=== PATIENT | female | born 1970 | race Caucasian/White ===

== ENCOUNTER 2017-07-15 12:11 | Emergency (ER) | payer BC, MEDICAID ==
[~2017-07-15] VITALS: Ht 160 cm; Wt 99.8 kg
[~2017-07-15 12:11] MED LIST: ALPR1T; ATRV10T; Advair; Albuterol Inhaler; BENZ100C18; BSP10T; BUSPAR; CELEBREX; CPR500T; CPR500T PO; Celebrex; DESM0.1T; DETROL; HYDR-32; HYDR-34; LEVO500T69 PO; LNS30CCR; LVF250T PO; METH4TAB PO; METR500T PO; MNTL10T; NAPR500T PO; Nexium; PARO10TA21; PHEN200T27; PRD10T; PROP1TAB77; RT-COMBINH; STOOL SOFTENER; TRM50T PO; Xopenex
--- OUTSIDE RECORDS SUMMARY | 2017-07-15 12:27 | XMS REPORT ---
Author Author KISHORE SARGENT Organization eClinicalWorks Address Unknown Phone Unavailable Care Team Providers Care Event Representative Name Role Phone KISHORE SARGENT CP Unavailable Allergies No Known Allergies Problems Problem Type Condition Code Onset Dates Condition Status Problem Overactive bladder N32.81 Active Problem Hepatitis B B19.10 Active Problem Type 2 diabetes mellitus with other specified complication E11.69 Active Problem Restless legs syndrome G25.81 Active Problem Depressive disorder, not elsewhere classified F32.9 Active Problem Degenerative disc disease, lumbar M51.36 Active Problem Anxiety F41.9 Active Problem Hypothyroid E03.9 Active Problem Asthma J45.909 Active Medications No Known Medications Results No Known Results Summary Purpose eClinicalWorks Submission
--- OUTSIDE RECORDS SUMMARY | 2017-07-15 12:27 | XMS REPORT ---
Author KISHORE Nicolas [facility] eClinicalWorks Address Unknown Phone Unavailable Care Team Providers Care Doper Operator Name Role Phone KISHORE SARGENT Unavailable Allergies No Known Allergies Problems Problem Type Condition Code Onset Dates Condition Status Problem Overactive bladder N32.81 Active Problem Degenerative disc disease, lumbar M51.36 Active Problem Anxiety F41.9 Active Problem Hepatitis B B19.10 Active Problem COPD (chronic obstructive pulmonary disease) J44.9 Active Problem Depressive disorder, not elsewhere classified F32.9 Active Problem Insomnia G47.00 Active Problem Hypothyroid E03.9 Active Problem Asthma J45.909 Active Problem Type 2 diabetes mellitus with other specified complication E11.69 Active Problem Restless legs syndrome G25.81 Active Medications Medication Code System Code Instructions Start Date End Date Status Dosage OxyContin [facility] 52599958649 30 MG orally every 12 hours 1 tablet Results No Known Results Summary Purpose eClinicalWorks Submission
--- OUTSIDE RECORDS SUMMARY | 2017-07-15 12:27 | XMS REPORT ---
Author Author KISHORE SARGENT [facility] eClinicalWorks Address Unknown Phone Unavailable Care Team Providers Care Boulevard Glassware Replacer Name Role Phone KISHORE SARGENT CP Unavailable Allergies No Known Allergies Problems Problem Type Condition Code Onset Dates Condition Status Problem Anxiety 300.00 Active Problem Diabetes 250.00 Active Problem Hepatitis B 070.30 Active Problem Degenerative lumbar disc 722.52 Active Problem Overactive bladder 596.51 Active Problem Hypothyroidism 244.9 Active Problem Asthma 493.90 Active Medications Medication Code System Code Instructions Start Date End Date Status Dosage Hydrocodone-Acetaminophen [facility] [address]-10 7.5-325 MG Orally 3 times a day MAX MUST LAST 30 DAYS Aug 22, 2015 1 tablet as needed OxyContin [facility] [address]-73 10 MG Orally every 12 hrs Aug 15, 2015 1 tablet Results No Known Results Summary Purpose eClinicalWorks Submission
--- OUTSIDE RECORDS SUMMARY | 2017-07-15 12:27 | XMS REPORT ---
Author Author KISHORE SARGENT [facility] eClinicalWorks Address Unknown Phone Unavailable Care Team Providers Care Business Administration Professor Name Role Phone KISHORE SARGENT Unavailable Allergies No Known Allergies Problems Problem Type Condition Code Onset Dates Condition Status Assessment Degenerative lumbar disc 722.52 Active Assessment Other intervertebral disc degeneration, lumbar region M51.36 Active Problem Anxiety 300.00 Active Problem Diabetes 250.00 Active Problem Hepatitis B 070.30 Active Problem Degenerative lumbar disc 722.52 Active Problem Overactive bladder 596.51 Active Problem Hypothyroidism 244.9 Active Problem Asthma 493.90 Active Medications No Known Medications Procedures Procedure Coding System Code Date X-RAY EXAM OF LOWER SPINE CPT-4 39240 Sep 17, 2015 Results No Known Results Summary Purpose eClinicalWorks Submission
--- OUTSIDE RECORDS SUMMARY | 2017-07-15 12:27 | XMS REPORT ---
Author Author KISHORE SARGENT Organization eClinicalWorks Address Unknown Phone Unavailable Care Team Providers Care Ceramics Engineer Name Role Phone KISHORE SARGENT Unavailable Allergies No Known Allergies Problems Problem Type Condition Code Onset Dates Condition Status Problem Anxiety 300.00 Active Problem Diabetes 250.00 Active Problem Hepatitis B 070.30 Active Problem Degenerative lumbar disc 722.52 Active Problem Overactive bladder 596.51 Active Problem Hypothyroidism 244.9 Active Problem Asthma 493.90 Active Medications Medication Code System Code Instructions Start Date End Date Status Dosage ProAir HFA [facility] [address]-42 108 (90 Base) MCG/ACT Inhalation every 4hours prn Sep 09, 2015 2 puffs as needed Results No Known Results Summary Purpose eClinicalWorks Submission
--- OUTSIDE RECORDS SUMMARY | 2017-07-15 12:28 | XMS REPORT ---
Author Author KISHORE SARGENT [facility] eClinicalWorks Address Unknown Phone Unavailable Care Team Providers Care Government Affairs Researcher Name Role Phone KISHORE SARGENT CP Unavailable [...] E03.9 Active Problem Asthma J45.909 Active Medications Medication Code System Code Instructions Start Date End Date Status Dosage MetFORMIN HCl [facility] [address]-29 500 MG Orally Once a day Oct 15, 2015 1 tablet with evening meal Results No Known Results Summary Purpose eClinicalWorks Submission
--- OUTSIDE RECORDS SUMMARY | 2017-07-15 12:28 | XMS REPORT ---
Author Author KISHORE SARGENT [facility] eClinicalWorks Address Unknown Phone Unavailable Care Team Providers Care C Python Developer Name Role Phone KISHORE SARGENT CP Unavailable [...] Instructions Start Date End Date Status Dosage Desmopressin Acetate [facility] [address]-79 0.2 MG Orally Once a day January 3 tablet Results No Known Results Summary Purpose eClinicalWorks Submission
--- OUTSIDE RECORDS SUMMARY | 2017-07-15 12:28 | XMS REPORT ---
Author Author KISHORE SARGENT Organization eClinicalWorks Address Unknown Phone Unavailable Care Team Providers Care Neonatal Intensive Care Nurse Name Role Phone KISHORE SARGENT CP Unavailable Allergies No Known Allergies Problems Problem Type Condition Code Onset Dates Condition Status Problem Hepatitis B B19.10 Active Problem Restless legs syndrome G25.81 Active Problem Hypothyroid E03.9 Active Problem Type 2 diabetes mellitus with other specified complication E11.69 Active Problem Anxiety F41.9 Active Problem Overactive bladder N32.81 Active Problem Asthma J45.909 Active Problem Degenerative disc disease, lumbar M51.36 Active Medications Medication Code System Code Instructions Start Date End Date Status Dosage ProAir HFA [facility] [address]-45 108 (90 Base) MCG/ACT Inhalation every 4hours prn Sep 09, 2015 2 puffs as needed Results No Known Results Summary Purpose eClinicalWorks Submission
--- OUTSIDE RECORDS SUMMARY | 2017-07-15 12:28 | XMS REPORT ---
Author Author KISHORE SARGENT [facility] eClinicalWorks Address Unknown Phone Unavailable Care Team Providers Care Ring Sorter Name Role Phone KISHORE SARGENT CP Unavailable Allergies No Known Allergies Problems Problem Type Condition Code Onset Dates Condition Status Problem Overactive bladder N32.81 Active Problem Degenerative disc disease, lumbar M51.36 Active Problem Anxiety F41.9 Active Problem COPD (chronic obstructive pulmonary disease) J44.9 Active Problem Depressive disorder, not elsewhere classified F32.9 Active Problem Insomnia G47.00 Active Problem Hypothyroid E03.9 Active Problem Asthma J45.909 Active Problem Type 2 diabetes mellitus with other specified complication E11.69 Active Problem Restless legs syndrome G25.81 Active Assessment Other intervertebral disc degeneration, lumbar region M51.36 Active Assessment Anxiety F41.9 Active Problem Hepatitis B B19.10 Active Medications Medication Code System Code Instructions Start Date End Date Status Dosage Hydrocodone-Acetaminophen [facility] [address]-33 7.5-325 MG Orally 3 times a day MAX MUST LAST 30 DAYS Aug 22, 2015 1 tablet as needed OxyContin [facility] [address]-34 30 MG Orally every 12 hrs Nov 12, 2015 1 tablet Xanax [facility] [address]-55 0.5 MG Orally Twice a day Oct 15, 2015 1 tablet Results No Known Results Summary Purpose eClinicalWorks Submission
--- OUTSIDE RECORDS SUMMARY | 2017-07-15 12:28 | XMS REPORT ---
Author Author KISHORE SARGENT Organization [facility] Address [address] [place] [address] Care Team Providers Care Scroll Shear Operator Name Role Phone DONNIE SARGENTNETTE Unavailable PROBLEMS Type Condition ICD9-CM Code [id number] Code Onset Dates Condition Status SNOMED Code Problem Overactive bladder N32.81 Active 577527943 Problem Degenerative disc disease, lumbar M51.36 Active 59753489 Problem Anxiety F41.9 Active 69540701 Problem Hepatitis B B19.10 Active 77797263 Problem Insomnia G47.00 Active 567931468 Problem COPD (chronic obstructive pulmonary disease) J44.9 Active 79396765 Problem Restless legs syndrome G25.81 Active 434956301 Problem Asthma J45.909 Active 922968425 Problem Depressive disorder, not elsewhere classified F32.9 Active 34947830 Problem Type 2 diabetes mellitus with other specified complication E11.69 Active 982450813 ALLERGIES Unknown Allergies SOCIAL HISTORY No smoking Hx information available PLAN OF CARE VITAL SIGNS MEDICATIONS Medication Instructions Dosage Frequency Start Date End Date Duration Status Montelukast Sodium 10 MG TAKE ONE TABLET BY MOUTH IN THE EVENING 30 Active Hydrocodone-Acetaminophen 7.5-325 MG TAKE ONE TABLET BY MOUTH THREE TIMES DAILY NEEDED (MUST LAST 28 DAYS) 28 Active Xanax 0.5 MG Orally Twice a day 1 tablet 12h 17 Sep, 2015 28 Active OxyContin 30 MG TAKE ONE TABLET BY MOUTH EVERY 12 HOURS 28 Active RESULTS No Results PROCEDURES No Known procedures IMMUNIZATIONS No Known Immunizations
--- OUTSIDE RECORDS SUMMARY | 2017-07-15 12:28 | XMS REPORT ---
Author Author KISHORE SARGENT Organization eClinicalWorks Address Unknown Phone Unavailable Care Team Providers Care Fellmongering Machine Operator Name Role Phone KISHORE SARGENT CP Unavailable [...]
--- OUTSIDE RECORDS SUMMARY | 2017-07-15 12:28 | XMS REPORT ---
Author Author KISHORE SARGENT [facility] eClinicalWorks Address Unknown Phone Unavailable Care Team Providers Care Lockstitch Tunnel Elastic Operator Name Role Phone KISHORE SARGENT CP Unavailable Allergies No Known Allergies Problems Problem Type Condition Code Onset Dates Condition Status Problem Hepatitis B B19.10 Active Problem Anxiety F41.9 Active Problem Overactive bladder N32.81 Active Problem COPD (chronic obstructive pulmonary disease) J44.9 Active Problem Depressive disorder, not elsewhere classified F32.9 Active Problem Insomnia G47.00 Active Problem Asthma J45.909 Active Problem Degenerative disc disease, lumbar M51.36 Active Problem Type 2 diabetes mellitus with other specified complication E11.69 Active Problem Restless legs syndrome G25.81 Active Medications No Known Medications Results No Known Results Summary Purpose eClinicalWorks Submission
--- OUTSIDE RECORDS SUMMARY | 2017-07-15 12:28 | XMS REPORT ---
Author Author KISHORE SARGENT [facility] eClinicalWorks Address Unknown Phone Unavailable Care Team Providers Care Anesthesiologist Attending Name Role Phone KISHORE SARGENT Unavailable Allergies No Known Allergies Problems Problem Type Condition ICD-9 Code Onset Dates Condition Status Problem Hypothyroidism 244.9 Active Problem Asthma 493.90 Active Problem Diabetes 250.00 Active Assessment Hepatitis B 070.30 Active Problem Degenerative lumbar disc 722.52 Active Problem Overactive bladder 596.51 Active Medications Medication Code System Code Instructions Start Date End Date Status Dosage Pravastatin Sodium [facility] [address]-99 20 MG Orally Once a day Aug 19, 2015 1 tablet Procedures Procedure Coding System Code Date No Charge CPT-4 06379 Aug 19, 2015 Results No Known Results Summary Purpose eClinicalWorks Submission
--- OUTSIDE RECORDS SUMMARY | 2017-07-15 12:28 | XMS REPORT ---
Author Author TUYET LAUGHLIN Organization [facility] Address [address] [place] [address] Care Team Providers Care Right Of Way Appraiser Name Role Phone TUYET LAUGHLIN Unavailable PROBLEMS Type Condition ICD9-CM Code [id number] Code Onset Dates Condition Status SNOMED Code Problem Depressive disorder, not elsewhere classified F32.9 Active 50530291 Problem Insomnia G47.00 Active 268542029 Problem COPD (chronic obstructive pulmonary disease) J44.9 Active 07520263 Problem Asthma 493.90 Active 200356705 Problem Hypothyroidism, unspecified E03.9 Active 53542829 Problem Chronic pain syndrome G89.4 Active 246823096 Problem Mild intermittent asthma without complication J45.20 Active 332276199 Problem Gastroesophageal reflux disease with esophagitis K21.0 Active 171085928 Problem Combined hyperlipidemia E78.2 Active 713890405 Problem Hepatitis B B19.10 Active 84788413 Problem Degenerative disc disease, lumbar M51.36 Active 03450850 Problem Asthma J45.909 Active 182407070 Problem Overactive bladder N32.81 Active 780831181 Problem Restless legs syndrome G25.81 Active 663263962 Problem Anxiety F41.9 Active 65574079 Problem Type 2 diabetes mellitus with other specified complication E11.69 Active 896184130 ALLERGIES Unknown Allergies SOCIAL HISTORY No smoking Hx information available PLAN OF CARE VITAL SIGNS MEDICATIONS Medication Instructions Dosage Frequency Start Date End Date Duration Status MS Contin 30 MG Orally every 12 hrs 1 tablet 12h 13 Oct, 2016 Nov, 28 days Active Xanax 0.5 MG Orally Twice a day 1 tablet 12h Sep, 28 Active Hydrocodone-Acetaminophen 7.5-325 MG Orally every 8 hours, PRN TAKE ONE TABLET BY MOUTH THREE TIMES DAILY NEEDED (MUST LAST 28 DAYS) Sep, 28 Active RESULTS No Results PROCEDURES No Known procedures IMMUNIZATIONS No Known Immunizations
--- OUTSIDE RECORDS SUMMARY | 2017-07-15 12:28 | XMS REPORT ---
Author KISHORE Nicolas [facility] eClinicalWorks Address Unknown Phone Unavailable Care Team Providers Care Principal Architectural Firm Name Role Phone KISHORE SARGENT CP Unavailable Allergies, Adverse Reactions, Alerts Substance Reaction Event Type N.K.D.A. Info Not Available Non Drug Allergy Problems Problem Type Condition Code Onset Dates Condition Status Assessment Anxiety F41.9 Active Problem Overactive bladder N32.81 Active Problem Hepatitis B B19.10 Active Assessment Type 2 diabetes mellitus with other specified complication E11.69 Active Assessment Depressive disorder, not elsewhere classified F32.9 Active Problem Type 2 diabetes mellitus with other specified complication E11.69 Active Problem Restless legs syndrome G25.81 Active Problem Depressive disorder, not elsewhere classified F32.9 Active Problem Degenerative disc disease, lumbar M51.36 Active Problem Anxiety F41.9 Active Problem Hypothyroid E03.9 Active Problem Asthma J45.909 Active Medications Medication Code System Code Instructions Start Date End Date Status Dosage Hydrocodone-Acetaminophen [facility] [address]-07 7.5-325 MG Orally 3 times a day MAX MUST LAST 30 DAYS Aug 22, 2015 1 tablet as needed Levothyroxine Sodium [facility] [address]-60 88 MCG Orally twice weekly with 3 days between shampoos [address] [facility] [address]-98 10 MG Orally every 12 hrs Aug 15, 2015Oct [address] [facility] [address]-[address] [facility] [address]-50 200 MG Orally Once a day [address] [facility] [address]-35 10 MG Orally Once a day [address] [facility] [address]-69 250-50 MCG/DOSE Inhalation Twice a day Oct 15, [address] [facility] [address]-18 0.2 MG Orally Once a day Nov 13, [address] [facility] [address]-57 10 MG Orally Once a day Aug 15, 2015 1 tablet in the evening MetFORMIN HCl ER [facility] [address]-40 500 MG Orally Once a day Oct 15, 2015 1 tablet with evening meal Requip [facility] [address]-34 2 MG Orally Once a day before bed Sep 23, 2015 1 tablet 1 to 3 hours before bedtime Pravastatin Sodium [facility] 57660918893 20 MG Orally Once a day [address] [facility] 59173280542 108 (90 Base) MCG/ACT INHALE TWO PUFFS BY MOUTH EVERY [address] [facility] [address]-84 0.5 MG Orally Twice a day Oct 15, 2015 1 tablet Procedures Procedure Coding System Code Date Office Visit, Est Pt., Level 3 CPT-4 94792 Oct 29, 2015 Vital Signs Date/Time: Oct 29, 2015 Temperature 98.3 F Weight 299.1 lbs Height 63.0 in BMI 52.98 Index Blood Pressure Diastolic 82 mmHg Blood Pressure Systolic 122 mmHg Cardiac Monitoring Heart Rate 76 bpm Results No Known Results Summary Purpose eClinicalWorks Submission
--- OUTSIDE RECORDS SUMMARY | 2017-07-15 12:28 | XMS REPORT ---
Author KISHORE Nicolas [facility] eClinicalWorks Address Unknown Phone Unavailable Care Team Providers Care Log Handler Name Role Phone KISHORE SARGENT Unavailable Allergies [...] Date Status Dosage Hydrocodone-Acetaminophen [facility] 75256962371 7.5-325 MG Oct 05, 2016 TAKE ONE TABLET BY MOUTH THREE TIMES DAILY NEEDED (MUST LAST 28 DAYS) OxyContin [facility] [address]-33 30 MG Orally 2 times a day Oct 05, 2016 1 tablet Alprazolam [facility] 85829083304 0.5 MG TAKE ONE TABLET BY MOUTH TWICE DAILY Results No Known Results Summary Purpose eClinicalWorks Submission
--- OUTSIDE RECORDS SUMMARY | 2017-07-15 12:28 | XMS REPORT ---
Author Author KISHORE SARGENT [facility] eClinicalWorks Address Unknown Phone Unavailable Care Team Providers Care Rivet Tosser Name Role Phone KISHORE SARGENT CP Unavailable [...] Restless legs syndrome G25.81 Active Assessment Other chronic pain G89.29 Active Assessment COPD (chronic obstructive pulmonary disease) J44.9 Active Assessment Anxiety F41.9 Active Problem Hepatitis B B19.10 Active Medications Medication Code System Code Instructions Start Date End Date Status Dosage OxyContin [facility] [address]-83 30 MG Orally every 12 hrs Nov 12, 2015 1 tablet Xanax [facility] [address]-73 0.5 MG Orally Twice a day Oct 15, 2015 1 tablet Hydrocodone-Acetaminophen [facility] [address]-44 7.5-325 MG Orally 3 times a day Aug 22, 2015 1 tablet as needed Results No Known Results Summary Purpose eClinicalWorks Submission
--- OUTSIDE RECORDS SUMMARY | 2017-07-15 12:29 | XMS REPORT ---
Author Author KISHORE SARGENT [facility] eClinicalWorks Address Unknown Phone Unavailable Care Team Providers Care Cleaning Team Member Name Role Phone KISHORE SARGENT CP Unavailable Allergies No Known Allergies Problems Problem Type Condition Code Onset Dates Condition Status Problem Type 2 diabetes mellitus with other specified complication E11.69 Active Problem COPD (chronic obstructive pulmonary disease) J44.9 Active Problem Depressive disorder, not elsewhere classified F32.9 Active Problem Hypothyroidism, unspecified E03.9 Active Problem Gastroesophageal reflux disease with esophagitis K21.0 Active Problem Asthma 493.90 Active Problem Mild intermittent asthma without complication J45.20 Active Problem Insomnia G47.00 Active Problem Combined hyperlipidemia E78.2 Active Problem Chronic pain syndrome G89.4 Active Problem Anxiety F41.9 Active Problem Degenerative disc disease, lumbar M51.36 Active Problem Hepatitis B B19.10 Active Problem Asthma J45.909 Active Problem Overactive bladder N32.81 Active Problem Restless legs syndrome G25.81 Active Medications No Known Medications Results No Known Results Summary Purpose eClinicalWorks Submission
--- OUTSIDE RECORDS SUMMARY | 2017-07-15 12:29 | XMS REPORT ---
Author Author KISHORE SARGENT Organization eClinicalWorks Address Unknown Phone Unavailable Care Team Providers Care Guest Experience Representative Name Role Phone KISHORE SARGENT CP [...]
--- OUTSIDE RECORDS SUMMARY | 2017-07-15 12:29 | XMS REPORT ---
Author Author KISHORE SARGENT [facility] eClinicalWorks Address Unknown Phone Unavailable Care Team Providers Care Laundry Operator Finishing Name Role Phone KISHORE SARGENT CP Unavailable [...] Instructions Start Date End Date Status Dosage GlipiZIDE [facility] [address]-69 10 MG Orally Once a day 1 tablet Results No Known Results Summary Purpose eClinicalWorks Submission
--- OUTSIDE RECORDS SUMMARY | 2017-07-15 12:29 | XMS REPORT ---
Author Author VERONICA GRIJALVA eClinicalWorks Address Unknown Phone Unavailable Care Team Providers Care Boring Machine Operator Helper Name Role Phone VERONICA GRIJALVA CP Unavailable Allergies, Adverse Reactions, Alerts Substance Reaction Event Type N.K.D.A. Info Not Available Non Drug Allergy Problems Problem Type Condition Code Onset Dates Condition Status Assessment Dental examination Z01.20 Active Problem Overactive bladder N32.81 Active Problem [...] Instructions Start Date End Date Status Dosage Requip [facility] [address]-03 2 MG Orally Once a day before bed Sep 23, 2015 1 tablet 1 to 3 hours before bedtime Advair Diskus [facility] [address]-56 250-50 MCG/DOSE Inhalation Twice a day Oct 15, 2015 1 puff Levothyroxine Sodium [facility] [address]-72 88 MCG Orally Once a day 1 tablet MetFORMIN HCl ER [facility] [address]-27 not defined Hydrocodone-Acetaminophen [facility] [address]-13 7.5-325 MG Orally 3 times a day MAX MUST LAST 30 DAYS Aug 22, 2015 1 tablet as needed MetFORMIN HCl ER [facility] [address]-07 500 MG Orally Once a day Oct 15, 2015 1 tablet with evening meal Pravastatin Sodium [facility] 72977862303 20 MG Orally Once a day 1 tablet Singulair [facility] 82818591937 10 MG Orally Once a day 1 tablet in the evening Xanax [facility] [address]-28 0.5 MG Orally Twice a day Oct 15, 2015 1 tablet GlipiZIDE [facility] [address]-25 10 MG Orally Once a day 1 tablet Desmopressin Acetate [facility] [address]-51 0.2 MG Orally Once a day January 3 tablet OxyContin [facility] [address]-24 30 MG Orally every 12 hrs Nov 12, 2015 1 tablet Celebrex [facility] [address]-26 200 MG Orally Once a day 1 capsule ProAir HFA [facility] 57473461373 108 (90 Base) MCG/ACT INHALE TWO PUFFS BY MOUTH EVERY 4 HOURS NEEDED Procedures Procedure Coding System Code Date INTRAORL-PERIAPICAL 1 FILM 23286 CPT-4 D0220 Nov 27, 2015 LTD ORAL EVALUATION - PROBLEM FOCUS CPT-4 D0140 Nov 27, 2015 Vital Signs Date/Time: Nov 27, 2015 Blood Pressure Diastolic 65 mmHg Blood Pressure Systolic 130 mmHg Height 63.0 in Results No Known Results Summary Purpose eClinicalWorks Submission
--- OUTSIDE RECORDS SUMMARY | 2017-07-15 12:29 | XMS REPORT ---
Author Author KISHORE SARGENT Organization eClinicalWorks Address Unknown Phone Unavailable Care Team Providers Care Head Track Coach Name Role Phone KISHORE SARGENT CP Unavailable [...]
--- OUTSIDE RECORDS SUMMARY | 2017-07-15 12:29 | XMS REPORT ---
Author Author KISHORE SARGENT [facility] eClinicalWorks Address Unknown Phone Unavailable Care Team Providers Care School Office Manager Name Role Phone KISHORE SARGENT CP Unavailable [...] Instructions Start Date End Date Status Dosage Levothyroxine Sodium [facility] [address]-89 88 MCG Orally Once a day 1 tablet Results No Known Results Summary Purpose eClinicalWorks Submission
--- OUTSIDE RECORDS SUMMARY | 2017-07-15 12:29 | XMS REPORT ---
Author KISHORE Nicolas [facility] eClinicalWorks Address Unknown Phone Unavailable Care Team Providers Care [employer] D[employer] Specialist Name Role Phone KISHORE SARGENT CP Unavailable Allergies, Adverse Reactions, Alerts Substance Reaction Event Type N.K.D.A. Info Not Available Non Drug Allergy Problems Problem Type Condition Code Onset Dates Condition Status Assessment Dysuria R30.0 Active Problem Overactive bladder N32.81 Active Problem Hepatitis B B19.10 Active Problem Type 2 diabetes mellitus with other specified complication E11.69 Active Problem Restless legs syndrome G25.81 Active Problem Depressive disorder, not elsewhere classified F32.9 Active Problem Degenerative disc disease, lumbar M51.36 Active Problem Anxiety F41.9 Active Problem Hypothyroid E03.9 Active Problem Asthma J45.909 Active Assessment Overactive bladder N32.81 Active Assessment Depressive disorder, not elsewhere classified F32.9 Active Assessment Hypercholesterolemia E78.0 Active Assessment Hypothyroid E03.9 Active Assessment Restless legs syndrome G25.81 Active Assessment Degenerative disc disease, lumbar M51.36 Active Assessment Type 2 diabetes mellitus with other specified complication E11.69 Active Assessment Asthma J45.909 Active Assessment Anxiety F41.9 Active Medications Medication Code System Code Instructions Start Date End Date Status Dosage Levothyroxine Sodium [facility] [address]-66 88 MCG Orally Once a day 1 tablet Hydrocodone-Acetaminophen [facility] [address]-56 7.5-325 MG Orally 3 times a day MAX MUST LAST 30 DAYS Aug 22, 2015 1 tablet as needed Pravastatin Sodium [facility] 37487414504 20 MG Orally Once a day 1 tablet MetFORMIN HCl ER [facility] [address]-09 not defined Singulair [facility] 93918465977 10 MG Orally Once a day 1 tablet in the evening GlipiZIDE [facility] [address]-72 10 MG Orally Once a day 1 tablet OxyContin [facility] [address]-42 30 MG Orally every 12 hrs Nov 12, 2015 1 tablet Celebrex [facility] [address]-70 200 MG Orally Once a day 1 capsule Advair Diskus [facility] [address]-46 250-50 MCG/DOSE Inhalation Twice a day Oct 15, 2015 1 puff Desmopressin Acetate [facility] [address]-65 0.2 MG Orally Once a day January 3 tablet Requip [facility] [address]-15 2 MG Orally Once a day before bed Sep 23, 2015 1 tablet 1 to 3 hours before bedtime Cipro [facility] [address]-52 500 MG Orally Twice a day Nov 12, 2015 Nov 19, 2015 1 tablet ProAir HFA [facility] 24941376974 108 (90 Base) MCG/ACT INHALE TWO PUFFS BY MOUTH EVERY 4 HOURS NEEDED MetFORMIN HCl ER [facility] [address]-60 500 MG Orally Once a day Oct 15, 2015 1 tablet with evening meal Xanax [facility] [address]-44 0.5 MG Orally Twice a day Oct 15, 2015 1 tablet Procedures Procedure Coding System Code Date X-RAY EXAM OF NECK SPINE CPT-4 17150 Nov 12, 2015 Office Visit, Est Pt., Level 4 CPT-4 98196 Nov 12, 2015 URINALYSIS, AUTO, W/O SCOPE CPT-4 58919 Nov 12, 2015 Vital Signs Date/Time: Nov 12, 2015 Temperature 96.8 F Weight 288.6 lbs Height 63.0 in BMI 51.12 Index Blood Pressure Diastolic 80 mmHg Blood Pressure Systolic 120 mmHg Cardiac Monitoring Heart Rate 78 bpm Results Name Result Date Reference Range Unit Abnormality Flag UA LONG DIP (IN HOUSE) ----REYES negative 20151112 ----NIT negative 20151112 ----SG >1.030 20151112 ----KET negative 20151112 ----YASIR negative 20151112 ----GLU negative 20151112 ----Odor no 20151112 ----pH 5.5 20151112 ----BLO 3+ 20151112 ----URO 0.2 20151112 ----Protein trace 20151112 ----Lot # [id number] ----Exp date 20151112 ----Clarity clear 20151112 ----Color yellow 20151112 Summary Purpose eClinicalWorks Submission
--- OUTSIDE RECORDS SUMMARY | 2017-07-15 12:29 | XMS REPORT ---
Author Author KISHORE SARGENT [facility] eClinicalWorks Address Unknown Phone Unavailable Care Team Providers Care Parole Or Probation Officer Name Role Phone KISHORE SARGENT Unavailable Allergies [...] Degenerative disc disease, lumbar M51.36 Active Medications No Known Medications Results No Known Results Summary Purpose eClinicalWorks Submission
--- OUTSIDE RECORDS SUMMARY | 2017-07-15 12:29 | XMS REPORT ---
Author Author KISHORE SARGENT [facility] Address [address] [place] [address] Care Team Providers Care Executive Services Administrator Name Role Phone KISHORE SARGENT Unavailable PROBLEMS Type Condition ICD9-CM Code [id number] Code Onset Dates Condition Status SNOMED Code Problem Overactive bladder N32.81 Active 270332734 Problem Degenerative disc disease, lumbar M51.36 Active 80299540 Problem Anxiety F41.9 Active 18507652 Problem Hepatitis B B19.10 Active 79913233 Problem Insomnia G47.00 Active 656065288 Problem COPD (chronic obstructive pulmonary disease) J44.9 Active 41292967 Problem Restless legs syndrome G25.81 Active 270166173 Problem Asthma J45.909 Active 020861205 Problem Depressive disorder, not elsewhere classified F32.9 Active 91217356 Problem Type 2 diabetes mellitus with other specified complication E11.69 Active 932662844 ALLERGIES Unknown Allergies SOCIAL HISTORY No smoking Hx information available PLAN OF CARE VITAL SIGNS MEDICATIONS Medication Instructions Dosage Frequency Start Date End Date Duration Status Levothyroxine Sodium 88 MCG Orally Once a day 1 tablet 24h 30 Active RESULTS No Results PROCEDURES No Known procedures IMMUNIZATIONS No Known Immunizations
--- OUTSIDE RECORDS SUMMARY | 2017-07-15 12:29 | XMS REPORT ---
Author Author KISHORE SARGENT Organization eClinicalWorks Address Unknown Phone Unavailable Care Team Providers Care Statistician Applied Name Role Phone KISHORE SARGENT CP Unavailable [...]
--- OUTSIDE RECORDS SUMMARY | 2017-07-15 12:29 | XMS REPORT ---
Author KISHORE Nicolas [facility] eClinicalWorks Address Unknown Phone Unavailable Care Team Providers Care Tobacco Hanger Name Role Phone KISHORE SARGENT CP Unavailable Allergies, Adverse Reactions, Alerts Substance Reaction Event Type N.K.D.A. Info Not Available Non Drug Allergy Problems Problem Type Condition Code Onset Dates Condition Status Assessment Type 2 diabetes mellitus with other specified complication E11.69 Active Problem Overactive bladder N32.81 Active Problem Hepatitis B B19.10 Active Problem Type 2 diabetes mellitus with other specified complication E11.69 Active Problem Restless legs syndrome G25.81 Active Problem Depressive disorder, not elsewhere classified F32.9 Active Problem Degenerative disc disease, lumbar M51.36 Active Problem Anxiety F41.9 Active Problem Hypothyroid E03.9 Active Problem Asthma J45.909 Active Assessment Anxiety F41.9 Active Assessment Overactive bladder N32.81 Active Assessment Asthma J45.909 Active Assessment Degenerative disc disease, lumbar M51.36 Active Assessment Restless legs syndrome G25.81 Active Medications Medication Code System Code Instructions Start Date End Date Status Dosage ProAir HFA [facility] [place] [address]-10 108 (90 Base) MCG/ACT Inhalation every 4hours prn Sep 09, 2015 2 puffs as needed Xanax [facility] [place] [address]-41 0.5 MG Orally Twice a day Oct 15, 2015 1 tablet Pravastatin Sodium [facility] 92398657594 20 MG Orally Once a day 1 tablet Levothyroxine Sodium [facility] [place] [address]-14 88 MCG Orally twice weekly with 3 days between shampoos 1 tablet OxyContin [facility] [place] [address]-32 10 MG Orally every 12 hrs Aug 15, 2015 1 tablet MetFORMIN HCl ER [facility] [place] [address]-06 not defined Hydrocodone-Acetaminophen [facility] [place] [address]-49 7.5-325 MG Orally 3 times a day MAX MUST LAST 30 DAYS Aug 22, 2015 1 tablet as needed Singulair [facility] [place] [address]-73 10 MG Orally Once a day Aug 15, 2015 1 tablet in the evening MetFORMIN HCl ER [facility] [place] [address]-95 500 MG Orally Once a day Oct 15, 2015 1 tablet with evening meal Requip [facility] [place] [address]-97 2 MG Orally Once a day before bed Sep 23, 2015 1 tablet 1 to 3 hours before bedtime Candida Contour Monitor [facility] [place] [address]-10 w/Device 2 times a day Aug 22, 2015 as directed Aspirin [facility] [place] 85[address]82 81 MG Orally Once a day 1 tablet GlipiZIDE [facility] [place] [address]-94 10 MG Orally Once a day 1 tablet Desmopressin Acetate [facility] [place] [address]-33 0.2 MG Orally Once a day Nov 13, 2015 3 tablet Candida Contour Test [facility] [place] [place] 0 1 3 times a day PER INSURANCE Aug 22, 2015 1 STRIP Advair Diskus [facility] [place] [address]-53 250-50 MCG/DOSE Inhalation Twice a day Oct 15, 2015 1 puff Celebrex [facility] [place] [address]-75 200 MG Orally Once a day 1 capsule Procedures Procedure Coding System Code Date Office Visit, Est Pt., Level 4 CPT-4 46691 Oct 15, 2015 Vital Signs Date/Time: Oct 15, 2015 Temperature 98.1 F Weight 291 lbs Height 63.0 in BMI 51.54 Index Blood Pressure Diastolic 68 mmHg Blood Pressure Systolic 128 mmHg Cardiac Monitoring Heart Rate 82 bpm Results No Known Results Summary Purpose eClinicalWorks Submission
--- OUTSIDE RECORDS SUMMARY | 2017-07-15 12:29 | XMS REPORT ---
Author Author OTILIA DIXON Organization eClinicalWorks Address Unknown Phone Unavailable Care Team Providers Care Lawn Mower Sharpener Name Role Phone OTILIA DIXON CP Unavailable Allergies No Known Allergies Problems Problem Type Condition Code Onset Dates Condition Status Assessment Depressive disorder, not elsewhere classified F32.9 Active Problem Overactive bladder N32.81 Active Problem Hepatitis B B19.10 Active Assessment Anxiety disorder, unspecified F41.9 Active Problem Type 2 diabetes mellitus with other specified complication E11.69 Active Problem Restless legs syndrome G25.81 Active Problem Depressive disorder, not elsewhere classified F32.9 Active Problem Degenerative disc disease, lumbar M51.36 Active Problem Anxiety F41.9 Active Problem Hypothyroid E03.9 Active Problem Asthma J45.909 Active Medications No Known Medications Procedures Procedure Coding System Code Date Psych diagnostic evaluation, established patient CPT-4 86273 Oct 15, 2015 Results No Known Results Summary Purpose eClinicalWorks Submission
--- OUTSIDE RECORDS SUMMARY | 2017-07-15 12:30 | XMS REPORT ---
Author KISHORE Nicolas [facility] eClinicalWorks Address Unknown Phone Unavailable Care Team Providers Care Appellate Court Clerk Name Role Phone KISHORE SARGENT Unavailable Allergies No Known Allergies Problems Problem Type Condition Code Onset Dates Condition Status Assessment Degenerative disc disease at L5-S1 level M51.36 Active Problem Overactive bladder N32.81 Active Problem [...]
--- OUTSIDE RECORDS SUMMARY | 2017-07-15 12:30 | XMS REPORT ---
Author KISHORE Nicolas [facility] eClinicalWorks Address Unknown Phone Unavailable Care Team Providers Care Production Quality Manager Name Role Phone KISHORE SARGENT CP Unavailable Allergies, Adverse Reactions, Alerts Substance Reaction Event Type N.K.D.A. Info Not Available Non Drug Allergy Problems Problem Type Condition Code Onset Dates Condition Status Assessment Degenerative disc disease, lumbar M51.36 Active Problem Hepatitis B B19.10 Active Assessment Type 2 diabetes mellitus with other specified complication E11.69 Active Problem Restless legs syndrome G25.81 Active Problem Hypothyroid E03.9 Active Problem Type 2 diabetes mellitus with other specified complication E11.69 Active Problem Anxiety F41.9 Active Problem Overactive bladder N32.81 Active Problem Asthma J45.909 Active Problem Degenerative disc disease, lumbar M51.36 Active Assessment Anxiety F41.9 Active Assessment Asthma J45.909 Active Assessment Hypercholesteremia E78.0 Active Assessment Hypothyroid E03.9 Active Assessment Overactive bladder N32.81 Active Assessment Restless legs syndrome G25.81 Active Medications Medication Code System Code Instructions Start Date End Date Status Dosage Hydrocodone-Acetaminophen [facility] [address]-12 7.5-325 MG Orally 3 times a day MAX MUST LAST 30 DAYS Aug 22, 2015 1 tablet as needed Desmopressin Acetate [facility] [address]-63 0.2 MG Orally Once a day Nov 13, 2015 3 tablet Singulair [facility] [address]-28 10 MG Orally Once a day Aug 15, 2015 1 tablet in the evening Candida Contour Monitor [facility] [address]-58 w/Device 2 times a day Aug 22, 2015 as directed Vistaril [facility] [address]-69 25 MG Orally every 8 hrs PRN ANXIETY Aug 22, 2015 1 capsule as needed OxyContin [facility] [address]-62 10 MG Orally every 12 hrs Aug 15, 2015 1 tablet Ativan [facility] [address]-41 0.5 MG Orally Twice a day Sep 23, 2015 1 tablet as needed Metformin HCl [facility] [address]-67 500 MG Orally Twice a day Aug 22, 2015 1 tablet with meals Levothyroxine Sodium [facility] [address]-91 88 MCG Orally twice weekly with 3 days between shampoos 1 tablet Candida Contour Test [facility] 0 1 3 times a day PER INSURANCE Aug 22, 2015 1 STRIP Aspirin [facility] [address]043 81 MG Orally Once a day 1 tablet ProAir HFA [facility] [address]-82 108 (90 Base) MCG/ACT Inhalation every 4hours prn Sep 09, 2015 2 puffs as needed Pravastatin Sodium [facility] 07707339567 20 MG Orally Once a day 1 tablet GlipiZIDE [facility] [address]-65 10 MG Orally Once a day 1 tablet Combivent Respimat [facility] [address]-03 20-100 MCG/ACT Inhalation Four times a day Aug 15, 2015 1 puff Requip [facility] [address]-23 2 MG Orally Once a day before bed Sep 23, 2015 1 tablet 1 to 3 hours before bedtime Symbicort [facility] [address]-35 160-4.5 MCG/ACT Inhalation Twice a day Sep 23, 2015 2 puffs Celebrex [facility] [address]-46 200 MG Orally Once a day 1 capsule Procedures Procedure Coding System Code Date Office Visit, S[place] Pt., Level 4 CPT-4 74339 Sep 23, 2015 Vital Signs Date/Time: Sep 23, 2015 Temperature 98.3 F Weight 292.5 lbs Height 63.0 in BMI 51.81 Index Blood Pressure Diastolic 70 mmHg Blood Pressure Systolic 122 mmHg Cardiac Monitoring Heart Rate 88 bpm Results No Known Results Summary Purpose eClinicalWorks Submission
--- OUTSIDE RECORDS SUMMARY | 2017-07-15 12:30 | XMS REPORT ---
Author KISHORE Nicoals [facility] eClinicalWorks Address Unknown Phone Unavailable Care Team Providers Care Traveling Auditor Name Role Phone KISHORE SARGENT Unavailable Allergies [...] Start Date End Date Status Dosage Hydrocodone-Acetaminophen [facility] [address]-35 7.5-325 MG Orally 3 times a day MAX MUST LAST 30 DAYS Aug 22, 2015 1 tablet as needed Results No Known Results Summary Purpose eClinicalWorks Submission
--- OUTSIDE RECORDS SUMMARY | 2017-07-15 12:30 | XMS REPORT ---
Author KISHORE Nicolas [facility] eClinicalWorks Address Unknown Phone Unavailable Care Team Providers Care Finish Repairer Name Role Phone KISHORE SARGENT CP Unavailable Allergies, Adverse Reactions, Alerts Substance Reaction Event Type N.K.D.A. Info Not Available Non Drug Allergy Problems Problem Type Condition ICD-9 Code Onset Dates Condition Status Assessment Asthma 493.90 Active Assessment Diabetes 250.00 Active Assessment Hypothyroidism 244.9 Active Problem Anxiety 300.00 Active Problem Diabetes 250.00 Active Problem Hepatitis B 070.30 Active Problem Degenerative lumbar disc 722.52 Active Problem Overactive bladder 596.51 Active Problem Hypothyroidism 244.9 Active Problem Asthma 493.90 Active Assessment Anxiety 300.00 Active Assessment Hepatitis B 070.30 Active Assessment Overactive bladder 596.51 Active Assessment Degenerative lumbar disc 722.52 Active Medications Medication Code System Code Instructions Start Date End Date Status Dosage Desmopressin Acetate [facility] [address]-09 0.2 MG Orally Once a day Nov 13, 2015 3 tablet Candida Contour Test [place] 0 1 3 times a day PER INSURANCE Aug 22, 2015 1 STRIP Celebrex [facility] [address]-99 200 MG Orally Once a day Aug 22, 2015 Nov 20, 2015 1 capsule Levothyroxine Sodium [facility] [address]-75 88 MCG Orally twice weekly with 3 days between shampoos 1 tablet Hydrocodone-Acetaminophen [facility] [address]-12 7.5-325 MG Orally 3 times a day MAX MUST LAST 30 DAYS Aug 22, 2015 Nov 20, 2015 1 tablet as needed OxyContin [facility] [address]-19 10 MG Orally every 12 hrs Aug 15, 2015Aug 1 tablet Candida Contour Monitor [facility] [address]-59 w/Device 2 times a day Aug 22, 2015 as directed Pravastatin Sodium [facility] [address]-52 20 MG Orally Once a day Aug 19, 2015 1 tablet Aspirin [facility] [address]77 81 MG Orally Once a day 1 tablet Singulair [facility] [address]-50 10 MG Orally Once a day Aug 15, 2015 1 tablet in the evening Vistaril [facility] [address]-22 25 MG Orally every 8 hrs PRN ANXIETY Aug 22, 2015 1 capsule as needed GlipiZIDE [facility] [address]-36 10 MG Orally Once a day 1 tablet Metformin HCl [facility] [address]-45 500 MG Orally Twice a day Aug 22, 2015 1 tablet with meals Combivent Respimat [facility] [address]-86 20-100 MCG/ACT Inhalation Four times a day Aug 15, 2015 1 puff Procedures Procedure Coding System Code Date Office Visit, Est Pt., Level 4 CPT-4 91761 Aug 22, 2015 Vital Signs Date/Time: Aug 22, 2015 Temperature 97.1 F Weight 295.0 lbs Height 63.0 in BMI 52.25 Index Blood Pressure Diastolic 70 mmHg Blood Pressure Systolic 120 mmHg Cardiac Monitoring Heart Rate 78 bpm Results No Known Results Summary Purpose eClinicalWorks Submission
--- OUTSIDE RECORDS SUMMARY | 2017-07-15 12:30 | XMS REPORT ---
Author KISHORE Nicolas [facility] eClinicalWorks Address Unknown Phone Unavailable Care Team Providers Care Back Roll Lathe Operator Name Role Phone KISHORE SARGENT CP [...] E03.9 Active Problem Asthma J45.909 Active Assessment Depressive disorder, not elsewhere classified F32.9 Active Assessment Degenerative disc disease, lumbar M51.36 Active Assessment Asthma J45.909 Active Assessment Overactive bladder N32.81 Active Assessment Hypothyroid E03.9 Active Assessment Anxiety F41.9 Active Assessment Restless legs syndrome G25.81 Active Medications Medication Code System Code Instructions Start Date End Date Status Dosage GlipiZIDE [facility] [address]-17 10 MG Orally Once a day 1 tablet ProAir HFA [facility] 42684616061 108 (90 Base) MCG/ACT INHALE TWO PUFFS BY MOUTH EVERY 4 HOURS NEEDED Trazodone HCl [facility] [address]-16 100 MG Orally Once a day Jan 01, 2016 1 tablet at bedtime Candida Contour Test [facility] 0 1 3 times a day PER INSURANCE Aug 22, 2015 1 STRIP Singulair [facility] 73455741166 10 MG Orally Once a day 1 tablet in the evening Hydrocodone-Acetaminophen [facility] [address]-52 7.5-325 MG Orally 3 times a day MAX MUST LAST 30 DAYS Aug 22, 2015 1 tablet as needed Desmopressin Acetate [facility] [address]-58 0.2 MG Orally Once a day January 3 tablet Celebrex [facility] 64197524942 200 MG Orally Once a day 1 capsule Pravastatin Sodium [facility] 11518087262 20 MG Orally Once a day 1 tablet Xanax [facility] [address]-61 0.5 MG Orally Twice a day Oct 15, 2015 1 tablet Advair Diskus [facility] [address]-91 250-50 MCG/DOSE Inhalation Twice a day Oct 15, 2015 1 puff MetFORMIN HCl ER [facility] [address]-65 500 MG Orally Once a day Oct 15, 2015 1 tablet with evening meal OxyContin [facility] [address]-64 30 MG Orally every 12 hrs Nov 12, 2015 1 tablet Candida Contour Monitor [facility] [address]-13 w/Device 2 times a day Aug 22, 2015 as directed Requip [facility] 53098234486 2 MG Orally Once a day before bed 1 tablet 1 to 3 hours before bedtime Levothyroxine Sodium [facility] [address]-71 88 MCG Orally Once a day 1 tablet Procedures Procedure Coding System Code Date Office Visit, Est Pt., Level 4 CPT-4 30655 Jan 01, 2016 GLYCATED HEMOGLOBIN TEST CPT-4 13070 Jan 01, 2016 Vital Signs Date/Time: Jan 01, 2016 Temperature 98.4 F Weight 271.9 lbs Height 63.0 in BMI 48.16 Index Blood Pressure Diastolic 86 mmHg Blood Pressure Systolic 122 mmHg Cardiac Monitoring Heart Rate 90 bpm Results Name Result Date Reference Range Unit Abnormality Flag A1C (IN HOUSE) ----A1C IN HOUSE 5.7 20160101 4.3 - 5.6 % ----Previous A1c 6.4 20160101 ----Lot [id number] ----Exp date 20160101 Summary Purpose eClinicalWorks Submission
--- OUTSIDE RECORDS SUMMARY | 2017-07-15 12:30 | XMS REPORT ---
Author KISHORE Nicolas [facility] eClinicalWorks Address Unknown Phone Unavailable Care Team Providers Care Apprentice Architect Name Role Phone KISHORE SARGENT CP Unavailable [...] Date End Date Status Dosage ProAir HFA [facility] [id number] 108 (90 Base) MCG/ACT INHALE TWO PUFFS BY MOUTH EVERY 4 HOURS NEEDED Results No Known Results Summary Purpose eClinicalWorks Submission
--- OUTSIDE RECORDS SUMMARY | 2017-07-15 12:30 | XMS REPORT ---
Author Author KISHORE SARGENT [facility] eClinicalWorks Address Unknown Phone Unavailable Care Team Providers Care Machine Boss Name Role Phone KISHORE SARGENT CP Unavailable [...] End Date Status Dosage ProAir HFA [facility] 48615077526 108 (90 Base) MCG/ACT as directed 2 puffs every 4 hours as needed INHALE TWO PUFFS BY MOUTH EVERY 4 HOURS NEEDED Results No Known Results Summary Purpose eClinicalWorks Submission
--- OUTSIDE RECORDS SUMMARY | 2017-07-15 12:30 | XMS REPORT ---
Author Author KISHORE SARGENT Organization eClinicalWorks Address Unknown Phone Unavailable Care Team Providers Care Workforce Management Coordinator Name Role Phone KISHORE SARGENT CP Unavailable [...]
--- OUTSIDE RECORDS SUMMARY | 2017-07-15 12:30 | XMS REPORT ---
Author KISHORE Nicolas [facility] eClinicalWorks Address Unknown Phone Unavailable Care Team Providers Care Store Planner Name Role Phone KISHORE SARGENT Unavailable Allergies [...] Start Date End Date Status Dosage Hydrocodone-Acetaminophen [facility] [id number] 7.5-325 MG TAKE ONE TABLET BY MOUTH THREE TIMES DAILY NEEDED (MUST LAST 28 DAYS) Results No Known Results Summary Purpose eClinicalWorks Submission
--- OUTSIDE RECORDS SUMMARY | 2017-07-15 12:31 | XMS REPORT ---
Author Author KISHORE SARGENT [facility] eClinicalWorks Address Unknown Phone Unavailable Care Team Providers Care Building Maintenance Superintendent Name Role Phone KISHORE SARGENT Unavailable Allergies No Known Allergies Problems Problem Type Condition ICD-9 Code Onset Dates Condition Status Problem Hypothyroidism 244.9 Active Problem Asthma 493.90 Active Problem Diabetes 250.00 Active Problem Degenerative lumbar disc 722.52 Active Problem Overactive bladder 596.51 Active Medications No Known Medications Results No Known Results Summary Purpose eClinicalWorks Submission
--- OUTSIDE RECORDS SUMMARY | 2017-07-15 12:31 | XMS REPORT ---
Author Author ARIE KISHORE Organization [facility] Address [address] [place] [address] Care Team Providers Care Storage Receipt Poster Name Role Phone EVELYN SARGENTE Unavailable PROBLEMS Type Condition ICD9-CM Code LAO52-DS Code Onset Dates Condition Status SNOMED Code Problem Depressive disorder, not elsewhere classified F32.9 Active 70448012 Problem Insomnia G47.00 Active 590534951 Problem COPD (chronic obstructive pulmonary disease) J44.9 Active 33387546 Problem Asthma 493.90 Active 784157920 Problem Hypothyroidism, unspecified E03.9 Active 80311043 Problem Chronic pain syndrome G89.4 Active 732362182 Problem Mild intermittent asthma without complication J45.20 Active 677870316 Problem Gastroesophageal reflux disease with esophagitis K21.0 Active 217238071 Problem Combined hyperlipidemia E78.2 Active 618699692 Problem Hepatitis B B19.10 Active 66417322 Problem Degenerative disc disease, lumbar M51.36 Active 40105454 Problem Asthma J45.909 Active 973975679 Problem Overactive bladder N32.81 Active 637422012 Problem Restless legs syndrome G25.81 Active 083322318 Problem Anxiety F41.9 Active 40394692 Problem Type 2 diabetes mellitus with other specified complication E11.69 Active 316230672 ALLERGIES Unknown Allergies SOCIAL HISTORY No smoking Hx information available PLAN OF CARE VITAL SIGNS MEDICATIONS Unknown Medications RESULTS No Results PROCEDURES No Known procedures IMMUNIZATIONS No Known Immunizations
--- OUTSIDE RECORDS SUMMARY | 2017-07-15 12:31 | XMS REPORT ---
Author Author KISHORE SARGENT Organization eClinicalWorks Address Unknown Phone Unavailable Care Team Providers Care Map Plotter Name Role Phone KISHORE SARGENT CP Unavailable [...]
--- OUTSIDE RECORDS SUMMARY | 2017-07-15 12:31 | XMS REPORT ---
Author Author KISHORE SARGENT [facility] eClinicalWorks Address Unknown Phone Unavailable Care Team Providers Care Monorail Hooker Name Role Phone KISHORE SARGENT Unavailable Allergies [...] Start Date End Date Status Dosage Hydrocodone-Acetaminophen [facility] [address]-59 7.5-325 MG Orally 3 times a day MAX MUST LAST 30 DAYS Aug 22, 2015 1 tablet as needed Results No Known Results Summary Purpose eClinicalWorks Submission
--- OUTSIDE RECORDS SUMMARY | 2017-07-15 12:31 | XMS REPORT ---
Author KISHORE Nicolas [facility] eClinicalWorks Address Unknown Phone Unavailable Care Team Providers Care Web Application Developer Name Role Phone KISHORE SARGENT CP [...] Start Date End Date Status Dosage OxyContin [facility] [address]-94 30 MG Orally 2 times a day Oct 05, 2016 1 tablet Results No Known Results Summary Purpose eClinicalWorks Submission
--- OUTSIDE RECORDS SUMMARY | 2017-07-15 12:31 | XMS REPORT ---
Author Author KISHORE SARGENT Organization eClinicalWorks Address Unknown Phone Unavailable Care Team Providers Care Cotton Stripper Name Role Phone KISHORE SARGENT CP Unavailable [...] Instructions Start Date End Date Status Dosage [facility] [address]-65 7.5 MG Orally bid Sep 03, 2015 Oct 03, 2015 1 tablet Results No Known Results Summary Purpose eClinicalWorks Submission
--- OUTSIDE RECORDS SUMMARY | 2017-07-15 12:31 | XMS REPORT ---
Author KISHORE Nicolas Organization eClinicalWorks Address Unknown Phone Unavailable Care Team Providers Care Game Producer Name Role Phone KISHORE SARGENT CP Unavailable [...] Start Date End Date Status Dosage OxyContin [facility][NOTE 3] [address]-92 30 MG Orally every 12 hrs Nov 12, 2015 1 tablet Xanax [facility][NOTE 3] [address]-86 0.5 MG Orally Twice a day Oct 15, 2015 1 tablet Results No Known Results Summary Purpose eClinicalWorks Submission
--- OUTSIDE RECORDS SUMMARY | 2017-07-15 12:31 | XMS REPORT ---
Author Author KISHORE SARGENT [facility] eClinicalWorks Address Unknown Phone Unavailable Care Team Providers Care Client Experience Administrator Name Role Phone KISHORE SARGENT CP Unavailable [...] Start Date End Date Status Dosage Hydrocodone-Acetaminophen [facility] [address]-33 7.5-325 MG Orally 3 times a day MAX MUST LAST 30 DAYS Aug 22, 2015 1 tablet as needed Results No Known Results Summary Purpose eClinicalWorks Submission
--- OUTSIDE RECORDS SUMMARY | 2017-07-15 12:31 | XMS REPORT ---
Author KISHORE Nicolas [facility] eClinicalWorks Address Unknown Phone Unavailable Care Team Providers Care Radiator Mechanic Name Role Phone KISHORE SARGENT CP Unavailable Allergies, Adverse Reactions, Alerts Substance Reaction Event Type N.K.D.A. Info Not Available Non Drug Allergy Problems Problem Type Condition Code Onset Dates Condition Status Assessment Mild intermittent asthma without complication J45.20 Active Problem Asthma J45.909 Active Assessment Chronic pain syndrome G89.4 Active Problem Restless legs syndrome G25.81 Active Assessment Combined hyperlipidemia E78.2 Active Problem Type 2 diabetes mellitus with other specified complication E11.69 Active Problem COPD (chronic obstructive pulmonary disease) J44.9 Active Problem Depressive disorder, not elsewhere classified F32.9 Active Problem Hypothyroidism, unspecified E03.9 Active Problem Gastroesophageal reflux disease with esophagitis K21.0 Active Assessment Degenerative disc disease, lumbar M51.36 Active Assessment Hypothyroidism, unspecified E03.9 Active Problem Asthma 493.90 Active Assessment Gastroesophageal reflux disease with esophagitis K21.0 Active Problem Mild intermittent asthma without complication J45.20 Active Problem Insomnia G47.00 Active Problem Combined hyperlipidemia E78.2 Active Problem Chronic pain syndrome G89.4 Active Assessment Anxiety F41.9 Active Assessment Type 2 diabetes mellitus with other specified complication E11.69 Active Assessment Overactive bladder N32.81 Active Assessment Restless legs syndrome G25.81 Active Problem Anxiety F41.9 Active Problem Degenerative disc disease, lumbar M51.36 Active Problem Hepatitis B B19.10 Active Problem Overactive bladder N32.81 Active Medications Medication Code System Code Instructions Start Date End Date Status Dosage Restoril [place] 55953618721 30 MG TAKE 1 CAPSULE BY MOUTH DAILY AT BEDTIME NEEDED Pravastatin Sodium ND 56578518762 20 MG Orally Once a day 1 tablet Celebrex ND 16378741496 200 MG Orally Once a day 1 capsule Montelukast Sodium ND 74611668945 10 MG TAKE ONE TABLET BY MOUTH IN THE EVENING Candida Contour Test NDC 0 1 3 times a day PER INSURANCE Aug 22, 2015 1 STRIP Alprazolam [facility] 66102045540 0.5 MG TAKE ONE TABLET BY MOUTH TWICE DAILY Requip [facility] 07146412785 2 MG Orally Once a day before bed 1 tablet 1 to 3 hours before bedtime MetFORMIN HCl ER [facility] 64189533180 500 MG Orally Once a day 1 tablet with evening meal Advair Diskus [facility] 57797147933 250-50 MCG/DOSE Inhalation Twice a day 1 puff OxyContin [facility] [address]-37 30 MG Orally 2 times a day Oct 05, 2016 1 tablet Candida Contour Monitor [facility] [address]-06 w/Device 2 times a day Aug 22, 2015 as directed Levothyroxine Sodium [facility] 59945978799 88 MCG Orally Once a day 1 tablet Aspirin [facility] 34453-24433 81 MG Orally Once a day 1 tablet Albuterol Sulfate [facility] [address]-74 (2.5 MG/3ML) 0.083% Inhalation 4 times a day February 13, 2016 3 ml Hydrocodone-Acetaminophen [facility] 62598528503 7.5-325 MG Oct 05, 2016 TAKE ONE TABLET BY MOUTH THREE TIMES DAILY NEEDED (MUST LAST 28 DAYS) ProAir HFA [facility] 50669556302 108 (90 Base) MCG/ACT as directed 2 puffs every 4 hours as needed INHALE TWO PUFFS BY MOUTH EVERY 4 HOURS NEEDED Xanax [facility] [address]-12 0.5 MG Orally Twice a day Oct 15, 2015 1 tablet Desmopressin Acetate [facility] 25145250182 0.2 MG Orally Once a day 3 tablet GlipiZIDE [facility] 90402534547 10 MG Orally Once a day 1 tablet Procedures Procedure Coding System Code Date DRUG SCREEN NON TLC DEVICES CPT-4 38090 Oct 26, 2016 Office Visit, Est Pt., Level 4 CPT-4 63457 Oct 26, 2016 GLYCATED HEMOGLOBIN TEST CPT-4 49802 Oct 26, 2016 Vital Signs Date/Time: Oct 26, 2016 Cardiac Monitoring Heart Rate 88 bpm Weight 251.3 lbs Height 63.0 in BMI 44.51 Index Blood Pressure Diastolic 74 mmHg Blood Pressure Systolic 133 mmHg Results Name Result Date Reference Range Unit Abnormality Flag A1C (IN HOUSE) ----A1C IN HOUSE 5.8 20161026 4.3 - 5.6 % ----Previous A1c 5.7 20161026 ----Lot [id number] 20161026 ----Exp date 20161026 URINE DRUG SCREEN (IN HOUSE) ----THC Negative 20161026 ----MTD Negative 20161026 ----BENZO Negative 20161026 ----OPIATE Negative 20161026 ----BAR Negative 20161026 ----OXY Negative 20161026 ----PCP Negative 20161026 ----BUP Negative 20161026 ----COCAINE Negative 20161026 ----MDMA Negative 20161026 ----AMPH Negative 20161026 ----Exp date 20161026 ----MAMP Negative 20161026 ----TCA Negative 20161026 ----Control + 20161026 ----Lot # [id number] 20161026 Summary Purpose eClinicalWorks Submission
--- OUTSIDE RECORDS SUMMARY | 2017-07-15 12:32 | XMS REPORT ---
Author KISHORE Nicolas [facility] eClinicalWorks Address Unknown Phone Unavailable Care Team Providers Care Editor Sound Name Role Phone KISHORE SARGENT CP Unavailable [...] Problem Restless legs syndrome G25.81 Active Assessment COPD (chronic obstructive pulmonary disease) J44.9 Active Assessment Depressive disorder, not elsewhere classified F32.9 Active Assessment Anxiety F41.9 Active Assessment Hypothyroid E03.9 Active Assessment Restless legs syndrome G25.81 Active Assessment Overactive bladder N32.81 Active Assessment Type 2 diabetes mellitus with other specified complication E11.69 Active Assessment Degenerative disc disease, lumbar M51.36 Active Problem Hepatitis B B19.10 Active Medications Medication Code System Code Instructions Start Date End Date Status Dosage Candida Contour Test [facility] 0 1 3 times a day PER INSURANCE Aug 22, 2015 1 STRIP Restoril [facility] 85834487401 30 MG TAKE 1 CAPSULE BY MOUTH DAILY AT BEDTIME NEEDED Levothyroxine Sodium [facility] 15672673749 88 MCG Orally Once a day 1 tablet Xanax [facility] [address]-83 0.5 MG Orally Twice a day Oct 15, 2015 1 tablet Desmopressin Acetate [facility] 22561478392 0.2 MG Orally Once a day 3 tablet Aspirin [facility] 67683-33580 81 MG Orally Once a day 1 tablet Montelukast Sodium [facility] 44081441774 10 MG TAKE ONE TABLET BY MOUTH IN THE EVENING Requip [facility] 75725352411 2 MG Orally Once a day before bed 1 tablet 1 to 3 hours before bedtime ProAir HFA [facility] 15337951391 108 (90 Base) MCG/ACT INHALE TWO PUFFS BY MOUTH EVERY 4 HOURS NEEDED OxyContin [facility] [address]-51 30 MG Orally every 12 hrs Nov 12, 2015May 1 tablet Hydrocodone-Acetaminophen [facility] [address]-54 7.5-325 MG Orally 3 times a day Aug 22, 2015 June 24, 2016 1 tablet as needed Celebrex [facility] 18408876621 200 MG Orally Once a day 1 capsule Candida Contour Monitor [facility] [address]-69 w/Device 2 times a day Aug 22, 2015 as directed Albuterol Sulfate [facility] [address]-55 (2.5 MG/3ML) 0.083% Inhalation 4 times a day February 13, 2016 3 ml GlipiZIDE [facility] 99075117916 10 MG Orally Once a day 1 tablet Advair Diskus [facility] 71983098341 250-50 MCG/DOSE Inhalation Twice a day 1 puff Pravastatin Sodium [facility] 71967182810 20 MG Orally Once a day 1 tablet MetFORMIN HCl ER [facility] 10150425629 500 MG Orally Once a day 1 tablet with evening meal Procedures Procedure Coding System Code Date Office Visit, Est Pt., Level 4 CPT-4 35680 June 11, 2016 GLYCATED HEMOGLOBIN TEST CPT-4 82391 June 11, 2016 Vital Signs Date/Time: June 11, 2016 Cardiac Monitoring Heart Rate 90 bpm Weight 252 lbs Height 63.0 in Blood Pressure Diastolic 70 mmHg Blood Pressure Systolic 122 mmHg Results No Known Results Summary Purpose eClinicalWorks Submission
--- OUTSIDE RECORDS SUMMARY | 2017-07-15 12:32 | XMS REPORT | Continuity of Care Document ---
Author Author [facility] Organization [facility] Address Unknown Phone Unavailable Allergies Active Description Code Type Severity Reaction Onset Reported/Identified Relationship to Patient Clinical Status Yes No Known Drug Allergies [id number] Drug Allergy Unknown N/ A 10/31/2007 Yes NKDA NKDA Mild N/A 04/04/2009 Medications Problems Date Dx Coded Attending Type Code Diagnosis Diagnosed By 12/03/2015 KISHORE SARGENTP Ot M51.36 12/03/2015 SAGRARIO OJEDA MD (DDU) Ot Z02.71 01/06/2016 KISHORE SAGRENT GLOBAL CLIMATE CHANGE RESEARCHER Ot M51.36 01/06/2016 SAGRARIO OJEDA MD (DDU) Ot Z02.71 01/06/2016 VERONICA RAWLS MD Ot M54.5 01/14/2016 KISHORE SARGENT GLOBAL CLIMATE CHANGE RESEARCHER Ot M51.36 01/14/2016 SAGRARIO OJEDA MD (DDU) Ot Z02.71 01/14/2016 KISHORE SARGENT GLOBAL CLIMATE CHANGE RESEARCHER Ot M51.36 01/14/2016 VERONICA RAWLS MD Ot M54.5 01/14/2016 VERONICA RAWLS MD Ot M54.5 01/20/2016 KISHORE SARGENT GLOBAL CLIMATE CHANGE RESEARCHER Ot M51.36 01/20/2016 SAGRARIO OJEDA MD (DDU) Ot Z02.71 01/20/2016 KISHORE SARGENT GLOBAL CLIMATE CHANGE RESEARCHER Ot M51.36 01/20/2016 KISHORE SARGENT GLOBAL CLIMATE CHANGE RESEARCHER Ot M51.36 01/20/2016 SAGRARIO OJEDA MD (DDU) Ot Z02.71 01/20/2016 KISHORE SARGENT GLOBAL CLIMATE CHANGE RESEARCHER Ot M51.36 01/21/2016 NEGAR JURADO MD Ot F17.210 01/21/2016 NEGAR JURADO MD Ot N13.6 01/24/2016 KISHORE SARGENT GLOBAL CLIMATE CHANGE RESEARCHER Ot M51.36 03/12/2016 GEE CAPONE APRN Ot E11.9 TYPE 2 DIABETES MELLITUS WITHOUT COMPLIC 03/12/2016 GEE CAPONE APRN Ot G89.29 OTHER CHRONIC PAIN 03/12/2016 GEE CAPONE APRN Ot M54.16 RADICULOPATHY, LUMBAR REGION 03/12/2016 GEE CAPONE APRN Ot Z79.891 [facility] (CURRENT) USE OF OPIATE ANALGE 03/12/2016 SARGENTKISHORE GLOBAL CLIMATE CHANGE RESEARCHER Ot M51.36 03/12/2016 RUSTY ALFONSO, SAGRARIO Donnelly (U) Ot Z02.71 03/12/2016 SARGENTKISHORE MCCORMACK GLOBAL CLIMATE CHANGE RESEARCHER Ot M51.36 03/13/2016 GEE CAPONE APRN Ot E11.9 TYPE 2 DIABETES MELLITUS WITHOUT COMPLIC 03/13/2016 GEE CAPONE APRN Ot G89.29 OTHER CHRONIC PAIN 03/13/2016 GEE CAPONE APRN Ot M54.16 RADICULOPATHY, LUMBAR REGION 03/13/2016 GEE CAPONE APRN Ot Z79.891 [facility] (CURRENT) USE OF OPIATE ANALGE 03/29/2016 Ot 571.8 03/29/2016 Ot 592.0 03/29/2016 Ot 592.1 03/29/2016 Ot 789.00 04/06/2016 AMBROSE WELLINGTON DO Ot Z53.21 PROC/TRTMT NOT CRD OUT D/T PT LV BEF SEE 04/29/2016 Ot 571.8 04/29/2016 Ot 592.0 04/29/2016 Ot 592.1 04/29/2016 Ot 789.00 05/06/2016 AMBROSE WELLINGTON DO Ot Z53.21 PROC/TRTMT NOT CRD OUT D/T PT LV BEF SEE 01/27/2017 Ot 571.8 01/27/2017 Ot 592.0 01/27/2017 Ot 592.1 01/27/2017 Ot 789.00 04/29/2017 Ot 571.8 04/29/2017 Ot 592.0 04/29/2017 Ot 592.1 04/29/2017 Ot 789.00 Procedures Code Description Performed By Performed On 56.31 12/13/2009 59.8 12/13/2009 Results Encounters ACCT No. Visit Date/Time Discharge Status Pt. Type Provider Facility Loc./Unit Complaint [id number] 04/03/2016 22:00:00 2015 22:01:00 DIS Emergency AMBROSE WELLINGTON DO [facility] ER [id number] 03/12/2016 14:07:00 2015 15:37:00 DIS Emergency CAPONEGEE SENIOR RECEPTIONIST [facility] ER [id number] 01/20/2016 23:30:00 2015 05:21:00 DIS Inpatient ADRIEN ALFONSO, NEGRA Montesinos [facility] 4TH [id number] 12/31/2015 14:21:00 2015 15:57:00 DIS Outpatient CURLY ALFONSO, VERONICA Cannon [facility] REHAB [id number] 10/09/2015 16:33:00 2014 23:59:59 CLS Outpatient KISHORE SARGENT [facility] RAD [id number] 10/02/2015 13:40:00 2014 23:59:59 CLS Outpatient RUSTY ALFONSO, SAGRARIO Donnelly (DDU) [facility] RAD [id number] 01/06/2016 15:26:00 ACT Outpatient KISHORE SARGENT [facility] RAD [id number] 10/02/2015 13:39:00 Document Registration [id number] 10/02/2015 13:39:00 Document Registration [id number] 01/19/2009 02:45:00 Document Registration
--- NOTE | 2017-07-15 13:21 | ED Back Pain ---
General Chief Complaint: Back Problems Stated Complaint: FALL LOWER BACK PAIN Nursing Triage Note: AMB TO ROOM REPORTS SLIPPED AND FELL INTO SITTING POSITOIN TODAY. C/O LOW BACK PAIN. PATIENT TEXTING WHILE BEING TRIAGED. WHEN ASKED IF TAKEN ANY OTC PAIN LOOKED UP FROM PHONE TO REPORT IT WILL NOT HELP. Nursing Sepsis Screen: No Definite Risk Source of Information: Patient Exam Limitations: No Limitations History of Present Illness Time Seen by Provider: 13:20 Initial Comments To ER with reports of midline low back pain. This began this morning after she slipped and fell walking up her wheelchair ramp at home. She landed directly on her buttocks. She does not have any radiating or radicular type pain. Location: Lumbar Spine, Paraspinous Muscles Timing/Duration: 4-6 Hours Severity: Moderate Pain/Injury Location: Back Associated Symptoms: lower back pain Allergies and Home Medications Allergies Coded Allergies: No Known Drug Allergies (Verified , 10/31/07) Uncoded Allergies: NKDA (Allergy, Mild, 04/04/09) Home Medications Alprazolam 1 Mg Tablet, (Reported) Atorvastatin Calcium 10 Mg Tablet, (Reported) Desmopressin Acetate 0.1 Mg Tablet, (Reported) Hydrocodone Bit/Acetaminophen 1 Ea Tablet, (Reported) Ipratropium/Albuterol Sulfate 14.7 Gm Aer.w.adap, (Reported) Lansoprazole 30 Mg Capsule., (Reported) Montelukast Sodium 10 Mg Tablet, (Reported) Naproxen 500 Mg Tablet, 500 MG PO BID, #20 Prescribed by: GEE CAPONE on 03/12/16 1446 Tramadol Hcl 50 Mg Tab, 100 MG PO Q6H PRN, #20 Ref 0 Prescribed by: TATI MYERS on 03/22/10 1000 [Celebrex] , (Reported) Constitutional: see HPI EENTM: see HPI Respiratory: no symptoms reported Genitourinary: no symptoms reported Musculoskeletal: see HPI, back pain Skin: no symptoms reported Psychiatric/Neurological: No Symptoms Reported Past Tusmvoa-Unffjv-Yuzlci Hx Patient Social History Alcohol Use: Denies Use Recreational Drug Use: No Smoking Status: Never a Smoker Recent Foreign Travel: No Contact w/Someone Who Travel: No Recent Infectious Disease Expo: No Recent Hopitalizations: Yes Surgeries HX Surgeries: Yes (LITHOTRIPSY) Surgeries: Section, Gallbladder, Tonsillectomy Respiratory Hx Respiratory Disorders: Yes Respiratory Disorders: Asthma Cardiovascular Hx Cardiac Disorders: No Cardiac Disorders: High Cholesterol Neurological Hx Neurological Disorders: No Reproductive System Hx Reproductive Disorders: No Genitourinary Hx Genitourinary Disorders: Yes (stones removed from bladder 08/09/07) Genitourinary Disorders: Kidney Stones Gastrointestinal Hx Gastrointestinal Disorders: Yes Gastrointestinal Disorders: Gastroesophageal Reflux Musculoskeletal Hx Musculoskeletal Disorders: Yes Musculoskeletal Disorders: Degenerate Disk Disease Endocrine Hx Endocrine Disorders: Yes Endocrine Disorders: Hypothyroidsim, Diabetes, Non-Insulin dep HEENT HX ENT Disorders: No Cancer Hx Cancer: No Psychosocial Hx Psychiatric Problems: Yes Behavioral Health Disorders: Sleep Difficulties, Anxiety Integumentary HX Skin/Integumentary Disorder: No Blood Transfusions Hx Blood Disorders: No Physical Exam Vital Signs Vital Sign - Last 12Hours 07/15/17 12:56 Temp 98.0 Pulse 92 Resp 18 B/P (MAP) 122/90 Capillary Refill : Less Than 3 Seconds General Appearance: No Apparent Distress, WD/WN, Obese HEENT: PERRL/EOMI, TMs Normal Neck: Full Range of Motion, Normal Inspection Cardiovascular: Regular Rate, Rhythm, Normal Peripheral Pulses Respiratory: No Accessory Muscle Use, No Respiratory Distress Gastrointestinal: Normal Bowel Sounds, Non Tender, Soft Neurologic/Psychiatric: Alert, Oriented x3 Skin: Normal Color, Warm/Dry Progress/Results/Core Measures Results/Orders My Orders Orders - GEE CAPONE APRN Ct Lumbar Spine Wo (07/15/17 13:17) Vital Signs/I&O Vital Sign - Last 12Hours 07/15/17 12:56 Temp 98.0 Pulse 92 Resp 18 B/P (MAP) 122/90 Blood Pressure Mean: 101 Departure Communication Progress Notes Patient will be leaving AGAINST MEDICAL ADVICE prior to obtaining a CT scan. Impression Impression: Primary Impression: Left against medical advice Disposition: 07 AGAINST MEDICAL ADVICE Condition: Against Medical Advice Departure-Patient Inst. Referrals: PA BERGERON DO (PCP) Primary Care Physician KISHORE SARGENT (Family) Primary Care Physician GEE CAPONE APRN Jul 15, 2017 13:21
[2017-07-15 13:28] VITALS: BP 122/90
== END 2017-07-15 13:26 | disposition left against medical advice (07) ==
LOC: EDUNIT# 12:11 → ER 12:18
DX: M54.5 Low back pain (principal); E78.00 Pure hypercholesterolemia, unspecified; J45.909 Unspecified asthma, uncomplicated; K21.9 Gastro-esophageal reflux disease without esophagitis; E03.9 Hypothyroidism, unspecified; E11.9 Type 2 diabetes mellitus without complications; F41.9 Anxiety disorder, unspecified; Z87.442 Personal history of urinary calculi; Z86.59 Personal history of other mental and behavioral disorders; Z90.89 Acquired absence of other organs; W01.0XXA Fall on same level from slipping, tripping and stumbling without subsequent striking against object, initial encounter; Y92.009 Unspecified place in unspecified non-institutional (private) residence as the place of occurrence of the external cause
CPT/HCPCS: 99281

== ENCOUNTER 2017-10-19 08:40 | Emergency (ER) | payer SELFPAY ==
[~2017-10-19] VITALS: Ht 160 cm; Wt 99.8 kg
--- OUTSIDE RECORDS SUMMARY | 2017-10-19 08:52 | XMS REPORT | Continuity of Care Document ---
Author Author [facility] Organization [facility] Address Unknown Phone Unavailable Allergies Active Description Code Type Severity Reaction Onset Reported/Identified Relationship to Patient Clinical Status Yes No Known Drug Allergies [id number] Drug Allergy Unknown N/ A 10/31/2007 Yes NKDA NKDA Mild N/A 04/04/2009 Medications Problems Date Dx Coded Attending Type Code Diagnosis Diagnosed By 12/03/2015 KISHORE SARGENT TRANSMISSION ASSEMBLER Ot M51.36 12/03/2015 SAGRARIO OJEDA MD (DDU) Ot Z02.71 01/06/2016 KISHORE SARGENT TRANSMISSION ASSEMBLER Ot M51.36 01/06/2016 SAGRARIO OJEDA MD (DDU) Ot Z02.71 01/06/2016 VERONICA RAWLS MD Ot M54.5 01/14/2016 KISHORE SARGENT TRANSMISSION ASSEMBLER Ot M51.36 01/14/2016 SAGRARIO OJEDA MD (DDU) Ot Z02.71 01/14/2016 KISHORE SARGENT TRANSMISSION ASSEMBLER Ot M51.36 01/14/2016 VERONICA RAWLS MD Ot M54.5 01/14/2016 VERONICA RAWLS MD Ot M54.5 LOW BACK PAIN 01/20/2016 KISHORE SARGENT TRANSMISSION ASSEMBLER Ot M51.36 01/20/2016 SAGRARIO OJEDA MD (DDU) Ot Z02.71 01/20/2016 KISHORE SARGENT TRANSMISSION ASSEMBLER Ot M51.36 01/20/2016 KISHORE SARGENT TRANSMISSION ASSEMBLER Ot M51.36 01/20/2016 SAGRARIO OJEDA MD (DDU) Ot Z02.71 01/20/2016 KISHORE SARGENT TRANSMISSION ASSEMBLER Ot M51.36 01/21/2016 NEGAR JURADO MD Ot F17.210 NICOTINE DEPENDENCE, CIGARETTES, UNCOMPL 01/21/2016 NEGAR JURADO MD Ot N13.2 HYDRONEPHROSIS WITH RENAL AND URETERAL C 01/21/2016 ADRIEN ALFONSO, NEGAR Montesinos Ot N13.6 01/24/2016 ARIE KISHORE A TRANSMISSION ASSEMBLER Ot M51.36 03/12/2016 GEE CAPONE APRN Ot E11.9 TYPE 2 DIABETES MELLITUS WITHOUT COMPLIC 03/12/2016 GEE CAPONE APRN Ot G89.29 OTHER CHRONIC PAIN 03/12/2016 GEE CAPONE APRN Ot M54.16 RADICULOPATHY, LUMBAR REGION 03/12/2016 GEE CAPONE APRN Ot Z79.891 LONGTERM (CURRENT) USE OF OPIATE ANALGE 03/12/2016 KISHORE SARGENT TRANSMISSION ASSEMBLER Ot M51.36 03/12/2016 RUSTY ALFONSO, SAGRARIO Donnelly (U) Ot Z02.71 03/12/2016 KISHORE SARGENT TRANSMISSION ASSEMBLER Ot M51.36 03/13/2016 GEE CAPONE APRN Ot E11.9 TYPE 2 DIABETES MELLITUS WITHOUT COMPLIC 03/13/2016 GEE CAPONE APRN Ot G89.29 OTHER CHRONIC PAIN 03/13/2016 GEE CAPONE APRN Ot M54.16 RADICULOPATHY, LUMBAR REGION 03/13/2016 GEE CAPONE APRN Ot Z79.891 LONGTERM (CURRENT) USE OF OPIATE ANALGE 03/29/2016 Ot 571.8 03/29/2016 Ot 592.0 03/29/2016 Ot 592.1 03/29/2016 Ot 789.00 04/03/2016 AMBROSE WELLINGTON DO Ot Z53.21 PROC/TRTMT NOT CRD OUT D/T PT LV BEF SEE 04/06/2016 AMBROSE WELLINGTON DO Ot Z53.21 PROC/TRTMT [...] 592.0 04/29/2017 Ot 592.1 04/29/2017 Ot 789.00 07/15/2017 SARGENTDONNIE MCCORMACKALBINA Montesinos [facility] Ot M51.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 DISC DEGENERATION, 07/15/2017 SAGRARIO OJEDA MD (U) Ot Z02.71 ENCOUNTER FOR DISABILITY DETERMINATION 07/15/2017 SARGENT KISHORE Montesinos [facility] Ot M51.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 DISC DEGENERATION, 07/15/2017 GEE CAPONE APRN Ot E03.9 HYPOTHYROIDISM, UNSPECIFIED 07/15/2017 GEE CAPONE APRN Ot E11.9 TYPE 2 DIABETES MELLITUS WITHOUT COMPLIC 07/15/2017 GEE CAPONE APRN Ot E78.00 PURE HYPERCHOLESTEROLEMIA, UNSPECIFIED 07/15/2017 GEE CAPONE APRN Ot F41.9 ANXIETY DISORDER, UNSPECIFIED 07/15/2017 GEE CAPONE APRN Ot J45.909 UNSPECIFIED ASTHMA, UNCOMPLICATED 07/15/2017 GEE CAPONE APRN Ot K21.9 GASTRO-ESOPHAGEAL REFLUX DISEASE WITHOUT 07/15/2017 GEE CAPONE APRN Ot M54.5 LOW BACK PAIN 07/15/2017 GEE CAPONE APRN Ot W01.0XXA FALL SAME LEV FROM SLIP/TRIP W/O STRIKE 07/15/2017 GEE CAPONE APRN Ot Y92.[address] [facility] [address] IN [facility] NON-INSTITUT ( PRIVATE 07/15/2017 GEE CAPONE APRN Ot Z86.59 PERSONAL HISTORY OF OTHER MENTAL AND BEH 07/15/2017 GEE CAPONE APRN Ot Z87.442 PERSONAL HISTORY OF URINARY CALCULI 07/15/2017 GEE CAPONE APRN Ot Z90.89 ACQUIRED ABSENCE OF OTHER ORGANS 07/15/2017 KISHORE SARGENT [facility] Ot M51.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 DISC DEGENERATION, 07/15/2017 SAGRARIO OJEDA MD (U) Ot Z02.71 ENCOUNTER FOR DISABILITY DETERMINATION 07/15/2017 KISHORE SARGENT [facility] Ot M51.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 DISC DEGENERATION, Procedures Code Description Performed By Performed On 56.31 URETEROSCOPY 59.8 URETERAL CATHETERIZATION 12/13/2009 Results Encounters ACCT No. Visit Date/Time Discharge Status Pt. Type Provider Facility Loc./Unit Complaint [id number] 07/15/2017 12:18:00 2016 13:26:00 DIS Emergency GEE CAPONE RUFFLING MACHINE OPERATOR [facility] ER FALL LOWER BACK PAIN [id number] 04/03/2016 22:00:00 2015 22:01:00 DIS Emergency ELIZ DO, AMBROSE K [facility] ER LACERATION [id number] 03/12/2016 14:07:00 2015 15:37:00 DIS Emergency GEE CAPONE RUFFLING MACHINE OPERATOR [facility] ER [id number] 01/20/2016 23:30:00 2015 05:21:00 DIS Inpatient ADRIEN ALFONSO, NEGAR Montesinos [facility] 4TH UTI,LEUKOCYTOSIS,LEFT URETERAL STONE [id number] 12/31/2015 14:21:00 2015 15:57:00 DIS Outpatient VERONICA RAWLS MD [facility] REHAB [place] [id number] 01/06/2016 15:26:00 2015 23:59:59 CLS Outpatient KISHORE SARGENT TRANSMISSION ASSEMBLER [facility] RAD DEGENERATIVE DISC DISEASE [id number] 10/09/2015 16:33:00 2014 23:59:59 CLS Outpatient KISHORE SARGENT TRANSMISSION ASSEMBLER [facility] RAD DDD [id number] 10/02/2015 13:40:00 2014 23:59:59 CLS Outpatient RUSTY ALFONSO, SAGRARIO Donnelly (DDU) [facility] RAD DDS [id number] 10/02/2015 13:39:00 Document Registration [id number] 10/02/2015 13:39:00 Document Registration [id number] 01/19/2009 02:45:00 Document Registration
[2017-10-19] MEDS ORDERED: RT-ALBUTEROL/IPRATROPIUM 3 ML (DUONEB) VIAL INH ONE (09:45)
--- NOTE | 2017-10-19 10:24 | Diagnostic Imaging Report ---
PA and lateral views of the chest Indication: Cough Comparison: 01/08/2010 Findings: The lungs are clear. The heart size is normal. There is no effusion or pneumothorax The mediastinum and lucy appear unremarkable. Impression: Unremarkable study. Dictated by: Dictated on workstation # [id number]
--- NOTE | 2017-10-19 10:58 | ED General ---
General Chief Complaint: Cough/Cold/Flu Symptoms Stated Complaint: COUGH/CHEST CONGESTION Nursing Triage Note: PT CO OF COLD AND COUGH SX FOR 1 MONTH, PT STATES WAS ON PREDNISONE,TESSLON PEARLS, AND LEVOFLOXIN 2 WEEKS AGO AND NO IMPROVEMENT, PT SMOKES 1P/DAY. Nursing Sepsis Screen: No Definite Risk Source of Information: Patient Exam Limitations: No Limitations History of Present Illness Time Seen by Provider: 09:26 Initial Comments This 47-year-old woman presents to emergency room with persistent coughing and wheezing. She has been ill for about one month. She finished a round of Levaquin, prednisone, and Tessalon perles about 10 days ago. She has been using an albuterol inhaler which provides her only temporary relief. The above treatment did not resolve her illness. She reports cough and shortness of air worsened after being out in the wind yesterday. She has a history of asthma. She continues to smoke. Allergies and Home Medications Allergies Coded Allergies: No Known Drug Allergies (Verified , 10/31/07) Uncoded Allergies: NKDA (Allergy, Mild, 04/04/09) Home Medications Albuterol Sulfate 2.5 Mg/3 Ml Vial.neb, 2.5 MG IH Q4H, #30 Prescribed by: MISSY LUTHER on 10/19/17 1101 Ipratropium/Albuterol Sulfate 14.7 Gm Aer.w.adap, (Reported) Prednisone 10 Mg Tab, 10 MG PO UD, #20 Use 4 tablets daily for 2 days, then 3 tabs daily for 2 days, then 2 tabs daily for 2 days, then one tab daily for 2 days Prescribed by: MISSY LUTHER on 10/19/17 1101 Constitutional: no symptoms reported EENTM: no symptoms reported Respiratory: see HPI Cardiovascular: no symptoms reported Gastrointestinal: no symptoms reported Genitourinary: no symptoms reported : No Musculoskeletal: no symptoms reported Skin: no symptoms reported Psychiatric/Neurological: No Symptoms Reported Hematologic/Lymphatic: No Symptoms Reported Past Kvinldz-Grbdcc-Qqksqk Hx Patient Social History Alcohol Use: Denies Use Recreational Drug Use: No Smoking Status: Current Someday Smoker Type Used: Cigarettes Recent Foreign Travel: No Contact w/Someone Who Travel: No Recent Infectious Disease Expo: No Recent Hopitalizations: No Physical Abuse: No Sexual Abuse: No Surgeries History of Surgeries: Yes (LITHOTRIPSY) Surgeries: Section, Gallbladder, Tonsillectomy Respiratory History of Respiratory Disorde: Yes Respiratory Disorders: Asthma Cardiovascular History of Cardiac Disorders: No Cardiac Disorders: High Cholesterol Neurological History of Neurological Disord: No Reproductive System Hx Reproductive Disorders: No Genitourinary History of Genitourinary Disor: Yes Genitourinary Disorders: Kidney Stones Gastrointestinal History of Gastrointestinal Di: Yes Gastrointestinal Disorders: Gastroesophageal Reflux Musculoskeletal History of Musculoskeletal Dis: Yes Musculoskeletal Disorders: Degenerate Disk Disease Endocrine History of Endocrine Disorders: Yes Endocrine Disorders: Hypothyroidsim, Diabetes, Non-Insulin dep Cancer History of Cancer: No Psychosocial History of Psychiatric Problem: Yes Behavioral Health Disorders: Sleep Difficulties, Anxiety Suicide Risk Score: 0 Integumentary History of Skin or Integumenta: No Blood Transfusions History of Blood Disorders: No Physical Exam Vital Signs Vital Sign - Last 12Hours 10/19/17 10/19/17 08:55 09:50 Temp 98.2 Pulse 102 Resp 18 B/P (MAP) 149/80 Pulse Ox 98 O2 Delivery Room Air Capillary Refill : Less Than 3 Seconds General Appearance: No Apparent Distress, WD/WN HEENT: PERRL/EOMI, Normal ENT Inspection, Pharynx Normal Neck: Normal Inspection Respiratory: No Accessory Muscle Use, No Respiratory Distress, Wheezing Cardiovascular: Regular Rate, Rhythm, No Edema, No Murmur Gastrointestinal: Non Tender, Soft Extremity: Normal Inspection, No Pedal Edema Neurologic/Psychiatric: Alert, Oriented x3, No Motor/Sensory Deficits, Normal Mood/Affect Skin: Normal Color, Warm/Dry Progress/Results/Core Measures Suspected Sepsis Recent Fever Within 48 Hours: No Infection Criteria Present: None New/Unexplained Altered Menta: No Sepsis Screen: No Definite Risk Sepsis Diagnosis: SIRS Temperature:98.2 Pulse: 102 Respiratory Rate: 18 Blood Pressure 149 /80 Mean: 103 Results/Orders My Orders Medications Given in ED Vital Signs/I&O Capillary Refill : Less Than 3 Seconds Blood Pressure Mean: 103 Progress Note : Progress Note Patient was given a DuoNeb treatment which didn't improve her symptoms. X-ray was negative for pneumonia. She was given an 8 day steroid taper and prescribed albuterol for her nebulizer machine. I strongly encouraged her to work on smoking cessation. Diagnostic Imaging Diagonstic Imaging: Xray Plain Films/CT/US/NM/MRI: chest Comments Two-view chest x-ray viewed by me and report reviewed. See report below: NAME: LUCRECIA LUQUE [facility] REC#: [id number] PT STATUS: REG ER : 1970 PHYSICIAN: MISSY WILKERSON MD ADMIT DATE: 10/19/17/ER Signed Date of Exam:10/19/17 CHEST PA/LAT (2 VIEW) PA and lateral views of the chest Indication: Cough Comparison: 01/08/2010 Findings: The lungs are clear. The heart size is normal. There is no effusion or pneumothorax The mediastinum and lucy appear unremarkable. Impression: Unremarkable study. Dictated by: Dictated on workstation # [id number] Dict: 10/19/17 1021 Trans: 10/19/17 1022 [id number] Interpreted by: DAT CASTELLANOS MD Electronically signed by: DAT CASTELLANOS MD 10/19/17 1022 Departure Impression Impression: Primary Impression: Acute bronchitis Qualified Codes: J20.9 - Acute bronchitis, unspecified Additional Impressions: Asthma exacerbation Qualified Codes: J45.901 - Unspecified asthma with (acute) exacerbation Smoking Disposition: HOME, SELF-CARE Condition: Improved Departure-Patient Inst. Decision time for Depature: 10:58 Referrals: [facility] (PCP/Family) Primary Care Physician Patient Instructions: Acute Bronchitis, Adult (DC), Quitting Smoking Add. Discharge Instructions: Work toward quitting smoking. Reduce your smoking is much as possible. You may use cacy-imp-vsvhrar nicotine replacement such as gum, patches, or lozenges. Do not use gvdb-tgb-vpsnufr inhaled nicotine products. Use the steroid taper as prescribed. Follow-up with your primary care provider as soon as possible. Return to emergency room if symptoms worsen. All discharge instructions reviewed with patient and/or family. Voiced understanding. Scripts Albuterol Sulfate (Albuterol Sulfate) 2.5 Mg/3 Ml Vial.neb 2.5 MG IH Q4H, #30 EA Prov: MISSY WILKERSON MD 10/19/17 Prednisone (Prednisone) 10 Mg Tab 10 MG PO UD, #20 TAB Use 4 tablets daily for 2 days, then 3 tabs daily for 2 days, then 2 tabs daily for 2 days, then one tab daily for 2 days Prov: MISSY WILKERSON MD 10/19/17 MISSY WILKERSON MD Oct 19, 2017 10:58
[2017-10-19] MEDS ORDERED: PRD10T PO (11:01)
[2017-10-19] MEDS ORDERED: ALBU2.5V4 IH (11:01)
[2017-10-19 11:08] VITALS: BP 149/80
== END 2017-10-19 11:08 | disposition home or self-care (01) ==
LOC: EDUNIT# 08:40 → ER 08:44
DX: J20.9 Acute bronchitis, unspecified (principal); J45.901 Unspecified asthma with (acute) exacerbation; E78.00 Pure hypercholesterolemia, unspecified; K21.9 Gastro-esophageal reflux disease without esophagitis; E03.9 Hypothyroidism, unspecified; E11.9 Type 2 diabetes mellitus without complications; F41.9 Anxiety disorder, unspecified; F17.210 Nicotine dependence, cigarettes, uncomplicated; Z90.89 Acquired absence of other organs; Z87.442 Personal history of urinary calculi; Z87.59 Personal history of other complications of pregnancy, childbirth and the puerperium
CPT/HCPCS: 71020; 94640; 99282

== ENCOUNTER 2017-12-19 19:10 | Emergency (ER) | payer SELFPAY ==
[~2017-12-19] VITALS: Ht 160 cm; Wt 90.7 kg
[~2017-12-19 19:10] MED LIST changes: +ALBU2.5V4 IH; +NAPR-1071 PO; -NAPR500T PO; +PRD10T PO
--- OUTSIDE RECORDS SUMMARY | 2017-12-19 19:18 | XMS REPORT | Continuity of Care Document ---
Author Author [facility] Organization [facility] Address Unknown Phone Unavailable Allergies Active Description Code Type Severity Reaction Onset Reported/Identified Relationship to Patient Clinical Status Yes No Known Drug Allergies [id number] Drug Allergy Unknown N/A 10/31/2007 Yes NKDA NKDA Mild N/ A 04/04/2009 Medications There is no data. Problems Date Dx Coded Attending Type Code Diagnosis Diagnosed By 12/03/2015 KISHORE SARGENT BLINDSTITCH LAPEL PADDER Ot M51.36 12/03/2015 SAGRARIO OJEDA MD (DDU) Ot Z02.71 01/06/2016 KISHORE SARGENT BLINDSTITCH LAPEL PADDER Ot M51.36 01/06/2016 SAGRARIO OJEDA MD (DDU) Ot Z02.71 01/06/2016 VERONICA RAWLS MD Ot M54.5 01/14/2016 KISHORE SARGENT BLINDSTITCH LAPEL PADDER Ot M51.36 01/14/2016 SAGRARIO OJEDA MD (DDU) Ot Z02.71 01/14/2016 KISHORE SARGENT BLINDSTITCH LAPEL PADDER Ot M51.36 01/14/2016 VERONICA RAWLS MD Ot M54.5 01/14/2016 VERONICA RAWLS MD Ot M54.5 LOW BACK PAIN 01/20/2016 KISHORE SARGENT BLINDSTITCH LAPEL PADDER Ot M51.36 01/20/2016 SAGRARIO OJEDA MD (DDU) Ot Z02.71 01/20/2016 KISHORE SARGENT BLINDSTITCH LAPEL PADDER Ot M51.36 01/20/2016 KISHORE SARGENT BLINDSTITCH LAPEL PADDER Ot M51.36 01/20/2016 SAGRARIO OJEDA MD (DDU) Ot Z02.71 01/20/2016 KISHORE SARGENT BLINDSTITCH LAPEL PADDER Ot M51.36 01/21/2016 NEGAR JURADO MD Ot F17.210 NICOTINE DEPENDENCE, CIGARETTES, UNCOMPL 01/21/2016 NEGAR JURADO MD Ot N13.2 HYDRONEPHROSIS WITH RENAL AND URETERAL C 01/21/2016 ADRIEN ALFONSO, NEGAR Montesinos Ot N13.6 01/24/2016 KISHORE SARGENT BLINDSTITCH LAPEL PADDER Ot M51.36 03/12/2016 GEE CAPONE APRN Ot E11.9 TYPE 2 DIABETES MELLITUS WITHOUT COMPLIC 03/12/2016 GEE CAPONE MATHEMATICIAN Ot G89.29 OTHER CHRONIC PAIN 03/12/2016 GEE CAPONE MATHEMATICIAN Ot M54.16 RADICULOPATHY, LUMBAR REGION 03/12/2016 GEE CAPONE APRN Ot Z79.891 [employer] (CURRENT) USE OF OPIATE ANALGE 03/12/2016 KISHORE SARGENT BLINDSTITCH LAPEL PADDER Ot M51.36 03/12/2016 RUSTY ALFONSO, SAGRARIO Donnelly (U) Ot Z02.71 03/12/2016 KISHORE SARGENT BLINDSTITCH LAPEL PADDER Ot M51.36 03/13/2016 GEE CAPONE APRN Ot E11.9 TYPE 2 DIABETES MELLITUS WITHOUT COMPLIC 03/13/2016 GEE CAPONE APRN Ot G89.29 OTHER CHRONIC PAIN 03/13/2016 GEE CAPONE APRN Ot M54.16 RADICULOPATHY, LUMBAR REGION 03/13/2016 GEE CAPONE APRN Ot Z79.891 C[employer]ED [employer] MAK[employer] (CURRENT) USE OF OPIATE ANALGE 03/29/2016 Ot [...] 04/29/2017 Ot 592.1 04/29/2017 Ot 789.00 07/15/2017 KISHORE SARGENT BLINDSTITCH LAPEL PADDER Ot M51.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 DISC DEGENERATION, 07/15/2017 SAGRARIO OJEDA MD (U) Ot Z02.71 ENCOUNTER FOR DISABILITY DETERMINATION 07/15/2017 KISHORE SARGENT BLINDSTITCH LAPEL PADDER Ot M51.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 DISC DEGENERATION, 07/15/2017 GEE CAPONE APRN Ot E03.9 HYPOTHYROIDISM, UNSPECIFIED 07/15/2017 GEE CAPONE MATHEMATICIAN Ot E11.9 TYPE 2 DIABETES MELLITUS WITHOUT [...] STRIKE 07/15/2017 GEE CAPONE APRN Ot Y92.[address] [facility] [address] IN [facility] NON-INSTITUT (PRIVATE 07/15/2017 GEE CAPONE APRN Ot Z86.59 PERSONAL HISTORY OF OTHER MENTAL AND BEH 07/15/2017 GEE CAPONE APRN Ot Z87.442 PERSONAL HISTORY OF URINARY CALCULI 07/15/2017 GEE CAPNOE APRN Ot Z90.89 ACQUIRED ABSENCE OF OTHER ORGANS 07/15/2017 KISHORE SARGENT BLINDSTITCH LAPEL PADDER Ot M51.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 DISC DEGENERATION, 07/15/2017 SAGRARIO OJEDA MD (DDU) Ot Z02.71 ENCOUNTER FOR DISABILITY DETERMINATION 07/15/2017 KISHORE SARGENTP Ot M51.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 DISC DEGENERATION, 10/19/2017 KISHORE SARGENT BLINDSTITCH LAPEL PADDER Ot M51.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 DISC DEGENERATION, 10/19/2017 RUSTY ALFONSO, SAGRARIO Donnelly ([facility]) Ot Z02.71 ENCOUNTER FOR DISABILITY DETERMINATION 10/19/2017 KISHORE SARGENT BLINDSTITCH LAPEL PADDER Ot M51.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 DISC DEGENERATION, Procedures Code Description Performed By Performed On 56.31 URETEROSCOPY 12/13/2009 59.8 URETERAL CATHETERIZATION 12/13/2009 Results There is no data. Encounters ACCT No. Visit Date/Time Discharge Status Pt. Type Provider Facility Loc./Unit Complaint [id number] 10/19/2017 08:44:00 10/19/2017 11:08:00 DIS Emergency ROCK ALFONSO, MISSY Arroyo [facility] ER COUGH/CHEST CONGESTION [id number] 07/15/2017 12:18:00 07/15/2017 13:26:00 DIS Emergency GEE CAPONE APRN [facility] ER FALL LOWER BACK PAIN [id number] 04/03/2016 22:00:00 04/03/2016 22:01:00 DIS Emergency AMBROSE WELLINGTON DO K [facility] ER LACERATION [id number] 03/12/2016 14:07:00 03/12/2016 15:37:00 DIS Emergency GEE CAPONE APRN [facility] ER [id number] 01/20/2016 23:30:00 01/21/2016 05:21:00 DIS Inpatient ADRIEN ALFONSO, NEGAR Montesinos [facility] 4TH UTI,LEUKOCYTOSIS,LEFT URETERAL STONE [id number] 12/31/2015 14:21:00 01/14/2016 15:57:00 DIS Outpatient VERONICA RAWLS MD [facility] REHAB [place] [id number] 01/06/2016 15:26:00 01/06/2016 23:59:59 CLS Outpatient KISHORE SARGENT [facility] RAD DEGENERATIVE DISC DISEASE [id number] 10/09/2015 16:33:00 10/09/2015 23:59:59 CLS Outpatient KISHORE SARGENT [facility] RAD DDD [id number] 10/02/2015 13:40:00 10/02/2015 23:59:59 CLS Outpatient RUSTY ALFONSO, SAGRARIO Donnelly (DDU) [facility] DDS [id number] 10/02/2015 13:39:00 Document Registration [id number] 10/02/2015 13:39:00 Document Registration [id number] 01/19/2009 02:45:00 Document Registration
--- OUTSIDE RECORDS SUMMARY | 2017-12-19 19:18 | XMS REPORT | Clinical Summary ---
Author Author [facility] Address Unknown Phone Unavailable Support Name Relationship Address Phone , Contact,No ECON Unknown Allergies Not on File Current Medications Not on file Active Problems Not on file Social History Tobacco Use Types Packs/Day Years Used Date Never Assessed Sex Assigned at Date Recorded Not on file Plan of Treatment Health Maintenance Due Date Last Done Comments Varicella Vaccines (1 of 1984 2 - 2 Dose Adolescent Series) DTaP,Tdap,and Td Vaccines 1990 (1 - Tdap) CERVICAL CANCER SCREENING 1992 Influenza Vaccine (#1) 2017 Results Not on filefrom Last 3 Months
[2017-12-19] MEDS ORDERED: NS IV 1000 ML 1,000 ML IV ONE (20:42)
[2017-12-19] MEDS ORDERED: ONDANSETRON 4 MG/2 ML (SDV) Z0FRAN IVP ONE (20:45)
[2017-12-19] MEDS ORDERED: HYOSCYAMINE 0.125 MG (LEVSIN) TAB SL ONE (20:45)
[2017-12-19 21:02] LABS: BASOPHILS # (AUTO) 0.1 10^3/uL (0.0-0.1); BASOPHILS % (AUTO) 0 % (0-10); EOSINOPHILS # (AUTO) 0.5 10^3/uL (0.0-0.3); EOSINOPHILS % (AUTO) 3 % (0-10); HEMATOCRIT 43 % (35-52); HEMOGLOBIN 14.2 G/DL (11.5-16.0); LYMPHOCYTES % (AUTO) 5 % (12-44); MEAN CORPUSCULAR HEMOGLOBIN 26 PG (25-34); MEAN CORPUSCULAR HGB CONC 33 G/DL (32-36); MEAN CORPUSCULAR VOLUME 78 FL (80-99); MEAN PLATELET VOLUME 10.5 FL (7.4-10.4); MONOCYTES # (AUTO) 1.2 X 10^3 (0.0-1.0); MONOCYTES % (AUTO) 7 % (0-12); NEUTROPHILS # (AUTO) 15.7 X 10^3 (1.8-7.8); NEUTROPHILS % (AUTO) 85 % (42-75); PLATELET COUNT 521 10^3/uL (130-400); RED BLOOD COUNT 5.53 10^6/uL (4.35-5.85); RED CELL DISTRIBUTION WIDTH 17.4 % (10.0-14.5); WHITE BLOOD COUNT 18.4 10^3/uL (4.3-11.0)
[2017-12-19] MEDS ORDERED: FAMOTIDINE 20MG/2ML IV (PEPCID) IVP ONE (21:15)
[2017-12-19 21:18] LABS: BAND NEUTROPHILS 0 %; BASOPHILS % (MANUAL) 1 %; EOSINOPHILS % (MANUAL) 3 %; LYMPHOCYTES % (MANUAL) 6 %; MONOCYTES % (MANUAL) 5 %; NEUTROPHILS % (MANUAL) 85 %; RBC MORPH NORMAL
[2017-12-19 21:24] LABS: ALANINE AMINOTRANSFERASE 22 U/L (0-55); ALBUMIN 3.8 GM/DL (3.2-4.5); ALKALINE PHOSPHATASE 102 U/L (40-136); BILIRUBIN,TOTAL 0.5 MG/DL (0.1-1.0); BUN/CREATININE RATIO 14; CALCIUM 9.6 MG/DL (8.5-10.1); CARBON DIOXIDE 21 MMOL/L (21-32); CHLORIDE 104 MMOL/L (98-107); GFR ESTIMATED > 60; GLUCOSE 147 MG/DL (70-105); SODIUM 136 MMOL/L (135-145); TOTAL PROTEIN 7.2 GM/DL (6.4-8.2)
--- NOTE | 2017-12-19 21:41 | ED GI ---
General Chief Complaint: Abdominal/GI Problems Stated Complaint: CRAMPING SOA DIARRHEA Nursing Triage Note: Pt c/o diffuse abd cramping and diarrhea that started this morning. pt also c/o feeling flushed and sweaty. Sepsis Screen: No Definite Risk Source of Information: Patient Exam Limitations: No Limitations Allergies and Home Medications Allergies Coded Allergies: No Known Drug Allergies (Verified , 10/31/07) Uncoded Allergies: NKDA (Allergy, Mild, 04/04/09) Home Medications Albuterol Sulfate 2.5 Mg/3 Ml Vial.neb, 2.5 MG IH Q4H, #30 Prescribed by: MISSY LUTHER on 10/19/17 1101 Ipratropium/Albuterol Sulfate 14.7 Gm Aer.w.adap, (Reported) Prednisone 10 Mg Tab, 10 MG PO UD, #20 Use 4 tablets daily for 2 days, then 3 tabs daily for 2 days, then 2 tabs daily for 2 days, then one tab daily for 2 days Prescribed by: MISSY LUTHER on 10/19/17 1101 Past Ujmhafy-Mnizqx-Ltbdzs Hx Patient Social History Alcohol Use: Denies Use Recreational Drug Use: No Smoking Status: Current Everyday Smoker Type Used: Cigarettes Recent Foreign Travel: No Contact w/Someone Who Travel: No Recent Infectious Disease Expo: No Recent Hopitalizations: No Seasonal Allergies Seasonal Allergies: No Surgeries History of Surgeries: Yes (LITHOTRIPSY) Surgeries: Section, Gallbladder, Tonsillectomy Respiratory History of Respiratory Disorde: Yes Respiratory Disorders: Asthma Cardiovascular History of Cardiac Disorders: No Cardiac Disorders: High Cholesterol Neurological History of Neurological Disord: No Reproductive System Hx Reproductive Disorders: No Genitourinary History of Genitourinary Disor: Yes Genitourinary Disorders: Kidney Stones Gastrointestinal History of Gastrointestinal Di: Yes Gastrointestinal Disorders: Gastroesophageal Reflux Musculoskeletal History of Musculoskeletal Dis: Yes Musculoskeletal Disorders: Degenerate Disk Disease Endocrine History of Endocrine Disorders: Yes Endocrine Disorders: Hypothyroidsim, Diabetes, Non-Insulin dep Cancer History of Cancer: No Psychosocial History of Psychiatric Problem: Yes Behavioral Health Disorders: Sleep Difficulties, Anxiety Integumentary History of Skin or Integumenta: No Blood Transfusions History of Blood Disorders: No Physical Exam Vital Signs VS - Last 72 Hours, by Label 12/19/17 19:41 Temp 97.5 Pulse 85 Resp 18 B/P (MAP) 101/78 (86) Pulse Ox 98 O2 Delivery Room Air Capillary Refill : Less Than 3 Seconds Progress/Results/Core Measures Results/Orders Lab Results Laboratory Tests Test 12/19/17 20:41 Range/Units White Blood Count 18.4 H 4.3-11.0 10^3/uL Red Blood Count 5.53 4.35-5.85 10^6/uL Hemoglobin 14.2 11.5-16.0 G/DL Hematocrit 43 35-52 % Mean Corpuscular Volume 78 L 80-99 FL Mean Corpuscular Hemoglobin 26 25-34 PG Mean Corpuscular Hemoglobin Concent 33 32-36 G/DL Red Cell Distribution Width 17.4 H 10.0-14.5 % Platelet Count 521 H 130-400 10^3/uL Mean Platelet Volume 10.5 H 7.4-10.4 FL Neutrophils (%) (Auto) 85 H 42-75 % Lymphocytes (%) (Auto) 5 L 12-44 % Monocytes (%) (Auto) 7 0-12 % Eosinophils (%) (Auto) 3 0-10 % Basophils (%) (Auto) 0 0-10 % Neutrophils # (Auto) 15.7 H 1.8-7.8 X 10^3 Lymphocytes # (Auto) 1.0 1.0-4.0 X 10^3 Monocytes # (Auto) 1.2 H 0.0-1.0 X 10^3 Eosinophils # (Auto) 0.5 H 0.0-0.3 10^3/uL Basophils # (Auto) 0.1 0.0-0.1 10^3/uL Neutrophils % (Manual) 85 % Lymphocytes % (Manual) 6 % Monocytes % (Manual) 5 % Eosinophils % (Manual) 3 % Basophils % (Manual) 1 % Band Neutrophils 0 % Blood Morphology Comment NORMAL Sodium Level 136 135-145 MMOL/L Potassium Level 4.0 3.6-5.0 MMOL/L Chloride Level 104 98-107 MMOL/L Carbon Dioxide Level 21 21-32 MMOL/L Anion Gap 11 5-14 MMOL/L Blood Urea Nitrogen 11 7-18 MG/DL Creatinine 0.80 0.60-1.30 MG/DL Estimat Glomerular Filtration Rate > 60 BUN/Creatinine Ratio 14 Glucose Level 147 H 70-105 MG/DL Calcium Level 9.6 8.5-10.1 MG/DL Magnesium Level 2.0 1.8-2.4 MG/DL Total Bilirubin 0.5 0.1-1.0 MG/DL Aspartate Amino Transf (AST/SGOT) 14 5-34 U/L Alanine Aminotransferase (ALT/SGPT) 22 0-55 U/L Alkaline Phosphatase 102 40-136 U/L C-Reactive Protein High Sensitivity 2.42 H 0.00-0.50 MG/DL Total Protein 7.2 6.4-8.2 GM/DL Albumin 3.8 3.2-4.5 GM/DL Lipase 10 8-78 U/L Serum Test, Qualitative NEGATIVE NEGATIVE My Orders Orders - MISSY WILKERSON MD Ondansetron Injection (Zofran Injectio (12/19/17 20:45) Hyoscyamine Sl Tablet (Levsin Sl Tablet) (12/19/17 20:45) Saline Lock/Iv-Start (12/19/17 20:42) Ns Iv 1000 Ml (Sodium Chloride 0.9%) (12/19/17 20:42) Cbc With Automated Diff (12/19/17 20:56) Comprehensive Metabolic Panel (12/19/17 20:56) Magnesium (12/19/17 20:56) Famotidine Injection (Pepcid Injection) (12/19/17 21:15) Manual Differential (12/19/17 20:41) Hs C Reactive Protein (12/19/17 21:33) Lipase (12/19/17 21:33) Hcg,Qualitative Serum (12/19/17 21:38) Hepatitis Panel Acute (12/19/17 21:38) Lidocaine 2% Viscous 15 Ml (Xylocaine Vi (12/19/17 21:45) Antacid Suspension (Mylanta Suspension (12/19/17 21:45) Rx-Ondansetron Po (Rx-Zofran Po) (12/19/17 22:30) Rx-Hyoscyamine Tab (Rx-Levsin Sl) (12/19/17 22:30) Medications Given in ED Current Medications Medications Dose Ordered Sig/Luis Route Start Time Stop Time Status Last Admin Dose Admin Al Hydrox/Mg Hydrox/Simethicone 30 ml ONCE ONCE PO 12/19/17 21:45 12/19/17 21:46 DC 12/19/17 21:50 30 ML Famotidine 20 mg ONCE ONCE IVP 12/19/17 21:15 12/19/17 21:16 DC 12/19/17 21:20 20 MG Hyoscyamine Sulfate 0.25 mg ONCE ONCE SL 12/19/17 20:45 12/19/17 20:46 DC 12/19/17 20:54 0.25 MG Lidocaine HCl 15 ml ONCE ONCE PO 12/19/17 21:45 12/19/17 21:46 DC 12/19/17 21:50 15 ML Ondansetron HCl 8 mg ONCE ONCE IVP 12/19/17 20:45 12/19/17 20:46 DC 12/19/17 20:54 8 MG Sodium Chloride 1,000 ml @ 0 mls/hr Q0M ONCE IV 12/19/17 20:42 12/19/17 20:44 DC 12/19/17 20:54 1,000 MLS/HR Vital Signs/I&O Vital Sign - Last 12Hours 12/19/17 19:41 Temp 97.5 Pulse 85 Resp 18 B/P (MAP) 101/78 (86) Pulse Ox 98 O2 Delivery Room Air Blood Pressure Mean: 86 Progress Note : Time: 21:40 Progress Note Patient was treated with IV fluids, Zofran, Levsin, and Pepcid. Cramping and nausea have improved but she still has some pain and tenderness in the epigastric area. GI cocktail will be administered. Patient was found to have leukocytosis but states that this is chronic. She does have risk factors for hepatitis C including tattoos and remote IV drug use but has never been tested. She would like to be tested today. Imaging will be pending response to GI cocktail and results of the lipase and CRP that were added. Departure Impression Impression: Primary Impression: Diarrhea Qualified Codes: R19.7 - Diarrhea, unspecified Additional Impressions: Nausea Epigastric pain Leukocytosis Qualified Codes: D72.829 - Elevated white blood cell count, unspecified Disposition: 01 HOME, SELF-CARE Condition: Improved Departure-Patient Inst. Referrals: [facility] (PCP/Family) Primary Care Physician Patient Instructions: Acute Abdomen (Belly Pain), Adult (DC), Diarrhea in Adolescents and Adults Add. Discharge Instructions: Dissolve Zofran (ondansetron) under the tongue every 4 hours as needed for nausea and vomiting. Dissolve Levsin (hyoscyamine) under the tongue every 4 hours as needed for abdominal cramping and diarrhea. Drink plenty of clear liquids. Gradually advance her diet with small quantities of bland food as tolerated. Avoid milk products until at least 24 hours after diarrhea resolves. Return to care if symptoms worsen. Labs were drawn to evaluate for hepatitis because of your long-term history of high white blood cell count (leukocytosis). Please follow-up with your primary care provider regarding the results in about one week. Use an dfsr-eed-civzwse antacid such as Pepcid (famotidine) or omeprazole for the upper abdominal pain. Continue with antacid medication until the pain resolves. All discharge instructions reviewed with patient and/or family. Voiced understanding. Scripts Hyoscyamine Sulfate (Levsin-Sl) 0.125 Mg Tab.subl 0.125 MG SL Q4H Y for CRAMPS, #10 TAB For bowel cramping and diarrhea Prov: MISSY WILKERSON MD 12/19/17 MISSY WILKERSON MD Dec 19, 2017 21:41
[2017-12-19] MEDS ORDERED: ANTACID SUSP 30 ML UDC (MYLANTA) PO ONE (21:45)
[2017-12-19] MEDS ORDERED: LIDOCAINE 2% VISCOUS 15 ML UDC PO ONE (21:45)
[2017-12-19] MEDS ORDERED: RX-ONDANSETRON 4 MG ODT (ZOFRAN) PPK #4 SL STA (22:30)
[2017-12-19] MEDS ORDERED: RX-HYOSCYAMINE 0.125 MG SL (LEVSIN) PPK#6 SL STA (22:30)
[2017-12-19 22:48] VITALS: BP 139/85
[2017-12-19] MEDS ORDERED: HYOS0.1283 SL (22:50)
[2017-12-21 06:27] LABS: HEPATITIS C ANTIBODY C Non-Reactive (Non-Reactive)
== END 2017-12-19 22:48 | disposition home or self-care (01) ==
LOC: EDUNIT# 19:10 → ER 19:14
DX: R19.7 Diarrhea, unspecified (principal); R10.13 Epigastric pain; R11.0 Nausea; D72.829 Elevated white blood cell count, unspecified; J45.909 Unspecified asthma, uncomplicated; E78.00 Pure hypercholesterolemia, unspecified; K21.9 Gastro-esophageal reflux disease without esophagitis; E03.9 Hypothyroidism, unspecified; E11.9 Type 2 diabetes mellitus without complications; Z87.442 Personal history of urinary calculi; F17.210 Nicotine dependence, cigarettes, uncomplicated; Z90.89 Acquired absence of other organs
CPT/HCPCS: 36415; 80053; 80074; 83690; 83735; 84703; 85007; 85027; 86141; 96361; 96374; 96375

== ENCOUNTER 2017-12-30 06:10 | Emergency (ER) | payer SELFPAY ==
[~2017-12-30] VITALS: Ht 160 cm; Wt 81.6 kg
[~2017-12-30 06:10] MED LIST changes: +HYOS0.1283 SL
--- OUTSIDE RECORDS SUMMARY | 2017-12-30 06:17 | XMS REPORT | Clinical Summary ---
Author Author [facility] Address Unknown Phone Unavailable Care Team Providers Care Director Card Name Role Phone Cheo Cunha MD PP Unavailable Allergies Not on File Current Medications Not [...]
--- OUTSIDE RECORDS SUMMARY | 2017-12-30 06:17 | XMS REPORT | Continuity of Care Document ---
Author Author [facility] Organization [facility] Address Unknown Phone Unavailable Allergies Active Description Code Type Severity Reaction Onset Reported/Identified Relationship to Patient Clinical Status Yes No Known Drug Allergies [id number] Drug Allergy Unknown N/A 10/31/2007 Yes NKDA NKDA Mild N/ A 04/04/2009 Medications There is no data. Problems Date Dx Coded Attending Type Code Diagnosis Diagnosed By 12/03/2015 KISHORE SARGENT FREELANCE WRITER Ot M51.36 12/03/2015 SAGRARIO OJEDA MD (DDU) Ot Z02.71 01/06/2016 KISHORE SARGENT FREELANCE WRITER Ot M51.36 01/06/2016 SAGRARIO OJEDA MD (DDU) Ot Z02.71 01/06/2016 VERONICA RAWLS MD Ot M54.5 01/14/2016 KISHORE SARGENT FREELANCE WRITER Ot M51.36 01/14/2016 SAGRARIO OJEDA MD (DDU) Ot Z02.71 01/14/2016 KISHORE SARGENT FREELANCE WRITER Ot M51.36 01/14/2016 VERONICA RAWLS MD Ot M54.5 01/14/2016 VERONICA RAWLS MD Ot M54.5 LOW BACK PAIN 01/20/2016 KISHORE SARGENT FREELANCE WRITER Ot M51.36 01/20/2016 SAGRARIO OJEDA MD (DDU) Ot Z02.71 01/20/2016 KISHORE SARGENT FREELANCE WRITER Ot M51.36 01/20/2016 KISHORE SARGENT FREELANCE WRITER Ot M51.36 01/20/2016 SAGRARIO OJEDA MD (DDU) Ot Z02.71 01/20/2016 KISHORE SARGENT FREELANCE WRITER Ot M51.36 01/21/2016 NEGAR JURADO MD Ot F17.210 NICOTINE DEPENDENCE, CIGARETTES, UNCOMPL 01/21/2016 NEGAR JURADO MD Ot N13.2 HYDRONEPHROSIS WITH RENAL AND URETERAL C 01/21/2016 ADRINE ALFONSO, NEGAR Montesinos Ot N13.6 01/24/2016 KISHORE SARGENT FREELANCE WRITER Ot M51.36 03/12/2016 GEE CAPONE APRN Ot E11.9 TYPE 2 DIABETES MELLITUS WITHOUT COMPLIC 03/12/2016 GEE CAPONE PATIENT FINANCIAL COORDINATOR Ot G89.29 OTHER CHRONIC PAIN 03/12/2016 GEE CAPONE PATIENT FINANCIAL COORDINATOR Ot M54.16 RADICULOPATHY, LUMBAR REGION 03/12/2016 GEE CAPONE PATIENT FINANCIAL COORDINATOR Ot Z79.891 EXTRUDER OPERATOR HORIZONTAL (CURRENT) USE OF OPIATE ANALGE 03/12/2016 KISHORE SARGENT FREELANCE WRITER Ot M51.36 03/12/2016 RUSTY ALFONSO, SAGRARIO Donnelly (U) Ot Z02.71 03/12/2016 KISHORE SARGENT FREELANCE WRITER Ot M51.36 03/13/2016 GEE CAPONE APRN Ot E11.9 TYPE 2 DIABETES MELLITUS WITHOUT COMPLIC 03/13/2016 GEE CAPONE APRN Ot G89.29 OTHER CHRONIC PAIN 03/13/2016 GEE CAPONE APRN Ot M54.16 RADICULOPATHY, LUMBAR REGION 03/13/2016 GEE CAPONE APRN Ot Z79.891 EXTRUDER OPERATOR HORIZONTAL (CURRENT) USE OF OPIATE ANALGE 03/29/2016 Ot [...] 592.1 04/29/2017 Ot 789.00 07/15/2017 KISHORE SARGENT FREELANCE WRITER Ot M51.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 DISC DEGENERATION, 07/15/2017 SAGRARIO OJEDA MD (U) Ot Z02.71 ENCOUNTER FOR DISABILITY DETERMINATION 07/15/2017 KISHORE SARGENT FREELANCE WRITER Ot M51.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 DISC DEGENERATION, 07/15/2017 GEE CAPONE APRN Ot E03.9 HYPOTHYROIDISM, UNSPECIFIED 07/15/2017 GEE CAPONE PATIENT FINANCIAL COORDINATOR Ot E11.9 TYPE 2 DIABETES MELLITUS WITHOUT [...] STRIKE 07/15/2017 GEE CAPONE APRN Ot Y92.[address] [facility] [address] IN [facility] NON-INSTITUT (PRIVATE 07/15/2017 GEE CAPONE APRN Ot Z86.59 PERSONAL HISTORY OF OTHER MENTAL AND BEH 07/15/2017 GEE CAPONE APRN Ot Z87.442 PERSONAL HISTORY OF URINARY CALCULI 07/15/2017 GEE CAPONE APRN Ot Z90.89 ACQUIRED ABSENCE OF OTHER ORGANS 07/15/2017 KISHORE SARGENT FREELANCE WRITER Ot M51.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 DISC DEGENERATION, 07/15/2017 SAGRARIO OJEDA MD (U) Ot Z02.71 ENCOUNTER FOR DISABILITY DETERMINATION 07/15/2017 KISHORE SARGENTP Ot M51.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 DISC DEGENERATION, 10/19/2017 KISHORE SARGENT [facility] Ot M51.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 DISC DEGENERATION, 10/19/2017 RUSTY ALFONSO, SAGRARIO Donnelly ([facility]) Ot Z02.71 ENCOUNTER FOR DISABILITY DETERMINATION 10/19/2017 KISHORE SARGENT FREELANCE WRITER Ot M51.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 DISC DEGENERATION, 10/19/2017 ROCK ALFONSO, MISSY Arroyo Ot E03.9 HYPOTHYROIDISM, UNSPECIFIED 10/19/2017 MISSY WILKERSON MD Ot E11.9 TYPE 2 DIABETES MELLITUS WITHOUT COMPLIC 10/19/2017 MISSY WILKERSON MD Ot E78.00 PURE HYPERCHOLESTEROLEMIA, UNSPECIFIED 10/19/2017 MISSY WILKERSON MD Ot F17.210 NICOTINE DEPENDENCE, CIGARETTES, UNCOMPL 10/19/2017 MISSY WILKERSON MD Ot F41.9 ANXIETY DISORDER, UNSPECIFIED 10/19/2017 MISSY WILKERSON MD Ot J20.9 ACUTE BRONCHITIS, UNSPECIFIED 10/19/2017 MISSY WILKERSON MD Ot J45.901 UNSPECIFIED ASTHMA WITH (ACUTE) EXACERBA 10/19/2017 MISSY WILKERSON MD Ot K21.9 GASTRO-ESOPHAGEAL REFLUX DISEASE WITHOUT 10/19/2017 MISSY WILKERSON MD Ot R05 COUGH 10/19/2017 MISSY WILKERSON MD Ot Z87.442 PERSONAL HISTORY OF URINARY CALCULI 10/19/2017 MISSY WILKERSON MD Ot Z87.59 PERSONAL HISTORY OF COMP OF PREG, CHLDBR 10/19/2017 MISSY WILKERSON MD Ot Z90.89 ACQUIRED ABSENCE OF OTHER ORGANS 12/21/2017 MISSY WILKERSON MD Ot D72.829 ELEVATED WHITE BLOOD CELL COUNT, UNSPECI 12/21/2017 MISSY WILKERSON MD Ot E03.9 HYPOTHYROIDISM, UNSPECIFIED 12/21/2017 MISSY WILKERSON MD Ot E11.9 TYPE 2 DIABETES MELLITUS WITHOUT COMPLIC 12/21/2017 MISSY WILKERSON MD Ot E78.00 PURE HYPERCHOLESTEROLEMIA, UNSPECIFIED 12/21/2017 MISSY WILKERSON MD Ot F17.210 NICOTINE DEPENDENCE, CIGARETTES, UNCOMPL 12/21/2017 MISSY WILKERSON MD, Ot J45.909 UNSPECIFIED ASTHMA, UNCOMPLICATED 12/21/2017 MISSY WILKERSON MD, Ot K21.9 GASTRO-ESOPHAGEAL REFLUX DISEASE WITHOUT 12/21/2017 MISSY WLIKERSON MD, Ot R10.13 EPIGASTRIC PAIN 12/21/2017 MISSY WILKERSON MD, Ot R11.0 NAUSEA 12/21/2017 MISSY WILKERSON MD, Ot R19.7 DIARRHEA, UNSPECIFIED 12/21/2017 MISSY WILKERSON MD, Ot Z87.442 PERSONAL HISTORY OF URINARY CALCULI 12/21/2017 MISSY WILKERSON MD, Ot Z90.89 ACQUIRED ABSENCE OF OTHER ORGANS Procedures Code Description Performed By Performed On 56.31 URETEROSCOPY 12/13/2009 59.8 URETERAL CATHETERIZATION 12/13/2009 Results Test Result Range Complete blood count (CBC) with automated white blood cell (WBC) differential - 12/19/17 20:41 Blood leukocytes automated count (number/volume) 18.4 10*3/uL 4.3-11.0 Blood erythrocytes automated count (number/volume) 5.53 10*6/uL 4.35-5.85 Venous blood hemoglobin measurement (mass/volume) 14.2 g/dL 11.5-16.0 Blood hematocrit (volume fraction) 43 % 35-52 Automated erythrocyte mean corpuscular volume 78 [foz_us] 80-99 Automated erythrocyte mean corpuscular hemoglobin (mass per erythrocyte) 26 pg 25-34 Automated erythrocyte mean corpuscular hemoglobin concentration measurement ( mass/volume) 33 g/dL 32-36 Automated erythrocyte distribution width ratio 17.4 % 10.0-14.5 Automated blood platelet count (count/volume) 521 10*3/uL 130-400 Automated blood platelet mean volume measurement 10.5 [foz_us] 7.4-10.4 Automated blood neutrophils/100 leukocytes 85 % 42-75 Automated blood lymphocytes/100 leukocytes 5 % 12-44 Blood monocytes/100 leukocytes 7 % 0-12 Automated blood eosinophils/100 leukocytes 3 % 0-10 Automated blood basophils/100 leukocytes 0 % 0-10 Blood neutrophils automated count (number/volume) 15.7 10*3 1.8-7.8 Blood lymphocytes automated count (number/volume) 1.0 10*3 1.0-4.0 Blood monocytes automated count (number/volume) 1.2 10*3 0.0-1.0 Automated eosinophil count 0.5 10*3/uL 0.0-0.3 Automated blood basophil count (count/volume) 0.1 10*3/uL 0.0-0.1 Blood manual differential performed detection - 12/19/17 20:41 Blood monocytes/100 leukocytes 5 % NRG Manual blood segmented neutrophils/100 leukocytes 85 % NRG Blood band neutrophils/100 leukocytes 0 % NRG Manual blood lymphocytes/100 leukocytes 6 % NRG Manual eosinophils/100 leukocytes in nose 3 % NRG Manual blood basophils/100 leukocytes 1 % NRG Blood erythrocyte morphology finding identification [facility] Comprehensive metabolic panel - 12/19/17 20:41 Serum or plasma sodium measurement (moles/volume) 136 mmol/L 135-145 Serum or plasma potassium measurement (moles/volume) 4.0 mmol/L 3.6-5.0 Serum or plasma chloride measurement (moles/volume) 104 mmol/L 98-107 Carbon dioxide 21 mmol/L 21-32 Serum or plasma anion gap determination (moles/volume) 11 mmol/L 5-14 Serum or plasma urea nitrogen measurement (mass/volume) 11 mg/dL 7-18 Serum or plasma creatinine measurement (mass/volume) 0.80 mg/dL 0.60-1.30 Serum or plasma urea nitrogen/creatinine mass ratio 14 NRG Serum or plasma creatinine measurement with calculation of estimated glomerular filtration rate > NRG Serum or plasma glucose measurement (mass/volume) 147 mg/dL 70-105 Serum or plasma calcium measurement (mass/volume) 9.6 mg/dL 8.5-10.1 Serum or plasma total bilirubin measurement (mass/volume) 0.5 mg/dL 0.1-1.0 Serum or plasma alkaline phosphatase measurement (enzymatic activity/volume) 102 U/L 40-136 Serum or plasma aspartate aminotransferase measurement (enzymatic activity/ volume) 14 U/L 5-34 Serum or plasma alanine aminotransferase measurement (enzymatic activity/volume ) 22 U/L 0-55 Serum or plasma protein measurement (mass/volume) 7.2 g/dL 6.4-8.2 Serum or plasma albumin measurement (mass/volume) 3.8 g/dL 3.2-4.5 Magnesium - 12/19/17 20:41 Magnesium 2.0 mg/dL 1.8-2.4 Serum or plasma choriogonadotropin ( test) detection - 12/19/17 20:41 Serum or plasma choriogonadotropin ( test) detection NEGATIVE NEGATIVE Lipase - 12/19/17 20:41 Lipase 10 U/L 8-78 Serum or plasma C reactive protein measurement (mass/volume) - 12/19/17 20:41 Serum or plasma C reactive protein measurement (mass/volume) 2.42 mg /dL 0.00-0.50 Acute hepatitis panel - 12/19/17 20:41 Confirmatory quantitative serum or plasma hepatitis B virus surface antigen measurement Non-Reactive Non-Reactive Hepatitis A virus IgM antibody assay Non-Reactive Non- Reactive Hepatitis B virus core IgM antibody assay Non-Reactive Non-Reactive Serum hepatitis C virus antibody detection Non-Reactive Non-Reactive Encounters ACCT No. Visit Date/Time Discharge Status Pt. Type Provider Facility Loc./Unit Complaint [id number] 12/19/2017 19:14:00 12/19/2017 22:48:00 DIS Outpatient MISSY WILKERSON MD [facility] ER CRAMPING SOA DIARRHEA [id number] 10/19/2017 08:44:00 10/19/2017 11:08:00 DIS Emergency MISSY WILKERSON MD [facility] ER COUGH/CHEST CONGESTION [id number] 07/15/2017 12:18:00 07/15/2017 13:26:00 DIS Emergency GEE CAPONE APRN [facility] ER FALL LOWER BACK PAIN [id number] 04/03/2016 22:00:00 04/03/2016 22:01:00 DIS Emergency ELIZ DO, AMBROSE K [facility] ER LACERATION [id number] 03/12/2016 14:07:00 03/12/2016 15:37:00 DIS Emergency GEE CAPONE APRN [facility] ER [id number] 01/20/2016 23:30:00 01/21/2016 05:21:00 DIS Inpatient NEGAR JURADO MD [facility] 4TH UTI,LEUKOCYTOSIS,LEFT URETERAL STONE [id number] 12/31/2015 14:21:00 01/14/2016 15:57:00 DIS Outpatient CURLY ALFONSO, VERONICA Cannon [facility] REHAB LUMBAGO [id number] 01/06/2016 15:26:00 01/06/2016 23:59:59 CLS Outpatient KISHORE SARGENT [facility] RAD DEGENERATIVE DISC DISEASE [id number] 10/09/2015 16:33:00 10/09/2015 23:59:59 CLS Outpatient KISHORE SARGENT FREELANCE WRITER [facility] RAD DDD [id number] 10/02/2015 13:40:00 10/02/2015 23:59:59 CLS Outpatient RUSTY ALFONSO, SAGRARIO Donnelly (DDU) [facility] RAD DDS [id number] 10/02/2015 13:39:00 Document Registration [id number] 10/02/2015 13:39:00 Document Registration [id number] 01/19/2009 02:45:00 Document Registration
[2017-12-30] MEDS ORDERED: RT-ALBUTEROL/IPRATROPIUM 3 ML (DUONEB) VIAL INH ONE (06:45)
[2017-12-30] MEDS ORDERED: ASPIRIN 81 MG CHEW (CHILDREN'S ASA) PO ONE (06:45)
--- NOTE | 2017-12-30 06:46 | ED Chest Pain ---
General Chief Complaint: Cough/Cold/Flu Symptoms Stated Complaint: SOB Nursing Triage Note: PT PRESETNTS TO ED WITH COMPLAINT OF CHEST/RIB PRESSURE. ALSO COMPLAINING OF DIARRHEA, NASAL CONGESTION, COUGH. Nursing Sepsis Screen: No Definite Risk Source: patient, old records Exam Limitations: no limitations History of Present Illness Date Seen by Provider: Dec 30, 2017 Time Seen by Provider: 06:20 Initial Comments This 47 showed woman presents to the emergency room with "bronchitis" for the past 3 days. She complains of chest pain described as a heaviness, shortness of breath, wheezing, and just generally feeling ill. She has pain with inspiration and coughing. She states her chest is "sore". However, she also has had some pain separate from breathing and coughing that has radiated down her left arm. She has no history of cardiovascular disease. She has been using a Proventil inhaler and nebulizer treatments at home. She continues to smoke. She is afebrile. She took ibuprofen 800 mg this morning. She also took some Bactrim given to her by her a couple days ago. Allergies and Home Medications Allergies Coded Allergies: No Known Drug Allergies (Verified , 10/31/07) Uncoded Allergies: NKDA (Allergy, Mild, 04/04/09) Home Medications Albuterol Sulfate 2.5 Mg/3 Ml Vial.neb, 2.5 MG IH Q4H, #30 Prescribed by: MISSY LUTHER on 10/19/17 1101 Azithromycin 250 Mg Tablet, 250 MG PO UD, #6 TAKE 2 TABLETS ON DAY ONE THEN TAKE 1 TABLET DAILY FOR FOUR MORE DAYS Prescribed by: MISSY LUTHER on 12/30/17 0741 Hyoscyamine Sulfate 0.125 Mg Tab.subl, 0.125 MG SL Q4H PRN for CRAMPS, #10 For bowel cramping and diarrhea Prescribed by: MISSY LUTHER on 12/19/17 2250 Ipratropium/Albuterol Sulfate 14.7 Gm Aer.w.adap, (Reported) Prednisone 10 Mg Tab, 10 MG PO UD, #20 Use 4 tablets daily for 2 days, then 3 tabs daily for 2 days, then 2 tabs daily for 2 days, then one tab daily for 2 days Prescribed by: MISSY LUTHER on 10/19/17 1101 Prednisone 20 Mg Tab, 20 MG PO DAILY, #3 Prescribed by: MISSY LUTHER on 12/30/17 0741 Review of Systems Constitutional: see HPI EENTM: Nose Congestion Respiratory: See HPI Cardiovascular: See HPI Gastrointestinal: No Symptoms Reported Genitourinary: No Symptoms Reported Musculoskeletal: muscle pain Skin: no symptoms reported Psychiatric/Neurological: No Symptoms Reported Endocrine: No Symptoms Reported Past Adavacm-Pilzew-Ygrozf Hx Patient Social History Alcohol Use: Denies Use Recreational Drug Use: No Smoking Status: Current Everyday Smoker Type Used: Cigarettes Recent Foreign Travel: No Contact w/Someone Who Travel: No Recent Infectious Disease Expo: No Recent Hopitalizations: No Seasonal Allergies Seasonal Allergies: No Surgeries History of Surgeries: Yes (LITHOTRIPSY) Surgeries: Section, Gallbladder, Renal, Tonsillectomy Respiratory History of Respiratory Disorde: Yes Respiratory Disorders: Asthma Cardiovascular History of Cardiac Disorders: Yes Cardiac Disorders: High Cholesterol Neurological History of Neurological Disord: No Reproductive System Hx Reproductive Disorders: No Genitourinary History of Genitourinary Disor: Yes Genitourinary Disorders: Kidney Stones Gastrointestinal History of Gastrointestinal Di: Yes Gastrointestinal Disorders: Gastroesophageal Reflux Musculoskeletal History of Musculoskeletal Dis: Yes Musculoskeletal Disorders: Degenerate Disk Disease Endocrine History of Endocrine Disorders: Yes Endocrine Disorders: Hypothyroidsim, Diabetes, Non-Insulin dep HEENT History of HEENT Disorders: No Cancer History of Cancer: No Psychosocial History of Psychiatric Problem: Yes Behavioral Health Disorders: Sleep Difficulties, Anxiety Integumentary History of Skin or Integumenta: No Blood Transfusions History of Blood Disorders: No Physical Exam Vital Signs Vital Sign - Last 12Hours 12/30/17 06:31 Temp 97.8 Pulse 92 Resp 20 B/P (MAP) 140/84 (102) Pulse Ox 93 O2 Delivery Room Air Capillary Refill : Less Than 3 Seconds General Appearance: WD/WN, Mild Distress HEENT: PERRL/EOMI, TMs Normal, Normal ENT Inspection, Pharynx Normal Neck: Normal Inspection Respiratory: Lungs Clear, Normal Breath Sounds, No Accessory Muscle Use, No Respiratory Distress Cardiovascular: Regular Rate, Rhythm, No Edema, No Murmur Gastrointestinal: Non Tender, Soft Extremity: Normal Inspection, No Calf Tenderness, No Pedal Edema, Other ( negative Serene) Neurologic/Psychiatric: Alert, Oriented x3, No Motor/Sensory Deficits, Normal Mood/Affect, director television II-XII Norm as Tested Skin: Normal Color, Warm/Dry Progress/Results/Core Measures Results/Orders Lab Results Laboratory Tests Test 12/30/17 06:50 Range/Units White Blood Count 12.3 H 4.3-11.0 10^3/uL Red Blood Count 4.76 4.35-5.85 10^6/uL Hemoglobin 12.0 11.5-16.0 G/DL Hematocrit 37 35-52 % Mean Corpuscular Volume 77 L 80-99 FL Mean Corpuscular Hemoglobin 25 25-34 PG Mean Corpuscular Hemoglobin Concent 33 32-36 G/DL Red Cell Distribution Width 16.3 H 10.0-14.5 % Platelet Count 429 H 130-400 10^3/uL Mean Platelet Volume 10.1 7.4-10.4 FL Neutrophils (%) (Auto) 73 42-75 % Lymphocytes (%) (Auto) 11 L 12-44 % Monocytes (%) (Auto) 9 0-12 % Eosinophils (%) (Auto) 5 0-10 % Basophils (%) (Auto) 1 0-10 % Neutrophils # (Auto) 9.0 H 1.8-7.8 X 10^3 Lymphocytes # (Auto) 1.4 1.0-4.0 X 10^3 Monocytes # (Auto) 1.1 H 0.0-1.0 X 10^3 Eosinophils # (Auto) 0.6 H 0.0-0.3 10^3/uL Basophils # (Auto) 0.2 H 0.0-0.1 10^3/uL Prothrombin Time 13.9 12.2-14.7 SEC INR Comment 1.1 0.8-1.4 Activated Partial Thromboplast Time 30 24-35 SEC Sodium Level 138 135-145 MMOL/L Potassium Level 3.7 3.6-5.0 MMOL/L Chloride Level 106 98-107 MMOL/L Carbon Dioxide Level 21 21-32 MMOL/L Anion Gap 11 5-14 MMOL/L Blood Urea Nitrogen 10 7-18 MG/DL Creatinine 0.78 0.60-1.30 MG/DL Estimat Glomerular Filtration Rate > 60 BUN/Creatinine Ratio 13 Glucose Level 135 H 70-105 MG/DL Calcium Level 9.0 8.5-10.1 MG/DL Magnesium Level 1.8 1.8-2.4 MG/DL Total Bilirubin 0.4 0.1-1.0 MG/DL Aspartate Amino Transf (AST/SGOT) 29 5-34 U/L Alanine Aminotransferase (ALT/SGPT) 25 0-55 U/L Alkaline Phosphatase 104 40-136 U/L Myoglobin 146.7 H 10.0-92.0 NG/ML Troponin I < 0.30 <0.30 NG/ML Total Protein 7.1 6.4-8.2 GM/DL Albumin 3.5 3.2-4.5 GM/DL Micro Results Microbiology 12/30/17 Influenza Types A,B Antigen (CHAPIS) - Final, Complete My Orders Orders - MISSY WILKERSON MD Chest Pa/Lat (2 View) (12/30/17 06:32) Influenza A And B Antigens (12/30/17 06:32) Albuterol/Ipra Inhalation Soln (Duoneb I (12/30/17 06:45) Svn Sm Volume Nebulizer Rt-Rfs (12/30/17 06:32) Cbc With Automated Diff (12/30/17 06:32) Magnesium (12/30/17 06:32) Ekg Tracing (12/30/17 06:32) Cardiac Profile 1 (12/30/17 06:32) Comprehensive Metabolic Panel (12/30/17 06:32) Myoglobin Serum (12/30/17 06:32) Protime With Inr (12/30/17 06:32) Partial Thromboplastin Time (12/30/17 06:32) O2 (12/30/17 06:32) Monitor-Rhythm Ecg Trace Only (12/30/17 06:32) Lipid Panel (12/31/17 06:00) Aspirin Chewable Tablet (Baby Aspirin Ch (12/30/17 06:45) Saline Lock/Iv-Start (12/30/17 06:32) Medications Given in ED Current Medications Medications Dose Ordered Sig/Luis Route Start Time Stop Time Status Last Admin Dose Admin Albuterol/ Ipratropium 3 ml ONCE ONCE INH 12/30/17 06:45 12/30/17 06:46 DC 12/30/17 06:48 3 ML Aspirin 324 mg ONCE ONCE PO 12/30/17 06:45 12/30/17 06:46 DC 12/30/17 06:44 324 MG Vital Signs/I&O Vital Sign - Last 12Hours 12/30/17 12/30/17 06:31 06:48 Temp 97.8 Pulse 92 Resp 20 B/P (MAP) 140/84 (102) Pulse Ox 93 92 O2 Delivery Room Air Blood Pressure Mean: 102 Progress Note : Progress Note Patient received a DuoNeb treatment which did improve her symptoms. Labs reveal the leukocytosis and some perihilar infiltrate. Patient was prescribed azithromycin and a short course of steroids. Steroid dosing was conservative due to her diabetes. She was strongly encouraged to discontinue smoking. ECG Initial ECG Impression Date: Dec 30, 2017 Initial ECG Impression Time: 06:36 Initial ECG Rate: 90 Initial ECG Rhythm: Normal Sinus Initial ECG Intervals: Normal Initial ECG Impression: Normal Comment Normal sinus rhythm with no ST elevation or depression. No abnormal intervals or axis deviation. Diagnostic Imaging Diagonstic Imaging: Xray Plain Films/CT/US/NM/MRI: chest Comments Chest x-ray viewed by me and report reviewed. See report below: NAME: LUCRECIA LUQUE [facility] REC#: [id number] PT STATUS: REG ER : 1970 PHYSICIAN: MISSY WILKERSON MD ADMIT DATE: 12/30/17/ER Draft Date of Exam:12/30/17 CHEST PA/LAT (2 VIEW) INDICATION: Cough and dyspnea PA and lateral views of the chest are obtained with comparison made to the study of 10/19/2017. Overall heart size and pulmonary vascularity are within normal limits. There is slight increase in perihilar markings, however, no consolidation, pneumothorax or pleural fluid is identified. IMPRESSION: Slight increase in parahilar densities may represent mild pneumonitis or bronchitis. There is no consolidation or other acute abnormality detected. Dictated on workstation # [id number] Dict: 12/30/17 0722 Trans: 12/30/17 0726 LINNETTE [id number] Interpreted by: HANS DEAN MD Departure Impression Impression: Primary Impression: Chest pain Qualified Codes: R07.9 - Chest pain, unspecified Additional Impression: Acute bronchitis Qualified Codes: J20.9 - Acute bronchitis, unspecified Disposition: 01 HOME, SELF-CARE Condition: Improved Departure-Patient Inst. Decision time for Depature: 07:39 Referrals: [facility] (PCP/Family) Primary Care Physician Patient Instructions: Acute Bronchitis, Adult (DC) Add. Discharge Instructions: Reduce your smoking as much as possible and work toward quitting. Seek assistance from your primary care provider if needed. In the meantime, you may use nicotine replacement with patches, lozenges, or gum. Do not use over-the- counter vapor nicotine replacement. You may use ibuprofen up to 600 mg every 6 hours as needed for pain. Add Tylenol (acetaminophen) up to 1000 mg every 6 hours as needed for additional pain relief. Take ibuprofen with food or milk to avoid stomach irritation. Use your prednisone as prescribed. Take early in the day to avoid sleep disturbance. Take with food or milk to avoid stomach irritation. You may continue to use nebulizer treatments every 4 hours as needed for wheezing and shortness of breath. Complete your antibiotics as prescribed. Return to the emergency room if symptoms worsen. Please follow-up with your primary care provider within the next week for reevaluation. Drink plenty of clear liquids. All discharge instructions reviewed with patient and/or family. Voiced understanding. Scripts Azithromycin (Azithromycin) 250 Mg Tablet 250 MG PO UD, #6 TAB TAKE 2 TABLETS ON DAY ONE THEN TAKE 1 TABLET DAILY FOR FOUR MORE DAYS Prov: MISSY WILKERSON MD 12/30/17 Prednisone (Prednisone) 20 Mg Tab 20 MG PO DAILY, #3 TAB Prov: MISSY WILKERSON MD 12/30/17 Copy Copies To 1: PA BERGERON JOSHUA T MD Dec 30, 2017 06:46
[2017-12-30 07:02] LABS: BASOPHILS # (AUTO) 0.2 10^3/uL (0.0-0.1); BASOPHILS % (AUTO) 1 % (0-10); EOSINOPHILS # (AUTO) 0.6 10^3/uL (0.0-0.3); EOSINOPHILS % (AUTO) 5 % (0-10); HEMATOCRIT 37 % (35-52); LYMPHOCYTES # (AUTO) 1.4 X 10^3 (1.0-4.0); LYMPHOCYTES % (AUTO) 11 % (12-44); MEAN CORPUSCULAR HEMOGLOBIN 25 PG (25-34); MEAN CORPUSCULAR HGB CONC 33 G/DL (32-36); MEAN CORPUSCULAR VOLUME 77 FL (80-99); MEAN PLATELET VOLUME 10.1 FL (7.4-10.4); MONOCYTES # (AUTO) 1.1 X 10^3 (0.0-1.0); MONOCYTES % (AUTO) 9 % (0-12); NEUTROPHILS % (AUTO) 73 % (42-75); PLATELET COUNT 429 10^3/uL (130-400); RED BLOOD COUNT 4.76 10^6/uL (4.35-5.85); RED CELL DISTRIBUTION WIDTH 16.3 % (10.0-14.5); WHITE BLOOD COUNT 12.3 10^3/uL (4.3-11.0)
[2017-12-30 07:09] LABS: INR 1.1 (0.8-1.4); PROTHROMBIN TIME PATIENT 13.9 SEC (12.2-14.7)
[2017-12-30 07:23] LABS: ALANINE AMINOTRANSFERASE 25 U/L (0-55); ALBUMIN 3.5 GM/DL (3.2-4.5); ALKALINE PHOSPHATASE 104 U/L (40-136); BILIRUBIN,TOTAL 0.4 MG/DL (0.1-1.0); BUN/CREATININE RATIO 13; CARBON DIOXIDE 21 MMOL/L (21-32); CHLORIDE 106 MMOL/L (98-107); CREATININE SERUM 0.78 MG/DL (0.60-1.30); GFR ESTIMATED > 60; GLUCOSE 135 MG/DL (70-105); MAGNESIUM 1.8 MG/DL (1.8-2.4); POTASSIUM 3.7 MMOL/L (3.6-5.0); SODIUM 138 MMOL/L (135-145); TOTAL PROTEIN 7.1 GM/DL (6.4-8.2)
--- NOTE | 2017-12-30 07:26 | Diagnostic Imaging Report ---
INDICATION: Cough and dyspnea PA and lateral views of the chest are obtained with comparison made to the study of 10/19/2017. Overall heart size and pulmonary vascularity are within normal limits. There is slight increase in perihilar markings, however, no consolidation, pneumothorax or pleural fluid is identified. IMPRESSION: Slight increase in parahilar densities may represent mild pneumonitis or bronchitis. There is no consolidation or other acute abnormality detected. Dictated by: Dictated on workstation # [id number]
[2017-12-30 07:30] LABS: MYOGLOBIN SERUM 146.7 NG/ML (10.0-92.0)
[2017-12-30] MEDS ORDERED: PRD20T PO (07:41)
[2017-12-30] MEDS ORDERED: AZIT250T12 PO (07:41)
[2017-12-30 07:50] VITALS: BP 149/89
[2017-12-30] MEDS ORDERED: RT-ALBUTEROL/IPRATROPIUM 3 ML (DUONEB) VIAL ONE (12:18)
== END 2017-12-30 07:50 | disposition home or self-care (01) ==
LOC: EDUNIT# 06:10 → ER 06:13
DX: J20.9 Acute bronchitis, unspecified (principal); F41.9 Anxiety disorder, unspecified; E03.9 Hypothyroidism, unspecified; K21.9 Gastro-esophageal reflux disease without esophagitis; E78.00 Pure hypercholesterolemia, unspecified; E11.9 Type 2 diabetes mellitus without complications; F17.210 Nicotine dependence, cigarettes, uncomplicated; Z90.89 Acquired absence of other organs; Z87.59 Personal history of other complications of pregnancy, childbirth and the puerperium; Z87.442 Personal history of urinary calculi; Z79.52 Long term (current) use of systemic steroids
CPT/HCPCS: 36415; 71046; 80053; 83735; 83874; 84484; 85025; 85610; 85730; 87804; 93005; 93041; 94640

== ENCOUNTER 2018-04-29 19:52 | Emergency (ER) | payer SELFPAY ==
[~2018-04-29] VITALS: Ht 160 cm; Wt 127.0 kg
[~2018-04-29 19:52] MED LIST changes: +AZIT250T12 PO; +PRD20T PO
[2018-04-29 19:53] VITALS: BP 165/90
--- NOTE | 2018-04-29 20:01 | ED EENT ---
History of Present Illness General Chief Complaint: Oral/Throat Problems Stated Complaint: CHOKING Source: patient, EMS Exam Limitations: no limitations (BRIDGETT ULLOA STUDENT) History of Present Illness Date Seen by Provider: Apr 29, 2018 Time Seen by Provider: 19:56 Initial Comments The patient is to ER by [facility] with reports of getting a chip caught in her throat. The patient is unsure if the chip is still there but states that her throat is very painful. Patient denies any shortness of breath or difficulty swallowing at this time. Timing/Duration: abrupt Location: throat Associated Symptoms: No cough, No drooling, No facial pain/swelling, No fever, No malaise; sore throat (BRIDGETT ULLOA STUDENT) Allergies and Home Medications Allergies Coded Allergies: No Known Drug Allergies (Verified , 10/31/07) Uncoded Allergies: NKDA (Allergy, Mild, 04/04/09) Home Medications Albuterol Sulfate 2.5 Mg/3 Ml Vial.neb, 2.5 MG IH Q4H Prescribed by: MISSY LUTHER on 10/19/17 110 Amoxicillin/Potassium Clav 250 Mg/5 Ml Susp.recon, 2 TSP PO TID Prescribed by: GEE CAPONE on 04/29/182118 Azithromycin 250 Mg Tablet, 250 MG PO UD TAKE 2 TABLETS ON DAY ONE THEN TAKE 1 TABLET DAILY FOR FOUR MORE DAYS Prescribed by: MISSY LUTHER on 12/30/17740 Hyoscyamine Sulfate 0.125 Mg Tab.subl, 0.125 MG SL Q4H PRN for CRAMPS For bowel cramping and diarrhea Prescribed by: MISSY LUTHER on 12/19/17 225 Pantoprazole Sodium 40 Mg Tablet.dr, 40 MG PO DAILY Prescribed by: GEE CAPONE on 04/29/182117 Prednisone 10 Mg Tab, 10 MG PO UD Use 4 tablets daily for 2 days, then 3 tabs daily for 2 days, then 2 tabs daily for 2 days, then one tab daily for 2 days Prescribed by: MISSY LUTHER on 10/19/171100 Prednisone 20 Mg Tab, 20 MG PO DAILY Prescribed by: MISSY LUTHER on 12/30/17 07 Patient Home Medication List Home Medication List Reviewed: Yes (BRIDGETT ULLOA) Home Medication List Reviewed: Yes (GEE CAPONE APRN) Review of Systems Constitutional: see HPI Eyes: See HPI Ears: See HPI Nose: see HPI Mouth: see HPI Throat: pain, painful swallowing Respiratory: see HPI Cardiovascular: see HPI Gastrointestinal: see HPI Musculoskeletal: see HPI Skin: see HPI Neurological: See HPI Hematologic/Lymphatic: See HPI Immunological/Allergic: see HPI (BRIDGETT ULLOA STUDENT) Past Jeflbjs-Vwcsde-Cqcams Hx Past Med/Social Hx: Reviewed Nursing Past Med/Soc Hx (BRIDGETT ULLOA STUDENT) Patient Social History Type Used: Cigarettes Recent Hopitalizations: No (BRIDGETT ULLOA STUDENT) Seasonal Allergies Seasonal Allergies: No (BRIDGETT ULLOA STUDENT) Past Medical History Surgeries: Yes (LITHOTRIPSY) Section, Gallbladder, Renal, Tonsillectomy Respiratory: Yes Asthma Cardiac: Yes High Cholesterol Neurological: No Reproductive Disorders: No Genitourinary: Yes Kidney Stones Gastrointestinal: Yes Gastroesophageal Reflux Musculoskeletal: Yes Degenerate Disk Disease Endocrine: Yes Hypothyroidsim, Diabetes, Non-Insulin dep HEENT: No Cancer: No Psychosocial: Yes Sleep Difficulties, Anxiety Integumentary: No Blood Disorders: No (BRIDGETT ULLOA STUDENT) Family Medical History Reviewed Nursing Family Hx (BRIDGETT ULLOA STUDENT) Physical Exam Vital Signs Vital Signs - First Documented 04/29/18 19:53 Temp 98.0 Pulse 97 Resp 20 B/P (MAP) 165/90 (115) Pulse Ox 96 O2 Delivery Room Air (GEE CAPONE APRN) General Appearance: WD/WN, no apparent distress Eyes: bilateral eye normal inspection Ears: bilateral ear auricle normal Nose: normal inspection Mouth/Throat: normal mouth inspection, pharynx normal Neck: non-tender, full range of motion, supple, normal inspection Cardiovascular: normal peripheral pulses, regular rate, rhythm, no edema, no gallop, no JVD, no murmur Respiratory: chest non-tender, lungs clear, normal breath sounds, no respiratory distress, no accessory muscle use Gastrointestinal: normal bowel sounds, non tender, soft, no organomegaly, no pulsatile mass Neurologic/Psychiatric: alert, normal mood/affect, oriented x 3 Skin: normal color, warm/dry (BRIDGETT ULLOA STUDENT) Progress/Results/Core Measures Results/Orders My Orders Orders - GEE CAPONE APRN Lidocaine 2% Viscous 15 Ml (Xylocaine Vi (04/29/18 20:15) Antacid Suspension (Mylanta Suspension (04/29/18 20:15) Ct Chest Wo (04/29/18 20:23) Rx-Amoxicillin/Clav Suspension (Rx-Augme (04/29/18 21:15) Lidocaine 2% Viscous 15 Ml (Xylocaine Vi (04/29/18 21:15) Antacid Suspension (Mylanta Suspension (04/29/18 21:15) Morphine Injection (Morphine Injection (04/29/18 21:30) (GEE CAPONE APRN) Medications Given in ED Current Medications Medications Dose Ordered Sig/Luis Route Start Time Stop Time Status Last Admin Dose Admin Al Hydrox/Mg Hydrox/Simethicone 30 ml ONCE ONCE PO 04/29/18 20:15 04/29/18 20:16 DC 04/29/18 20:15 30 ML Lidocaine HCl 15 ml ONCE ONCE PO 04/29/18 20:15 04/29/18 20:16 DC 04/29/18 20:15 15 ML Morphine Sulfate 6 mg ONCE ONCE IJ 04/29/18 21:30 04/29/18 21:31 DC 04/29/18 21:35 6 MG (GEE CAPONE APRN) Vital Signs/I&O 04/29/18 19:53 Temp 98.0 Pulse 97 Resp 20 B/P (MAP) 165/90 (115) Pulse Ox 96 O2 Delivery Room Air (GEE CAPONE APRN) Departure Communication (Admissions) 2009-I've seen the patient in conjunction with Bridgett Ulloa. she states that she has severe pain in her throat after eating a tortilla chip. She feels as though the tortilla chip became lodged in her throat. She drank a large amount of water shortly thereafter trying to "flush it down".. She does report a very sharp pain in the throat at about the border of the upper manubrium. There is nothing visualized on inspection. There is no stridor. She is swallowing her own secretions. GI cocktail was ordered. 2023- denies any improvement at all in her discomfort after the GI cocktail.We will now order a CT of the chest without. 2112- there is obvious small amount of air just outside the esophagus on the right image 15 sequence 2. I discussed with radiologist and he will make an addendum to his report, he agrees with this possibility. Discussed with Dr. Tidwell. He recommends admission, liquid diet antibiotics being Zosyn, Diflucan, IV fluids and given Protonix drip. I discussed this plan with the patient that she refuses to be admitted. We will have her sign out AGAINST MEDICAL ADVICE.I will still cover her with Augmentin Protonix and clear liquids. (GEE CAPONE APRN) Impression Primary Impression: Esophageal abrasion Disposition: AGAINST MEDICAL ADVICE Condition: Stable Departure-Patient Inst. Decision time for Depature: 20:13 (GEE CAPONE APRN) Referrals: [facility] [place] (PCP/Family) Primary Care Physician Patient Instructions: NO INSTRUCTIONS GIVEN Add. Discharge Instructions: 1. Use thepain medication as directed. Sip on this only a very small amount about once an hour as needed. Eat aclear liquid diet for the next 72 hours and this will help to minimize her pain.return promptly to the emergency room for any fevers or worsening pain or trouble breathing.Antibiotics as directed.All discharge instructions reviewed with patient and/or family. Voiced understanding. Scripts Amoxicillin/Potassium Clav (Augmentin 250-62.5 mg/5 ml) 250 Mg/5 Ml Susp.recon 2 TSP PO TID for 4 Days, ML Prov: GEE CAPONE APRN 04/29/18 Pantoprazole Sodium (Protonix) 40 Mg Tablet. 40 MG PO DAILY, #20 TAB Prov: GEE CAPONE APRN 04/29/18 BRIDGETT ULLOA STUDENT Apr 29, 2018 20:01 GEE CAPONE APRN Apr 29, 2018 20:14
[2018-04-29] MEDS ORDERED: LIDOCAINE 2% VISCOUS 15 ML UDC PO ONE ×2 (20:15→21:15)
[2018-04-29] MEDS ORDERED: ANTACID SUSP 30 ML UDC (MYLANTA) PO ONE ×2 (20:15→21:15)
--- NOTE | 2018-04-29 20:48 | Diagnostic Imaging Report ---
PROCEDURE: CT chest without contrast. TECHNIQUE: Multiple contiguous axial images were obtained through the chest without the use of intravenous contrast. INDICATION: Difficulty swallowing. FINDINGS: The lungs are well aerated. There are no infiltrates. No masses are present. No evidence of pulmonary edema. No pneumothorax or pleural effusion. Aorta is not dilated. No mediastinal or hilar adenopathy of pathologic size is demonstrated. The esophagus is not dilated. There is a single 5 mm drop of air outside of the trachea and esophagus on the right and at the level of the thoracic inlet. The esophageal wall appears uniform at this level. The trachea appears normal. There is no associated edema of the surrounding fat. There is no free fluid. No evidence of hiatal hernia. Stomach is not distended where visualized. There are no bony lesions. The lower neck shows normal-appearing larynx. Thyroid and cricoid cartilage are normal. Thyroid gland is not enlarged. No adenopathy seen in the lower neck. IMPRESSION: 1. There is a single small drop of air noted in the upper mediastinum on the right adjacent to the trachea and esophagus measuring less than 5 mm. There is no associated edema of the fat or fluid present in the paratracheal or paraesophageal region. This was discussed with the ER physician. Dictated by: Dictated on workstation # [id number]
[2018-04-29] MEDS ORDERED: RX-AUGMENTIN SUSP 400 MG/5ML 75 ML BTL PO STA (21:15)
[2018-04-29] MEDS ORDERED: PANT40TA2 PO (21:18)
[2018-04-29] MEDS ORDERED: AMOX250S70 PO (21:19)
[2018-04-29] MEDS ORDERED: morphine INJ 10 MG/ML 1ML (SYR OR VIAL) IJ ONE (21:30)
== END 2018-04-29 21:37 | disposition left against medical advice (07) ==
LOC: EDUNIT# 19:52 → ER 19:53
DX: S27.818A Other injury of esophagus (thoracic part), initial encounter (principal); J45.909 Unspecified asthma, uncomplicated; E78.00 Pure hypercholesterolemia, unspecified; K21.9 Gastro-esophageal reflux disease without esophagitis; E03.9 Hypothyroidism, unspecified; E11.9 Type 2 diabetes mellitus without complications; F41.9 Anxiety disorder, unspecified; Z79.51 Long term (current) use of inhaled steroids; Z79.52 Long term (current) use of systemic steroids; Z87.442 Personal history of urinary calculi; Z87.59 Personal history of other complications of pregnancy, childbirth and the puerperium; Z90.89 Acquired absence of other organs; X58.XXXA Exposure to other specified factors, initial encounter
CPT/HCPCS: 71250; 96372; 99283

== ENCOUNTER 2018-05-21 18:44 | Emergency (ER) | payer SELFPAY ==
[~2018-05-21] VITALS: Ht 160 cm; Wt 117.9 kg
[2018-05-21 18:44] VITALS: BP 137/82
[~2018-05-21 18:44] MED LIST changes: +AMOX250S70 PO; +PANT40TA2 PO
--- OUTSIDE RECORDS SUMMARY | 2018-05-21 18:48 | XMS REPORT | Clinical Summary ---
Author Author [facility] Address Unknown Phone Unavailable Care Team Providers Care Target Protection Specialist Name Role Phone Cheo Cunha MD PP Unavailable Allergies Not on File Current Medications Not on file Active Problems Not on file Social History Tobacco Use Types Packs/Day Years Used Date Never Assessed Sex Assigned at Date Recorded Not on file Plan of Treatment Health Maintenance Due Date Last Done Comments Varicella Vaccines (1 of 1984 2 - 2-dose adolescent series) DTaP,Tdap,and Td Vaccines 1990 (1 - Tdap) CERVICAL CANCER SCREENING 1992 Influenza Vaccine (Season 07/30/2018 Ended) Results Not on filefrom Last 3 Months
--- NOTE | 2018-05-21 19:12 | ED General ---
General Chief Complaint: Exposure Stated Complaint: SOA Nursing Triage Note: PT BROUGHT TO ED VIA EMS. PT STATES SHE WAS IN HER HOME USING ANT SPRAY AND FELT SHE INHALED TOO MUCH OF IT AND BECAME SHORT OF BREATH. PT DOES HAVE HX OF ASTHMA. EMS STATES PT WAS GIVEN BREATHING TREATMENT ENROUTE. UPON ASSESSMENT PT WAS VERY TEARFUL AND BROKE DOWN CRYING. PT STATED SHE IS UNDER A GREAT DEAL OF PRESSURE RIGHT NOW. PT STATED HER DAUGHTER COMMITED SUICIED LAST YEAR, THEN HER FIANCE A COUPLE OF MONTHS LATER. PT'S STATES HER ROOMMATE ALSO JUST MOVED OUT AND SHE DOESN'T KNOW HOW SHE IS GOING TO MAKE ENDS MEET. PT STATES SHE IS NOT SLEEPING WELL AND IS AFRAID TO BE ALONE AT HOME. THIS NURSE ASKED THE PT IF SHE IS SUICIDAL. PT DENIES. Nursing Sepsis Screen: No Definite Risk Source of Information: Patient, Other (NO HISTORY OBTAINED, PT LEFT BEFORE I COULD ASK HER ANY QUESTIONS) History of Present Illness Date Seen by Provider: May 21, 2018 Time Seen by Provider: 19:00 Initial Comments PT ARRIVES VIA EMS FROM HOME LITERALLY SOON I WALKED IN THE DOOR, BEFORE I SAID ANYTHING TO PT, SHE STATES "I'M FINE. I PANIC'ED" "I DON'T NEED TO BE HERE" PT SIGNED OUT AMA--STATES SHE DOES NOT NEED TO BE SEEN PT ON PHONE, ANXIOUS, CONSTANT MOVEMENTS, SPEECH RAPID AND SOMEWHAT ERRATIC. Allergies and Home Medications Allergies Coded Allergies: No Known Drug Allergies (Verified , 10/31/07) Uncoded Allergies: NKDA (Allergy, Mild, 04/04/09) Home Medications Albuterol Sulfate 2.5 Mg/3 Ml Vial.neb, 2.5 MG IH Q4H Prescribed by: MISSY LUTHER on 10/19/17 1101 Amoxicillin/Potassium Clav 250 Mg/5 Ml Susp.recon, 2 TSP PO TID Prescribed by: GEE CAPONE on 04/29/18 2119 Azithromycin 250 Mg Tablet, 250 MG PO UD TAKE 2 TABLETS ON DAY ONE THEN TAKE 1 TABLET DAILY FOR FOUR MORE DAYS Prescribed by: MISSY LUTHER on 12/30/17 0741 Hyoscyamine Sulfate 0.125 Mg Tab.subl, 0.125 MG SL Q4H PRN for CRAMPS For bowel cramping and diarrhea Prescribed by: MISSY LUTHER on 12/19/172249 Pantoprazole Sodium 40 Mg Tablet.dr, 40 MG PO DAILY Prescribed by: GEE CAPONE on 04/29/182117 Prednisone 10 Mg Tab, 10 MG PO UD Use 4 tablets daily for 2 days, then 3 tabs daily for 2 days, then 2 tabs daily for 2 days, then one tab daily for 2 days Prescribed by: MISSY LUTHER on 10/19/17 110 Prednisone 20 Mg Tab, 20 MG PO DAILY Prescribed by: MISSY LUTHER on 12/30/17 0741 Patient Home Medication List Home Medication List Reviewed: No Review of Systems Constitutional: other (UNABLE TO OBTAIN) Past Ufeavzn-Tmrgjv-Znyuoz Hx Patient Social History Type Used: Cigarettes Recent Foreign Travel: No Contact w/Someone Who Travel: No Recent Infectious Disease Expo: No Recent Hopitalizations: No Seasonal Allergies Seasonal Allergies: No Past Medical History Surgeries: Yes (LITHOTRIPSY) Section, Gallbladder, Renal, Tonsillectomy Respiratory: Yes Asthma Cardiac: Yes High Cholesterol Neurological: No Reproductive Disorders: No Genitourinary: Yes Kidney Stones Gastrointestinal: Yes Gastroesophageal Reflux Musculoskeletal: Yes Degenerate Disk Disease Endocrine: Yes Hypothyroidsim, Diabetes, Non-Insulin dep HEENT: No Cancer: No Psychosocial: Yes Sleep Difficulties, Anxiety Integumentary: No Blood Disorders: No Physical Exam Vital Signs Vital Signs - First Documented 05/21/18 18:44 Temp 96.8 Pulse 93 Resp 19 B/P (MAP) 137/82 (100) O2 Delivery Room Air Capillary Refill : Less Than 3 Seconds General Appearance: Other (BEHAVIOR NOTED ABOVE. EXAM NOT DONE. PT AMBULATED OUT OF ER WITHOUT DIFFICULTY) Progress/Results/Core Measures Suspected Sepsis Recent Fever Within 48 Hours: No Infection Criteria Present: None New/Unexplained Altered Menta: No Sepsis Screen: No Definite Risk SIRS Temperature:96.8 Pulse: 93 Respiratory Rate: 19 Blood Pressure 137 /82 Mean: 100 Results/Orders Vital Signs/I&O 05/21/18 18:44 Temp 96.8 Pulse 93 Resp 19 B/P (MAP) 137/82 (100) O2 Delivery Room Air Capillary Refill : Less Than 3 Seconds Blood Pressure Mean: 100 Departure Impression Primary Impression: Left against medical advice Disposition: 07 AGAINST MEDICAL ADVICE Condition: Against Medical Advice Departure-Patient Inst. Referrals: [facility] (PCP/Family) Primary Care Physician AMBROSE WELLINGTON DO May 21, 2018 19:12
== END 2018-05-21 19:06 | disposition left against medical advice (07) ==
LOC: EDUNIT# 18:44 → ER 18:45
DX: R06.02 Shortness of breath (principal); E78.00 Pure hypercholesterolemia, unspecified; J45.909 Unspecified asthma, uncomplicated; E03.9 Hypothyroidism, unspecified; E11.9 Type 2 diabetes mellitus without complications; F41.9 Anxiety disorder, unspecified; Z87.442 Personal history of urinary calculi; Z87.59 Personal history of other complications of pregnancy, childbirth and the puerperium; Z90.89 Acquired absence of other organs; Z79.52 Long term (current) use of systemic steroids
CPT/HCPCS: 99283

== ENCOUNTER 2018-11-15 09:21 | Emergency (ER) | payer SELFPAY ==
[~2018-11-15] VITALS: Ht 160 cm; Wt 108.9 kg
[2018-11-15] MEDS ORDERED: KETOROLAC 60 MG/2 ML VIAL IM ONE (10:30)
[2018-11-15] MEDS ORDERED: ORPHENADRINE 60 MG/2 ML (NORFLEX) AMP IM ONE (10:30)
--- NOTE | 2018-11-15 10:35 | ED Fall/Injury ---
General Chief Complaint: Trauma-Non Activation Stated Complaint: FALL;BACK PAIN;R WRIST Nursing Triage Note: see trauma note Source: patient Exam Limitations: no limitations History of Present Illness Date Seen by Provider: Nov 15, 2018 Time Seen by Provider: 10:31 Initial Comments To ER with reports of having fallen down a flight of stairs this morning a few hours ago. She is unsure how she fell whether she slid down all of the stairs on her bottom or tumbled head over heels. She states that she did not hit her head and she denies any headache nausea or vomiting. She denies any chest abdomen or lower extremity pain. She does have right wrist pain and left lower back pain. The pain does not radiate. Location Injury Occurred: home Occurred: this morning Severity: moderate Injuries/Pain Location: upper extremity, back Context: slipped Loss of Consciousness: no loss of consciousness Modifying Factors: Worse With Jarring Associated Symptoms (Fall): No Abdominal Pain, No Chest Pain, No Confusion, No Dizziness, No Headache, No Lightheadedness, No Muscle Spasms, No Nausea/Vomiting , No Neck Pain, No Ringing in Ears, No Seizures Allergies and Home Medications Allergies Coded Allergies: No Known Drug Allergies (Verified , 10/31/07) Uncoded Allergies: NKDA (Allergy, Mild, 04/04/09) Home Medications Albuterol Sulfate 2.5 Mg/3 Ml Vial.neb, 2.5 MG IH Q4H Prescribed by: MISSY LUTHER on 10/19/17 1101 Amoxicillin/Potassium Clav 250 Mg/5 Ml Susp.recon, 2 TSP PO TID Prescribed by: GEE CAPONE on 04/29/182118 Azithromycin 250 Mg Tablet, 250 MG PO UD TAKE 2 TABLETS ON DAY ONE THEN TAKE 1 TABLET DAILY FOR FOUR MORE DAYS Prescribed by: MISSY LUTHER on 12/30/17 0741 Hyoscyamine Sulfate 0.125 Mg Tab.subl, 0.125 MG SL Q4H PRN for CRAMPS For bowel cramping and diarrhea Prescribed by: MISSY LUTHER on 12/19/17 2250 Pantoprazole Sodium 40 Mg Tablet.dr, 40 MG PO DAILY Prescribed by: GEE CAPONE on 04/29/182117 Prednisone 10 Mg Tab, 10 MG PO UD Use 4 tablets daily for 2 days, then 3 tabs daily for 2 days, then 2 tabs daily for 2 days, then one tab daily for 2 days Prescribed by: MISSY LUTHER on 10/19/17 1101 Prednisone 20 Mg Tab, 20 MG PO DAILY Prescribed by: MISSY LUTHER on 12/30/17 0741 Patient Home Medication List Home Medication List Reviewed: Yes Review of Systems Review of Systems Constitutional: see HPI Eyes: No Symptoms Reported Ears, Nose, Mouth, Throat: no symptoms reported Respiratory: no symptoms reported Cardiovascular: no symptoms reported Genitourinary: no symptoms reported Musculoskeletal: see HPI, joint pain; No muscle twitching, No muscle weakness, No neck pain Skin: no symptoms reported Psychiatric/Neurological: No Symptoms Reported Past Qyyqxeu-Hlllsl-Utkynt Hx Patient Social History Alcohol Use: Denies Use Recreational Drug Use: No Smoking Status: Current Everyday Smoker Type Used: Cigarettes Recent Foreign Travel: No Contact w/Someone Who Travel: No Recent Infectious Disease Expo: No Recent Hopitalizations: No Seasonal Allergies Seasonal Allergies: No Past Medical History Surgeries: Yes (LITHOTRIPSY) Section, Gallbladder, Renal, Tonsillectomy Respiratory: Yes Asthma Cardiac: Yes High Cholesterol Neurological: No Reproductive Disorders: No Genitourinary: Yes Kidney Stones Gastrointestinal: Yes Gastroesophageal Reflux Musculoskeletal: Yes Degenerate Disk Disease Endocrine: Yes Hypothyroidsim, Diabetes, Non-Insulin dep HEENT: No Cancer: No Psychosocial: Yes Sleep Difficulties, Anxiety Integumentary: No Blood Disorders: No Physical Exam Vital Signs Vital Signs - First Documented 11/15/18 10:22 Temp 98.2 Pulse 79 Resp 18 B/P (MAP) 168/67 (100) Pulse Ox 100 O2 Delivery Room Air Capillary Refill : Less Than 3 Seconds Height, Weight, BMI Height: 5'3.00" Weight: 240lbs. 14.4oz. [id number]; 48.00 BMI Method:Stated General Appearance: WD/WN, no apparent distress HEENT: PERRL/EOMI, normal ENT inspection Neck: non-tender, full range of motion Respiratory: no respiratory distress, no accessory muscle use Gastrointestinal: normal bowel sounds, non tender, soft Extremities: normal range of motion, non-tender, other (complains of pain to the right wrist there is no swelling ecchymosis or deformity. She is able to use the right hand to hold her purse.) Neurologic/Psychiatric: alert, normal mood/affect, oriented x 3 Skin: normal color, warm/dry Left low back over the left sacroiliac joint is tender to palpation but again no abrasion erythema or ecchymosis. Rudi Coma Score Best Eye Response: (4) Open Spontaneously Best Verbal Response: (5) Oriented Best Motor Response: (6) Obeys Commands Mitchell Total: 15 Progress/Results/Core Measures Results/Orders My Orders Orders - GEE CAPONE APRN Wrist, Right, 3 Views Or More (11/15/18 10:30) Lumbar Spine - 2-3 Views (11/15/18 10:30) Ketorolac Injection (Toradol Injection) (11/15/18 10:30) Orphenadrine Injection (Norflex Injectio (11/15/18 10:30) Vital Signs/I&O 11/15/18 10:22 Temp 98.2 Pulse 79 Resp 18 B/P (MAP) 168/67 (100) Pulse Ox 100 O2 Delivery Room Air Blood Pressure Mean: 100 Departure Impression Primary Impression: Fall Qualified Codes: W19.XXXA - Unspecified fall, initial encounter Additional Impressions: Wrist sprain Qualified Codes: S63.502A - Unspecified sprain of left wrist, initial encounter Contusion of lower back Qualified Codes: S30.0XXA - Contusion of lower back and pelvis, initial encounter Disposition: 01 HOME, SELF-CARE Condition: Stable Departure-Patient Inst. Decision time for Depature: 10:34 Referrals: [facility] (PCP/Family) Primary Care Physician Patient Instructions: Contusion (DC) Add. Discharge Instructions: 1. Use Tylenol and Motrin for pain control 2. Follow-up with your doctor later this week 3. Return to ER for any concerns. All discharge instructions reviewed with patient and/or family. Voiced understanding. GEE CAPONE APRN Nov 15, 2018 10:35
--- NOTE | 2018-11-15 11:12 | Diagnostic Imaging Report ---
INDICATION: Wrist pain post fall down steps. TECHNIQUE: 3 views of the right wrist CORRELATION STUDY: None FINDINGS: The osseous structures of the wrist have an unremarkable appearance. Alignment is anatomic. There is no acute bony abnormality. The visualized soft tissues appearing unremarkable. IMPRESSION: 1. Negative examination of the wrist. Dictated by: Dictated on workstation # [id number]
--- NOTE | 2018-11-15 11:20 | Diagnostic Imaging Report ---
INDICATION: Pain post fall down steps. TECHNIQUE: AP, Lateral and Spot imaging of the lumbar spine. CORRELATION STUDY: 10/02/2015. FINDINGS: Lumbar spinal alignment is relatively stable and anatomic. Lumbarization at the S1 level. Lumbar vertebral body heights appear unchanged. Mild asymmetric disc space narrowing, particularly at the L4-L5 and L5-S1 levels, with mild endplate lipping present. Cholecystectomy clips in the right upper quadrant. Calcific densities are noted in the midabdomen, suspect potential renal stones. IMPRESSION: 1. No radiographic evidence for acute bony abnormality of the lumbar spine. 2. Left-sided renal stones suspect. Dictated by: Dictated on workstation # [id number]
[2018-11-15 11:25] VITALS: BP 168/67
== END 2018-11-15 11:25 | disposition home or self-care (01) ==
LOC: EDUNIT# 09:21 → ER 09:23
DX: S63.502A Unspecified sprain of left wrist, initial encounter (principal); S30.0XXA Contusion of lower back and pelvis, initial encounter; J45.909 Unspecified asthma, uncomplicated; E78.00 Pure hypercholesterolemia, unspecified; K21.9 Gastro-esophageal reflux disease without esophagitis; E03.9 Hypothyroidism, unspecified; E11.9 Type 2 diabetes mellitus without complications; F41.9 Anxiety disorder, unspecified; R40.2142 Coma scale, eyes open, spontaneous, at arrival to emergency department; R40.2252 Coma scale, best verbal response, oriented, at arrival to emergency department; R40.2362 Coma scale, best motor response, obeys commands, at arrival to emergency department; Z87.442 Personal history of urinary calculi; Z79.51 Long term (current) use of inhaled steroids; Z79.52 Long term (current) use of systemic steroids; Z98.890 Other specified postprocedural states; Z90.89 Acquired absence of other organs; W10.8XXA Fall (on) (from) other stairs and steps, initial encounter
CPT/HCPCS: 72100; 73110

== ENCOUNTER 2019-06-26 21:15 | Emergency (ER) | payer SELFPAY ==
[~2019-06-26] VITALS: Ht 160 cm; Wt 108.9 kg
[2019-06-26] MEDS ORDERED: LORazepam INJ 2 MG/ML (ATIVAN) VIAL IVP ONE (21:45)
--- NOTE | 2019-06-26 21:51 | NUR ---
Patient refusing an IV at this time and is requesting lab draw her blood. Dr. Hall notified and lab notified to draw her blood.
--- NOTE | 2019-06-26 22:00 | NUR ---
Lab drawn by [facility].
[2019-06-26 22:11] LABS: BASOPHILS # (AUTO) 0.1 10^3/uL (0.0-0.1); BASOPHILS % (AUTO) 1 % (0-10); EOSINOPHILS # (AUTO) 0.4 10^3/uL (0.0-0.3); EOSINOPHILS % (AUTO) 3 % (0-10); HEMATOCRIT 35 % (35-52); HEMOGLOBIN 11.3 G/DL (11.5-16.0); LYMPHOCYTES # (AUTO) 2.3 X 10^3 (1.0-4.0); LYMPHOCYTES % (AUTO) 18 % (12-44); MEAN CORPUSCULAR HEMOGLOBIN 22 PG (25-34); MEAN CORPUSCULAR HGB CONC 32 G/DL (32-36); MEAN CORPUSCULAR VOLUME 69 FL (80-99); MEAN PLATELET VOLUME 10.7 FL (7.4-10.4); MONOCYTES # (AUTO) 1.4 X 10^3 (0.0-1.0); MONOCYTES % (AUTO) 11 % (0-12); NEUTROPHILS # (AUTO) 8.7 X 10^3 (1.8-7.8); NEUTROPHILS % (AUTO) 67 % (42-75); PLATELET COUNT 473 10^3/uL (130-400); RED CELL DISTRIBUTION WIDTH 18.7 % (10.0-14.5)
[2019-06-26 22:19] LABS: BILIRUBIN,URINE NEGATIVE (NEGATIVE); GLUCOSE, URINE (UA) 3+ (NEGATIVE); KETONES,URINE 1+ (NEGATIVE); LEUKOCYTE ESTERASE ,URINE 3+ (NEGATIVE); NITRITE,URINE NEGATIVE (NEGATIVE); PH,URINE 6 (5-9); PROTEIN,URINE 2+ (NEGATIVE); UROBILINOGEN,URINE 1 MG/DL (NORMAL)
[2019-06-26 22:26] LABS: COLOR,URINE YELLOW
[2019-06-26 22:27] LABS: CLARITY,URINE SL CLOUDY
[2019-06-26 22:29] LABS: BACTERIA,URINE MODERATE /HPF; RBC,URINE 0-2 /HPF; SQUAMOUS EPITHELIAL CELL,UR 25-50 /HPF; WBC,URINE 25-50 /HPF
[2019-06-26 22:33] LABS: ALBUMIN 3.3 GM/DL (3.2-4.5); BILIRUBIN,TOTAL 0.3 MG/DL (0.1-1.0); CALCIUM 9.6 MG/DL (8.5-10.1); CREATININE SERUM 1.15 MG/DL (0.60-1.30); POTASSIUM 3.6 MMOL/L (3.6-5.0); TOTAL PROTEIN 7.4 GM/DL (6.4-8.2)
[2019-06-26] MEDS ORDERED: FLUCONAZOLE 150 MG TABLET (ED ONLY) PO STA (22:38)
[2019-06-26] MEDS ORDERED: CEPH-507 PO (22:42)
[2019-06-26] MEDS ORDERED: ONDA4TAB11 SL (22:42)
[2019-06-26] MEDS ORDERED: FLUC150T PO (22:42)
[2019-06-26] MEDS ORDERED: cefTRIAXone 1,000 MG/2.86 ml vial (IM ONLY) IM ONE (22:45)
[2019-06-26] MEDS ORDERED: LIDOCAINE 1% INJ 20 ML 20 ML VIAL INJ ONE (22:45)
--- NOTE | 2019-06-26 22:46 | ED General ---
General Chief Complaint: Fever-Adult/Adol Stated Complaint: FEVER Nursing Triage Note: Patient ambulatory to ER with complaint of intermittent fever since Wednesday. Patient also complaining of body aches and lower left abdominal pain that is intermittent. Patient states today she began to have sores present in her mouth today. Patient states she was constipated but that has improved since taking stool softeners. Nursing Sepsis Screen: Possible Sepsis Risk Source of Information: Patient Exam Limitations: No Limitations History of Present Illness Date Seen by Provider: Jun 26, 2019 Time Seen by Provider: 21:25 Initial Comments This 48-year-old woman presents to the emergency room with complaints of left lateral upper abdominal pain that started about 5 days ago. She had intermittent fevers for several days and eventually dissipated. She has had generalized aching and fatigue as well. Today she developed cracking at the corners of her mouth. Fever came back today. She also has vomited a few times. She was constipated before treating that. She is diabetic but does not check her blood sugars. She denies cough. Allergies and Home Medications Allergies Coded Allergies: No Known Drug Allergies (Verified , 10/31/07) Uncoded Allergies: NKDA (Allergy, Mild, 04/04/09) Home Medications Albuterol Sulfate 2.5 Mg/3 Ml Vial.neb, 2.5 MG IH Q4H Prescribed by: MISSY LUTHER on 10/19/17 1101 Amoxicillin/Potassium Clav 250 Mg/5 Ml Susp.recon, 2 TSP PO TID Prescribed by: GEE CAPONE on 04/29/18 2119 Azithromycin 250 Mg Tablet, 250 MG PO UD TAKE 2 TABLETS ON DAY ONE THEN TAKE 1 TABLET DAILY FOR FOUR MORE DAYS Prescribed by: MISSY LUTHER on 12/30/17 0741 Cephalexin 500 Mg Capsule, 500 MG PO TID Prescribed by: MISSY LUTHER on 06/26/19 224 Fluconazole 150 Mg Tablet, 150 MG PO ONCE Prescribed by: MISSY LUTHER on 06/26/19 224 Hyoscyamine Sulfate 0.125 Mg Tab.subl, 0.125 MG SL Q4H PRN for CRAMPS For bowel cramping and diarrhea Prescribed by: MISSY LUTHER on 12/19/17 2250 Ondansetron 4 Mg Tab.rapdis, 4 MG SL Q4H PRN for NAUSEA/VOMITING-1ST LINE Prescribed by: MISSY LUTHER on 06/26/19 2242 Pantoprazole Sodium 40 Mg Tablet.dr, 40 MG PO DAILY Prescribed by: GEE CAPONE on 04/29/182117 Prednisone 10 Mg Tab, 10 MG PO UD Use 4 tablets daily for 2 days, then 3 tabs daily for 2 days, then 2 tabs daily for 2 days, then one tab daily for 2 days Prescribed by: MISSY LUTHER on 10/19/17 110 Prednisone 20 Mg Tab, 20 MG PO DAILY Prescribed by: MISSY LUTHER on 12/30/17 0741 Patient Home Medication List Home Medication List Reviewed: Yes Review of Systems Review of Systems Constitutional: see HPI EENTM: see HPI Respiratory: no symptoms reported Cardiovascular: no symptoms reported Gastrointestinal: see HPI Genitourinary: no symptoms reported : No Musculoskeletal: see HPI Skin: no symptoms reported Psychiatric/Neurological: No Symptoms Reported Hematologic/Lymphatic: No Symptoms Reported Immunological/Allergic: no symptoms reported Past Mwvcisw-Dggwgm-Ezefis Hx Patient Social History Alcohol Use: Past History Recreational Drug Use: No Smoking Status: Current Everyday Smoker Type Used: Cigarettes 2nd Hand Smoke Exposure: Yes Recent Foreign Travel: No Contact w/Someone Who Travel: No Recent Infectious Disease Expo: No Recent Hopitalizations: No Physical Abuse: No Sexual Abuse: No Mistreated: No Fear: No Immunizations Up To Date PED Vaccines UTD: Yes Seasonal Allergies Seasonal Allergies: No Past Medical History Surgeries: Yes (LITHOTRIPSY) Section, Gallbladder, Renal, Tonsillectomy Respiratory: Yes Asthma Cardiac: Yes High Cholesterol Neurological: No : No Last Menstrual Period: Jun 12, 2019 Reproductive Disorders: No Genitourinary: Yes Kidney Stones Gastrointestinal: Yes Gastroesophageal Reflux Musculoskeletal: Yes Degenerate Disk Disease Endocrine: Yes Hypothyroidsim, Diabetes, Non-Insulin dep HEENT: No Cancer: No Psychosocial: Yes Sleep Difficulties, Anxiety Integumentary: No Blood Disorders: No Physical Exam Vital Signs Vital Signs - First Documented 06/26/19 21:23 Temp 96.7 Pulse 102 Resp 18 B/P (MAP) 141/75 (97) Pulse Ox 98 O2 Delivery Room Air Capillary Refill : Less Than 3 Seconds Height, Weight, BMI Height: 5'3.00" Weight: 240lbs. 14.4oz. 108.157434zv; 48.00 BMI Method:Stated General Appearance: No Apparent Distress, Obese HEENT: PERRL/EOMI, Normal ENT Inspection, Pharynx Normal, Other (cracking at the corners of her mouth) Neck: Normal Inspection Respiratory: Lungs Clear, Normal Breath Sounds, No Accessory Muscle Use, No Respiratory Distress Cardiovascular: Regular Rate, Rhythm, No Edema, No Murmur Gastrointestinal: Normal Bowel Sounds, Soft, Tenderness (minimal on the left upper quadrant) Extremity: Normal Inspection, No Pedal Edema Neurologic/Psychiatric: Alert, Oriented x3, No Motor/Sensory Deficits, Normal Mood/Affect, erp technical lead II-XII Norm as Tested Skin: Normal Color, Warm/Dry Progress/Results/Core Measures Suspected Sepsis Recent Fever Within 48 Hours: Yes Infection Criteria Present: Suspected New Infection New/Unexplained Altered Menta: No Sepsis Screen: Possible Sepsis Risk SIRS Temperature:96.7 Pulse: 102 Respiratory Rate: 18 Laboratory Tests 06/26/19 22:05: White Blood Count 13.0H Blood Pressure 141 /75 Mean: 97 Laboratory Tests 06/26/19 22:05: Creatinine 1.15, Platelet Count 473H, Total Bilirubin 0.3 Results/Orders Lab Results Laboratory Tests Test 06/26/19 22:05 06/26/19 22:13 Range/Units White Blood Count 13.0 H 4.3-11.0 10^3/uL Red Blood Count 5.04 4.35-5.85 10^6/uL Hemoglobin 11.3 L 11.5-16.0 G/DL Hematocrit 35 35-52 % Mean Corpuscular Volume 69 L 80-99 FL Mean Corpuscular Hemoglobin 22 L 25-34 PG Mean Corpuscular Hemoglobin Concent 32 32-36 G/DL Red Cell Distribution Width 18.7 H 10.0-14.5 % Platelet Count 473 H 130-400 10^3/uL Mean Platelet Volume 10.7 H 7.4-10.4 FL Neutrophils (%) (Auto) 67 42-75 % Lymphocytes (%) (Auto) 18 12-44 % Monocytes (%) (Auto) 11 0-12 % Eosinophils (%) (Auto) 3 0-10 % Basophils (%) (Auto) 1 0-10 % Neutrophils # (Auto) 8.7 H 1.8-7.8 X 10^3 Lymphocytes # (Auto) 2.3 1.0-4.0 X 10^3 Monocytes # (Auto) 1.4 H 0.0-1.0 X 10^3 Eosinophils # (Auto) 0.4 H 0.0-0.3 10^3/uL Basophils # (Auto) 0.1 0.0-0.1 10^3/uL Sodium Level 136 135-145 MMOL/L Potassium Level 3.6 3.6-5.0 MMOL/L Chloride Level 100 98-107 MMOL/L Carbon Dioxide Level 23 21-32 MMOL/L Anion Gap 13 5-14 MMOL/L Blood Urea Nitrogen 11 7-18 MG/DL Creatinine 1.15 0.60-1.30 MG/DL Estimat Glomerular Filtration Rate 51 BUN/Creatinine Ratio 10 Glucose Level 227 H 70-105 MG/DL Calcium Level 9.6 8.5-10.1 MG/DL Corrected Calcium 10.2 H 8.5-10.1 MG/DL Total Bilirubin 0.3 0.1-1.0 MG/DL Aspartate Amino Transf (AST/SGOT) 19 5-34 U/L Alanine Aminotransferase (ALT/SGPT) 28 0-55 U/L Alkaline Phosphatase 171 H 40-136 U/L Total Protein 7.4 6.4-8.2 GM/DL Albumin 3.3 3.2-4.5 GM/DL Urine Color YELLOW Urine Clarity SL CLOUDY Urine pH 6 5-9 Urine Specific [place] 1.020 1.016-1.022 Urine Protein 2+ H NEGATIVE Urine Glucose (UA) 3+ H NEGATIVE Urine Ketones 1+ H NEGATIVE Urine Nitrite NEGATIVE NEGATIVE Urine Bilirubin NEGATIVE NEGATIVE Urine Urobilinogen 1 NORMAL MG/DL Urine Leukocyte Esterase 3+ H NEGATIVE Urine RBC (Auto) 2+ H NEGATIVE Urine RBC 0-2 /HPF Urine WBC 25-50 H /HPF Urine Squamous Epithelial Cells 25-50 H /HPF Urine Crystals NONE /LPF Urine Bacteria MODERATE H /HPF Urine Casts NONE /LPF Urine Mucus MODERATE H /LPF Urine Culture Indicated YES My Orders Orders - MISSY WILKERSON MD Lorazepam Injection (Ativan Injection) (06/26/19 21:45) Cbc With Automated Diff (06/26/19 21:44) Comprehensive Metabolic Panel (06/26/19 21:44) Ua Culture If Indicated (06/26/19 21:44) Ed Iv/Invasive Line Start (06/26/19 21:44) Chest Pa/Lat (2 View) (06/26/19 21:44) Urine Culture (06/26/19 22:13) Ceftriaxone For Im Use (Rocephin For Im (06/26/19 22:45) Lidocaine 1% Inj 20 Ml (Xylocaine 1% Inj (06/26/19 22:45) Fluconazole Tablet (Ed Only) (Diflucan T (06/26/19 22:38) Medications Given in ED Current Medications Medications Dose Ordered Sig/Luis Route Start Time Stop Time Status Last Admin Dose Admin Ceftriaxone Sodium 1,000 mg ONCE ONCE IM 06/26/19 22:45 06/26/19 22:46 DC 06/26/19 23:07 1,000 MG Lidocaine HCl 2.1 ml ONCE ONCE INJ 06/26/19 22:45 06/26/19 22:46 DC 06/26/19 23:07 2.1 ML Vital Signs/I&O 06/26/19 06/26/19 21:23 23:08 Temp 96.7 96.7 Pulse 102 102 Resp 18 18 B/P (MAP) 141/75 (97) 141/75 (97) Pulse Ox 98 98 O2 Delivery Room Air Capillary Refill : Less Than 3 Seconds Blood Pressure Mean: 97 Progress Note : Progress Note Urinary tract infection was identified. Rocephin was given for treatment. Diflucan was also given as patient was concerned that the cracking at the corners of her mouth and some discomfort on her tongue may be related to yeast. She was encouraged to control her blood sugars tightly. Departure Impression Primary Impression: Urinary tract infection Qualified Codes: N39.0 - Urinary tract infection, site not specified Additional Impressions: Nausea and vomiting Qualified Codes: R11.2 - Nausea with vomiting, unspecified Left flank pain Poorly controlled type 2 diabetes mellitus Lip lesion Disposition: 01 HOME, SELF-CARE Condition: Improved Departure-Patient Inst. Decision time for Depature: 22:40 Referrals: [facility] (PCP/Family) Primary Care Physician Patient Instructions: Urinary Tract Infection, Adult (DC) Add. Discharge Instructions: Drink plenty of water. Complete your antibiotic as prescribed. Eat a diet very low in sugars and carbohydrates to help control your sugars. Follow-up with your primary care provider in 2 or 3 days to review urine culture results. You may use Zofran as prescribed for nausea and vomiting. Use your dose of Diflucan in 3 or 4 days if you still have concerns about thr ush. Return to care if you have worsening symptoms despite treatment. All discharge instructions reviewed with patient and/or family. Voiced understanding. Scripts Ondansetron (Ondansetron Odt) 4 Mg Tab.rapdis 4 MG SL Q4H PRN for NAUSEA/VOMITING-1ST LINE, #10 TAB Prov: MISSY WILKERSON MD 06/26/19 Fluconazole (Diflucan) 150 Mg Tablet 150 MG PO ONCE, #1 TAB Prov: MISSY WILKERSON MD 06/26/19 Cephalexin (Keflex) 500 Mg Capsule 500 MG PO TID, #20 CAP Prov: MISSY WILKERSON MD 06/26/19 Copy Copies To 1: PA BERGERON JOSHUA T MD Jun 26, 2019 22:46
[2019-06-26 23:08] VITALS: BP 141/75
--- NOTE | 2019-06-27 06:40 | Diagnostic Imaging Report ---
INDICATION: Coughing fever COMPARISON: 12/30/2017 FINDINGS: Frontal and lateral views the chest demonstrate clear lungs bilaterally. The heart size is normal. There is no pneumothorax. Osseous structures are normal. IMPRESSION: No acute findings. Normal chest. Dictated by: Dictated on workstation # [id number]
== END 2019-06-26 23:09 | disposition home or self-care (01) ==
LOC: EDUNIT# 21:15 → ER 21:17
DX: N39.0 Urinary tract infection, site not specified (principal); E11.9 Type 2 diabetes mellitus without complications; K13.0 Diseases of lips; J45.909 Unspecified asthma, uncomplicated; F41.9 Anxiety disorder, unspecified; E78.00 Pure hypercholesterolemia, unspecified; K21.9 Gastro-esophageal reflux disease without esophagitis; E03.9 Hypothyroidism, unspecified; F17.210 Nicotine dependence, cigarettes, uncomplicated; Z87.442 Personal history of urinary calculi; Z90.89 Acquired absence of other organs; Z79.52 Long term (current) use of systemic steroids
CPT/HCPCS: 36415; 71046; 80053; 81000; 85025; 87077; 87088; 87186; 96372

== ENCOUNTER 2019-08-19 23:40 | Emergency (ER) | payer OTHER, SELFPAY | END 2019-08-20 04:03 | disposition home or self-care (01) | LOC: ER 23:40 ==

== ENCOUNTER 2019-10-22 21:19 | Emergency (ER) | payer SELFPAY ==
[~2019-10-22] VITALS: Ht 160 cm; Wt 85.0 kg
[~2019-10-22 21:19] MED LIST changes: +CEPH-507 PO; +FLUC150T PO; +FLUC200T PO; +MICO45CR71 VG; +MUPI1OIN6 TP; +ONDA4TAB11 SL; +SULF1TAB35 PO
[2019-10-22] MEDS ORDERED: PROCHLORPERAZINE 10 MG/2ML INJ (COMPAZINE) IM ONE (22:30)
[2019-10-22] MEDS ORDERED: diphenhydrAMINE 50 MG/ML INJ (BENADRYL) IVP ONE (22:30)
[2019-10-22] MEDS ORDERED: KETOROLAC 60 MG/2 ML VIAL IM ONE (22:30)
--- NOTE | 2019-10-22 22:40 | ED Headache ---
General Chief Complaint: Head/Cervical Problems Stated Complaint: MIRGAINE, VOMITING Nursing Triage Note: AMBULATORY TO ED ROOM 10 WITH C/O MIGRAINE HEADACHE SINCE 10/07/19. NAUSEA. LAST TOOK IBUPROFEN AT 0600. Nursing Sepsis Screen: No Definite Risk Source: patient Exam Limitations: no limitations History of Present Illness Date Seen by Provider: Oct 22, 2019 Time Seen by Provider: 22:38 Initial Comments To ER with a global headache since 10/07/19 no history of headaches. Recent URI that has resolved, no fever no chills no neck stiffness Timing/Duration: other Severity/Quality: constant Location: frontal Prior Headaches/Recent Trauma: no recent headache/trauma Associated Symptoms: denies symptoms Allergies and Home Medications Allergies Coded Allergies: No Known Drug Allergies (Verified , 10/31/07) Uncoded Allergies: NKDA (Allergy, Mild, 04/04/09) Home Medications Albuterol Sulfate 2.5 Mg/3 Ml Vial.neb, 2.5 MG IH Q4H Prescribed by: MISSY LUTHER on 10/19/17 1101 Amoxicillin/Potassium Clav 250 Mg/5 Ml Susp.recon, 2 TSP PO TID Prescribed by: GEE CAPONE on 04/29/18 211 Azithromycin 250 Mg Tablet, 250 MG PO UD TAKE 2 TABLETS ON DAY ONE THEN TAKE 1 TABLET DAILY FOR FOUR MORE DAYS Prescribed by: MISSY LUTHER on 12/30/17 0741 Cephalexin 500 Mg Capsule, 500 MG PO TID Prescribed by: MISSY LUTHER on 06/26/19 224 Fluconazole 150 Mg Tablet, 150 MG PO ONCE Prescribed by: MISSY LUTHER on 06/26/192241 Fluconazole 200 Mg Tablet, 200 MG PO DAILY Prescribed by: AMBROSE WELLINGTON on 08/20/19258 Hyoscyamine Sulfate 0.125 Mg Tab.subl, 0.125 MG SL Q4H PRN for CRAMPS For bowel cramping and diarrhea Prescribed by: MISSY LUTHER on 12/19/172249 Miconazole Nitrate 45 Gm Cream.appl, 45 GM VG HS Prescribed by: AMBROSE WELLINGTON on 08/20/19258 Mupirocin 1 Gm Oin.pf.yonny, 1 GM TP BID Prescribed by: AMBROSE WELLINGTON on 08/20/19258 Ondansetron 4 Mg Tab.rapdis, 4 MG SL Q4H PRN for NAUSEA/VOMITING-1ST LINE Prescribed by: MISSY LUTHER on 06/26/19 2242 Pantoprazole Sodium 40 Mg Tablet.dr, 40 MG PO DAILY Prescribed by: GEE CAPONE on 04/29/182117 Prednisone 10 Mg Tab, 10 MG PO UD Use 4 tablets daily for 2 days, then 3 tabs daily for 2 days, then 2 tabs daily for 2 days, then one tab daily for 2 days Prescribed by: MISSY LUTHER on 10/19/17 1101 Prednisone 20 Mg Tab, 20 MG PO DAILY Prescribed by: MISSY LUTHER on 12/30/17 0741 Sulfamethoxazole/Trimethoprim 1 Each Tablet, 1 EACH PO BID Prescribed by: AMBROSE WELLINGTON on 08/20/19 025 Patient Home Medication List Home Medication List Reviewed: Yes Review of Systems Review of Systems Constitutional: see HPI Eyes: No Symptoms Reported Ears, Nose, Mouth, Throat: no symptoms reported Respiratory: no symptoms reported Cardiovascular: no symptoms reported Genitourinary: no symptoms reported Musculoskeletal: no symptoms reported Skin: no symptoms reported Psychiatric/Neurological: See HPI, Headache Past Fabjolk-Ldahuc-Ivcgeb Hx Patient Social History Alcohol Use: Denies Use Recreational Drug Use: Yes Drug of Choice: MARIJUANA Type Used: Cigarettes 2nd Hand Smoke Exposure: Yes Recent Foreign Travel: No Contact w/Someone Who Travel: No Recent Infectious Disease Expo: No Recent Hopitalizations: No Physical Abuse: No Sexual Abuse: No Mistreated: No Fear: No Immunizations Up To Date PED Vaccines UTD: Yes Seasonal Allergies Seasonal Allergies: No Past Medical History Surgeries: Yes (LITHOTRIPSY) Section, Gallbladder, Renal, Tonsillectomy Respiratory: Yes Asthma Cardiac: Yes High Cholesterol Neurological: No Reproductive Disorders: No Genitourinary: Yes Bladder Infection, Kidney Stones Gastrointestinal: Yes Gastroesophageal Reflux Musculoskeletal: Yes Degenerate Disk Disease, Chronic Back Pain Endocrine: Yes (EXTREME NON-COMPLIANCE; MORBID OBESITY) Hypothyroidsim, Diabetes, Non-Insulin dep HEENT: No Cancer: No Psychosocial: Yes Sleep Difficulties, Anxiety Integumentary: Yes (CANDIDIASIS, SKIN ABSCESSES/CELLULITIS) Blood Disorders: No Physical Exam Vital Signs Vital Signs - First Documented 10/22/19 21:55 Temp 37.0 Pulse 98 Resp 18 B/P (MAP) 135/95 (108) Capillary Refill : Less Than 3 Seconds Height, Weight, BMI Height: 5'3.00" Weight: 240lbs. 14.4oz. 108.535565re; 33.00 BMI Method:Stated General Appearance: WD/WN, no apparent distress HEENT: PERRL/EOMI, normal ENT inspection, TMs normal Neck: non-tender, full range of motion Respiratory: lungs clear, normal breath sounds, no respiratory distress, no accessory muscle use Extremities: normal range of motion, non-tender Psychiatric: alert, oriented x 3 Crainal Nerves: normal hearing, normal speech, PERRL Coordination/Gait: normal gait Skin: normal color, warm/dry Progress/Results/Core Measures Results/Orders My Orders Orders - GEE CAPONE APRN Ketorolac Injection (Toradol Injection) (10/22/19 22:30) Prochlorperazine Injection (Compazine In (10/22/19 22:30) Diphenhydramine Injection (Benadryl Inje (10/22/19 22:30) Ct Head Wo (10/22/19 22:30) Medications Given in ED Current Medications Medications Dose Ordered Sig/Luis Route Start Time Stop Time Status Last Admin Dose Admin Diphenhydramine HCl 50 mg ONCE ONCE IVP 10/22/19 22:30 10/22/19 22:31 DC 10/22/19 22:34 50 MG Ketorolac Tromethamine 60 mg ONCE ONCE IM 10/22/19 22:30 10/22/19 22:31 DC 10/22/19 22:35 60 MG Prochlorperazine Edisylate 10 mg ONCE ONCE IM 10/22/19 22:30 10/22/19 22:31 DC 10/22/19 22:35 10 MG Vital Signs/I&O 10/22/19 21:55 Temp 37.0 Pulse 98 Resp 18 B/P (MAP) 135/95 (108) Blood Pressure Mean: 108 POS Departure Impression Primary Impression: Headache Qualified Codes: R51 - Headache Disposition: 01 HOME, SELF-CARE Condition: Stable Departure-Patient Inst. Decision time for Depature: 23:00 Referrals: [facility] (PCP/Family) Primary Care Physician Patient Instructions: Headache, Adult Add. Discharge Instructions: 1. Return to ER for any concerns 2. Follow-up with your doctor this week for recheck. 3. All discharge instructions reviewed with patient and/or family. Voiced understanding. Scripts Butalb/Acetaminophen/Caffeine (Mcpflc-Vygsmcej-Skzt 50-300-40) 1 Each Capsule 1 EACH PO Q4H PRN for headache, #10 CAP Prov: GEE CAPONE APRN 10/22/19 GEE CAPONE APRN Oct 22, 2019 22:40 POS
[2019-10-22] MEDS ORDERED: BUTA1CAP41 PO (23:19)
[2019-10-22 23:20] VITALS: BP 132/94
--- NOTE | 2019-10-23 07:27 | Diagnostic Imaging Report ---
PROCEDURE: CT head without contrast. TECHNIQUE: Multiple contiguous axial images were obtained through the brain without the use of intravenous contrast. Auto Exposure Controls were utilized during the CT exam to meet ALARA standards for radiation dose reduction. INDICATION: Migraine headache. Comparison: None available. Findings: No hyperdense hemorrhage or space-occupying mass. No hydrocephalus or midline shift. The basilar cisterns are normal. Silva-white matter differentiation is well preserved. The mastoid air cells are clear. Patchy mucosal thickening within ethmoid air cells. Otherwise, paranasal sinuses are clear. No focal osseous abnormality of the calvarium. Impression: 1. No acute intracranial process. 2. Findings are in agreement with the preliminary report. Dictated by: Dictated on workstation # [id number]
== END 2019-10-22 23:21 | disposition home or self-care (01) ==
LOC: EDUNIT# 21:19 → ER 21:20
DX: R51 Headache (principal); J45.909 Unspecified asthma, uncomplicated; E11.9 Type 2 diabetes mellitus without complications; F41.9 Anxiety disorder, unspecified; E78.00 Pure hypercholesterolemia, unspecified; K21.9 Gastro-esophageal reflux disease without esophagitis; E03.9 Hypothyroidism, unspecified; E66.01 Morbid (severe) obesity due to excess calories; Z87.442 Personal history of urinary calculi; Z79.52 Long term (current) use of systemic steroids; Z77.22 Contact with and (suspected) exposure to environmental tobacco smoke (acute) (chronic); Z90.89 Acquired absence of other organs; Z68.33 Body mass index [BMI] 33.0-33.9, adult
CPT/HCPCS: 70450; 96372; 96374

== ENCOUNTER → 2021-06-10 | Outpatient (CLI) | payer OTHER ==
[~2021-06-10] MED LIST changes: +BUTA1CAP41 PO; +RT-ALBUTEROL SULF 2.5 MG/3 ML PRE-MIX VIAL INH ONE; -SULF1TAB35 PO; +SULF1TAB38 PO
== END ==
LOC: MERGE 08:00 → RT 08:00
PROVIDERS: ATTEND Anesthesiology Pain Medicine
DX: Z02.71 Encounter for disability determination (principal); J44.9 Chronic obstructive pulmonary disease, unspecified
CPT/HCPCS: 94060; 94640

== ENCOUNTER 2022-03-28 23:50 | Emergency (ER) | payer SELFPAY ==
[~2022-03-28 23:50] MED LIST changes: -RT-ALBUTEROL SULF 2.5 MG/3 ML PRE-MIX VIAL INH ONE
--- NOTE | 2022-03-28 23:57 | ED GI ---
General Chief Complaint: General Problems/Pain Stated Complaint: SYNCOPE N/V Source of Information: Patient Exam Limitations: No Limitations History of Present Illness Date Seen by Provider: Mar 28, 2022 Time Seen by Provider: 23:39 Initial Comments Patient presents ER by EMS from home with chief complaint she had an episode of nausea and vomiting after dinner. She ate about an hour prior to arrival. Her grandson and ate the same food and had no problems. She is not having any fevers or chills. She does not have frequent nausea or vomiting or gastroparesis. She does have a history of diabetes but not on insulin. She is not having any abdominal discomfort. She is no longer feeling nauseated. EMS attempted x1 on an IV unsuccessfully. No medications were given on route. Blood sugar is 191. Vital signs are normal. Patient was a little unstable on her feet per EMS and states she smokes some THC through a vape pen and half an hour prior to arrival Allergies and Home Medications Allergies Coded Allergies: No Known Drug Allergies (Verified , 10/31/07) Uncoded Allergies: NKDA (Allergy, Mild, 04/04/09) Patient Home Medication List Home Medication List Reviewed: Yes Albuterol Sulfate (Albuterol Sulfate) 2.5 Mg/3 Ml Vial.neb, 2.5 MG IH Q4H Prescribed by: MISSY LUTHER on 10/19/17 1101 Amoxicillin/Potassium Clav (Augmentin 250-62.5 mg/5 ml) 250 Mg/5 Ml Susp.recon, 2 TSP PO TID Prescribed by: GEE CAPONE on 04/29/182118 Azithromycin (Azithromycin) 250 Mg Tablet, 250 MG PO UD Prescribed by: MISSY LUTHER on 12/30/17 0741 Butalb/Acetaminophen/Caffeine (Trbkmu-Iuyuckon-Ivkv 50-300-40) 1 Each Capsule, 1 EACH PO Q4H PRN for headache Prescribed by: GEE CAPONE on 10/22/19 231 Cephalexin (Keflex) 500 Mg Capsule, 500 MG PO TID Prescribed by: MISSY LUTHER on 06/26/192241 Fluconazole (Diflucan) 150 Mg Tablet, 150 MG PO ONCE Prescribed by: MISSY LUTHRE on 06/26/192241 Fluconazole (Diflucan) 200 Mg Tablet, 200 MG PO DAILY Prescribed by: AMBROSE WELLINGTON on 08/20/19 025 Hyoscyamine Sulfate (Levsin-Sl) 0.125 Mg Tab.subl, 0.125 MG SL Q4H PRN for CRAMPS Prescribed by: MISSY LUTHER on 12/19/17 225 Ipratropium/Albuterol Sulfate (Combivent Inhaler) 14.7 Gm Aer.w.adap, (Reported) Entered as Reported by: TRACEY MONTEMAYOR on 08/15/09 182 Miconazole Nitrate (Monistat 7) 45 Gm Cream.appl, 45 GM VG HS Prescribed by: AMBROSE WELLINGTON on 08/20/19258 Mupirocin (Mupirocin) 1 Gm Oin.pf.yonny, 1 GM TP BID Prescribed by: AMBROSE WELLINGTON on 08/20/19258 Ondansetron (Ondansetron Odt) 4 Mg Tab.rapdis, 4 MG SL Q4H PRN for NAUSEA/VOMITING-1ST LINE Prescribed by: MISSY LUTHER on 06/26/19 224 Pantoprazole Sodium (Protonix) 40 Mg Tablet.dr, 40 MG PO DAILY Prescribed by: GEE CAPONE on 04/29/18 2118 Prednisone (Prednisone) 10 Mg Tab, 10 MG PO UD Prescribed by: MISSY LUTHER on 10/19/17 1101 Prednisone (Prednisone) 20 Mg Tab, 20 MG PO DAILY Prescribed by: MISSY LUTHER on 12/30/17 0741 Sulfamethoxazole/Trimethoprim (Bactrim Ds Tablet) 1 Each Tablet, 1 EACH PO BID Prescribed by: AMBROSE WELLINGTON on 08/20/19258 Review of Systems Review of Systems Constitutional: No chills, No diaphoresis EENTM: No Blurred Vision, No Double Vision Respiratory: Denies Cough, Denies Shortness of Air Cardiovascular: Denies Chest Pain, Denies Lightheadedness Gastrointestinal: Denies Constipated, Denies Diarrhea Genitourinary: Denies Discharge, Denies Drainage Musculoskeletal: No back pain, No joint pain Skin: No pruritus, No rash Psychiatric/Neurological: Denies Headache, Denies Numbness All Other Systems Reviewed Negative Unless Noted: Yes Past Phmnady-Bmcali-Ytmuyi Hx Patient Social History Tobacco Use?: No Immunizations Up To Date PED Vaccines UTD: Yes Seasonal Allergies Seasonal Allergies: No Past Medical History Surgeries: Yes (LITHOTRIPSY) Section, Gallbladder, Renal, Tonsillectomy Respiratory: Yes Asthma Cardiac: Yes High Cholesterol Neurological: No Reproductive Disorders: No Genitourinary: Yes Bladder Infection, Kidney Stones Gastrointestinal: Yes Gastroesophageal Reflux Musculoskeletal: Yes Degenerate Disk Disease, Chronic Back Pain Endocrine: Yes (EXTREME NON-COMPLIANCE; MORBID OBESITY) Hypothyroidsim, Diabetes, Non-Insulin dep HEENT: No Cancer: No Psychosocial: Yes Sleep Difficulties, Anxiety Integumentary: Yes (CANDIDIASIS, SKIN ABSCESSES/CELLULITIS) Blood Disorders: No Physical Exam Vital Signs Vital Signs - First Documented Capillary Refill : Height/Weight/BMI Height: 5'3.00" Weight: 240lbs. 14.4oz. 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 Well-appearing. No surgical abdominal exam. Plan to check some basic labs and urinalysis Progress Note #2: Time: 03:11 Progress Note When staff went in to check her labs the patient says she is no longer having any nausea and does not feel like she wants to be here anymore or participate in any work-up. She was given a AMA form and left prior to this provider having a chance to talk to her. Departure Impression Primary Impression: Nausea & vomiting Qualified Codes: R11.2 - Nausea with vomiting, unspecified Disposition: AGAINST MEDICAL ADVICE Condition: Against Medical Advice Departure-Patient Inst. Decision time for Depature: 00:00 Referrals: [facility] (PCP/Family) Primary Care Physician Patient Instructions: Nausea and Vomiting, Adult (DC) Add. Discharge Instructions: Zofran 1 tablet every 6 hours as needed for nausea or vomiting. Return to the ER for worsening symptoms. All discharge instructions reviewed with patient and/or family. Voiced understanding. Scripts Ondansetron (Ondansetron Odt) 4 Mg Tab.rapdis 4 MG PO Q6H PRN for NAUSEA/VOMITING, #8 TAB 0 Refills Prov: LAURIE ARORA 03/29/22 LAURIE ARORA Mar 28, 2022 23:57
[2022-03-29 00:16] VITALS: BP 122/68
[2022-03-29] MEDS ORDERED: ONDA4TAB11 PO (03:13)
== END 2022-03-29 00:16 | disposition left against medical advice (07) ==
LOC: EDUNIT# 23:50 → ER 23:51
DX: R11.2 Nausea with vomiting, unspecified (principal); E11.9 Type 2 diabetes mellitus without complications; F17.290 Nicotine dependence, other tobacco product, uncomplicated
CPT/HCPCS: 99283

== ENCOUNTER 2022-05-04 20:44 | Emergency (ER) | payer SELFPAY ==
[~2022-05-04] VITALS: Ht 160 cm; Wt 108.0 kg
[~2022-05-04 20:44] MED LIST changes: +ONDA4TAB11 PO
[2022-05-04 21:57] VITALS: BP 120/82
== END 2022-05-04 23:32 | disposition left against medical advice (07) ==
LOC: EDUNIT# 20:44 → ER 20:47
DX: J06.9 Acute upper respiratory infection, unspecified (principal); J45.909 Unspecified asthma, uncomplicated; F17.210 Nicotine dependence, cigarettes, uncomplicated; F17.290 Nicotine dependence, other tobacco product, uncomplicated; Z20.822 Contact with and (suspected) exposure to COVID-19; Z79.52 Long term (current) use of systemic steroids; Z79.899 Other long term (current) drug therapy
CPT/HCPCS: 87636; 99285

== ENCOUNTER 2022-09-19 22:26 | Emergency (ER) | payer MEDICAID ==
[~2022-09-19] VITALS: Ht 160 cm; Wt 101.6 kg
[2022-09-19] MEDS ORDERED: NS IV 1000 ML 1,000 ML ONE (22:39)
[2022-09-19 22:45] LABS: BASOPHILS # (AUTO) 0.2 10^3/uL (0.0-0.1); BASOPHILS % (AUTO) 1 % (0-10); EOSINOPHILS # (AUTO) 0.7 10^3/uL (0.0-0.3); EOSINOPHILS % (AUTO) 5 % (0-10); HEMATOCRIT 35 % (35-52); HEMOGLOBIN 10.5 g/dL (11.5-16.0); LYMPHOCYTES # (AUTO) 3.5 10^3/uL (1.0-4.0); LYMPHOCYTES % (AUTO) 25 % (12-44); MEAN CORPUSCULAR HEMOGLOBIN 22 pg (25-34); MEAN CORPUSCULAR HGB CONC 30 g/dL (32-36); MEAN CORPUSCULAR VOLUME 73 fL (80-99); MEAN PLATELET VOLUME 9.8 fL (9.0-12.2); MONOCYTES # (AUTO) 1.1 10^3/uL (0.0-1.0); MONOCYTES % (AUTO) 7 % (0-12); NEUTROPHILS # (AUTO) 8.9 10^3/uL (1.8-7.8); NEUTROPHILS % (AUTO) 62 % (42-75); PLATELET COUNT 516 10^3/uL (130-400); WHITE BLOOD COUNT 14.4 10^3/uL (4.3-11.0)
[2022-09-19] MEDS ORDERED: NS IV 1000 ML 1,000 ML IV SCH (22:45)
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
[2022-09-19 22:50] LABS: ALBUMIN 3.5 GM/DL (3.2-4.5); CHLORIDE 105 MMOL/L (98-107); POTASSIUM 3.5 MMOL/L (3.6-5.0); SODIUM 140 MMOL/L (135-145)
[2022-09-19 22:51] LABS: CALCIUM 9.2 MG/DL (8.5-10.1)
[2022-09-19 22:52] LABS: GLUCOSE 165 MG/DL (70-105)
[2022-09-19 22:54] LABS: BILIRUBIN,TOTAL 0.3 MG/DL (0.1-1.0); CARBON DIOXIDE 23 MMOL/L (21-32)
[2022-09-19 22:56] LABS: ALKALINE PHOSPHATASE 90 U/L (40-136); CREATININE SERUM 1.07 MG/DL (0.60-1.30); GFR ESTIMATED 63
[2022-09-19 22:57] LABS: BUN/CREATININE RATIO 15
[2022-09-19 22:59] LABS: ALANINE AMINOTRANSFERASE 26 U/L (0-55)
[2022-09-19 23:11] LABS: BAND NEUTROPHILS 1 %; EOSINOPHILS % (MANUAL) 2 %; LYMPHOCYTES % (MANUAL) 20 %; MONOCYTES % (MANUAL) 4 %; NEUTROPHILS % (MANUAL) 73 %
[2022-09-19 23:12] LABS: ANISOCYTOSIS SLIGHT; PLATELET ESTIMATE ELEVATED; POIKILOCYTOSIS SLIGHT
[2022-09-19 23:34] LABS: BILIRUBIN,URINE NEGATIVE (NEGATIVE); CLARITY,URINE SL CLOUDY; COLOR,URINE YELLOW; GLUCOSE, URINE (UA) 3+ (NEGATIVE); KETONES,URINE NEGATIVE (NEGATIVE); LEUKOCYTE ESTERASE ,URINE TRACE (NEGATIVE); NITRITE,URINE NEGATIVE (NEGATIVE); PROTEIN,URINE NEGATIVE (NEGATIVE)
[2022-09-19 23:45] LABS: BACTERIA,URINE LARGE /HPF; WBC,URINE 25-50 /HPF
[2022-09-20] MEDS ORDERED: cefTRIAXone 1 GM PRE-MIX 50 ML IV ONE
[2022-09-20] MEDS ORDERED: CEPH500T PO (01:00)
[2022-09-20 01:35] VITALS: BP 134/77
--- NOTE | 2022-09-20 07:52 | Diagnostic Imaging Report ---
INDICATION: Chest pain and hypertension. FINDINGS: The heart size, mediastinal configuration, and pulmonary vascularity are within normal limits. There is no pleural effusion, pneumothorax, or pneumonia. The osseous structures are unremarkable. IMPRESSION: No acute cardiopulmonary abnormality. Dictated by: Dictated on workstation # [id number]
== END 2022-09-20 01:35 | disposition home or self-care (01) ==
LOC: EDUNIT# 22:26 → ER 22:29
DX: N39.0 Urinary tract infection, site not specified (principal); E86.0 Dehydration; E66.01 Morbid (severe) obesity due to excess calories; F17.210 Nicotine dependence, cigarettes, uncomplicated; Z87.442 Personal history of urinary calculi; Z98.890 Other specified postprocedural states; Z68.41 Body mass index [BMI] 40.0-44.9, adult
CPT/HCPCS: 36415; 71045; 80053; 81000; 83605; 84484; 85007; 85027; 87040; 87077; 87088; 87186; 93005

== ENCOUNTER → 2023-01-14 | Outpatient (CLI) | payer MEDICAID ==
[~2023-01-14] MED LIST changes: +CEPH500T PO
== END ==
LOC: WOUNDCARE 13:08
PROVIDERS: ATTEND Family Medicine
DX: I96 Gangrene, not elsewhere classified (principal); L02.211 Cutaneous abscess of abdominal wall; E11.622 Type 2 diabetes mellitus with other skin ulcer; E11.65 Type 2 diabetes mellitus with hyperglycemia; B95.8 Unspecified staphylococcus as the cause of diseases classified elsewhere; F17.210 Nicotine dependence, cigarettes, uncomplicated; E66.01 Morbid (severe) obesity due to excess calories; Z68.41 Body mass index [BMI] 40.0-44.9, adult
CPT/HCPCS: 11042

== ENCOUNTER → 2023-01-19 | Outpatient (CLI) | payer MEDICAID | LOC: WOUNDCARE 13:17 | PROVIDERS: ATTEND Family Medicine | DX: E11.65 Type 2 diabetes mellitus with hyperglycemia (principal); B95.8 Unspecified staphylococcus as the cause of diseases classified elsewhere; E11.622 Type 2 diabetes mellitus with other skin ulcer; F17.210 Nicotine dependence, cigarettes, uncomplicated; E66.01 Morbid (severe) obesity due to excess calories; Z68.41 Body mass index [BMI] 40.0-44.9, adult; L02.211 Cutaneous abscess of abdominal wall; E11.52 Type 2 diabetes mellitus with diabetic peripheral angiopathy with gangrene | CPT/HCPCS: 11042 ==

== ENCOUNTER → 2023-01-26 | Outpatient (CLI) | payer MEDICAID | LOC: WOUNDCARE 14:55 | PROVIDERS: ATTEND Family Medicine | DX: E11.622 Type 2 diabetes mellitus with other skin ulcer (principal); E11.65 Type 2 diabetes mellitus with hyperglycemia; B95.8 Unspecified staphylococcus as the cause of diseases classified elsewhere; F17.210 Nicotine dependence, cigarettes, uncomplicated; Z68.42 Body mass index [BMI] 45.0-49.9, adult; L02.211 Cutaneous abscess of abdominal wall; E66.01 Morbid (severe) obesity due to excess calories | CPT/HCPCS: 11042 ==

== ENCOUNTER 2023-02-09 22:10 | Emergency (ER) | payer MEDICAID ==
[~2023-02-09] VITALS: Ht 172 cm; Wt 95.2 kg
[2023-02-09] MEDS ORDERED: LACTATED RINGERS 1,000 ML IV ONE (22:30)
--- NOTE | 2023-02-09 22:36 | ED General ---
General Chief Complaint: Abdominal/GI Problems Stated Complaint: N/V Nursing Triage Note: patient took 1/2 of a 400 mg gummy. patient states vomitting at home, states heart racing, moaning. Source of Information: EMS, Old Records (ALL PMH IS FROM OLD RECORDS) Exam Limitations: Intoxication, Other (PT NOT ANSWERING MY QUESTIONS) History of Present Illness Date Seen by Provider: Feb 09, 2023 Time Seen by Provider: 22:19 Initial Comments PT ARRIVES VIA EMS FROM HOME--EMS REPORTS THAT A MALE AT THE RESIDENCE CALLED PT TOOL 200 MG OF A "GUMMY" THC, AND THEN STARTED VOMITING AT HOME EMS GAVE ZOFRAN 8 MG IM PRIOR TO ARRIVAL, PT IS NOT VOMITING ON ARRIVAL IS UNKNOWN HOW MANY TIMES PT VOMITING. EMS REPORT THAT PT C/O FEELING LIKE HER HEART WAS BEATING OUT OF HER CHEST PULSE IN 70'S-80'S AND REGULAR, AND BP 140'/70'S, O2 SATS 98% ON ROOM AIR. EMS REPORTS THAT PT IS DIABETIC AND HAS HTN. PT IS MUMBLING AND MOANING ON ARRIVAL, AND IS NOT ANSWERING QUESTIONS SHE IS DROWSY, BUT IS IN NO ACUTE DISTRESS ON ARRIVAL. ON DIRECT QUESTIONING IF SHE HAS EVER USED MARIJUANA BEFORE, PT NODS HEAD YES. I AM UNABLE TO OBTAIN ANY OTHER INFORMATION FROM PT AT THIS TIME. PER OLD RECORDS, PT SMOKES AND VAPES NICOTINE, AND SMOKES MARIJUANA ON A REGULAR BASIS SHE HAS A LONG HISTORY OF EXTREME NON-COMPLIANCE IN ALL ASPECTS OF CARE PCP: [facility] Allergies and Home Medications Allergies Coded Allergies: No Known Drug Allergies (Verified , 10/31/07) Uncoded Allergies: NKDA (Allergy, Mild, 04/04/09) Patient Home Medication List Albuterol Sulfate (Albuterol Sulfate) 2.5 Mg/3 Ml Vial.neb, 2.5 MG IH Q4H Prescribed by: MISSY LUTHER on 10/19/17 1101 Amoxicillin/Potassium Clav (Augmentin 250-62.5 mg/5 ml) 250 Mg/5 Ml Susp.recon, 2 TSP PO TID Prescribed by: GEE CAPONE on 04/29/18 211 Azithromycin (Azithromycin) 250 Mg Tablet, 250 MG PO UD Prescribed by: MISSY LUTHER on 12/30/17 0741 Butalb/Acetaminophen/Caffeine (Mcomra-Asfrgjwz-Avpo 50-300-40) 1 Each Capsule, 1 EACH PO Q4H PRN for headache Prescribed by: GEE CAPONE on 10/22/19 231 Cephalexin (Keflex) 500 Mg Capsule, 500 MG PO TID Prescribed by: MISSY LUTHER on 06/26/192241 Cephalexin (Cephalexin) 500 Mg Tablet, 500 MG PO BID Prescribed by: VICK ALDRIDGE MD on 09/20/22 0100 Fluconazole (Diflucan) 150 Mg Tablet, 150 MG PO ONCE Prescribed by: MISSY LUTHER on 06/26/192241 Fluconazole (Diflucan) 200 Mg Tablet, 200 MG PO DAILY Prescribed by: AMBROSE WELLINGTON on 08/20/19258 Hyoscyamine Sulfate (Levsin-Sl) 0.125 Mg Tab.subl, 0.125 MG SL Q4H PRN for CRAMPS Prescribed by: MISSY LUTHER on 12/19/172249 Ipratropium/Albuterol Sulfate (Combivent Inhaler) 14.7 Gm Aer.w.adap, (Reported) Entered as Reported by: TRACEY MONTEMAYOR on 08/15/09 182 Miconazole Nitrate (Monistat 7) 45 Gm Cream.appl, 45 GM VG HS Prescribed by: AMBROSE WELLINGTON on 08/20/19258 Mupirocin (Mupirocin) 1 Gm Oin.pf.yonny, 1 GM TP BID Prescribed by: AMBROSE WELLINGTON on 08/20/19258 Ondansetron (Ondansetron Odt) 4 Mg Tab.rapdis, 4 MG SL Q4H PRN for NAUSEA/VOMITING-1ST LINE Prescribed by: MISSY LUTHER on 06/26/192241 Ondansetron (Ondansetron Odt) 4 Mg Tab.rapdis, 4 MG PO Q6H PRN for NAUSEA/VOMITING Prescribed by: LAURIE ARORA on 03/29/22 031 Pantoprazole Sodium (Protonix) 40 Mg Tablet.dr, 40 MG PO DAILY Prescribed by: GEE CAPONE on 04/29/182117 Prednisone (Prednisone) 10 Mg Tab, 10 MG PO UD Prescribed by: MISSY LUTHER on 10/19/17 1101 Prednisone (Prednisone) 20 Mg Tab, 20 MG PO DAILY Prescribed by: MISSY LUTHER on 12/30/17 0741 Sulfamethoxazole/Trimethoprim (Bactrim Ds Tablet) 1 Each Tablet, 1 EACH PO BID Prescribed by: AMBROSE WELLINGTON on 08/20/19 0259 Review of Systems Review of Systems Constitutional: see HPI Past Eibvtza-Nbylpr-Auvnxe Hx Immunizations Up To Date PED Vaccines UTD: Yes Influenza Vaccine Up-to-Date: No; Not Current First/Initial COVID19 Vaccinat: 2020 Second COVID19 Vaccination Melquiades: 2020 Third COVID19 Vaccination Date: NONE Seasonal Allergies Seasonal Allergies: No Past Medical History Surgery/Hospitalization HX: ASTHMA, DM2, DEGENERATIVE DISC DISEASE Surgeries: Yes (LITHOTRIPSY) Section, Gallbladder, Renal, Tonsillectomy Respiratory: Yes Asthma Cardiac: Yes High Cholesterol Neurological: No Reproductive Disorders: No Genitourinary: Yes Bladder Infection, Kidney Stones Gastrointestinal: Yes Gastroesophageal Reflux Musculoskeletal: Yes Degenerate Disk Disease, Chronic Back Pain Endocrine: Yes (EXTREME NON-COMPLIANCE; MORBID OBESITY) Hypothyroidsim, Diabetes, Non-Insulin dep HEENT: No Cancer: No Psychosocial: Yes Sleep Difficulties, Anxiety Integumentary: Yes (CANDIDIASIS, SKIN ABSCESSES/CELLULITIS) Blood Disorders: No Family Medical History No Pertinent Family Hx Physical Exam Vital Signs Vital Signs - First Documented 02/09/23 22:15 Pulse 81 Resp 18 B/P (MAP) 147/87 (107) Pulse Ox 96 O2 Delivery Room Air Capillary Refill : Less Than 3 Seconds Height, Weight, BMI Height: 5'3.00" Weight: 240lbs. 14.4oz. 108.069227bw; 32.00 BMI Method:Stated General Appearance: Other (MORBIDLY OBESE, PT IS SPRAWLED OUT ON ER CART WITH BOTH LEGS HANGING OFF THE SIDES OF THE CART, WELL HER ARMS. SHE MOANS AND MUMBLES. SHE IS NOT HAVING DIFFICULTY BREATHING OR HANDLING SECRETIONS. ) Respiratory: Normal Breath Sounds, No Accessory Muscle Use, No Respiratory Distress Cardiovascular: Regular Rate, Rhythm Gastrointestinal: Soft Extremity: No Pedal Edema Neurologic/Psychiatric: Other ( ABOVE. PT MOVING ALL EXTREMITIES, BUT NOT TALKING OR FOLLOWING COMMANDS. ) Skin: Normal Color, Warm/Dry, Other (SORES ON FACE, ARMS AND LEGS. NO SIGNS OF SECONDARY INFECTION) Progress/Results/Core Measures Suspected Sepsis SIRS Temperature: Pulse: 81 Respiratory Rate: 18 Laboratory Tests 02/09/23 22:46: White Blood Count 12.7H Blood Pressure 147 /87 Mean: 107 Laboratory Tests 02/09/23 22:46: Creatinine 0.87, Platelet Count 411H, Total Bilirubin 0.2 Results/Orders Lab Results Laboratory Tests Test 02/09/23 22:46 Range/Units White Blood Count 12.7 H 4.3-11.0 10^3/uL Red Blood Count 4.98 3.80-5.11 10^6/uL Hemoglobin 11.2 L 11.5-16.0 g/dL Hematocrit 37 35-52 % Mean Corpuscular Volume 74 L 80-99 fL Mean Corpuscular Hemoglobin 23 L 25-34 pg Mean Corpuscular Hemoglobin Concent 30 L 32-36 g/dL Red Cell Distribution Width 19.3 H 10.0-14.5 % Platelet Count 411 H 130-400 10^3/uL Mean Platelet Volume 10.2 9.0-12.2 fL Immature Granulocyte % (Auto) 0 % Neutrophils (%) (Auto) 70 42-75 % Lymphocytes (%) (Auto) 18 12-44 % Monocytes (%) (Auto) 7 0-12 % Eosinophils (%) (Auto) 4 0-10 % Basophils (%) (Auto) 1 0-10 % Neutrophils # (Auto) 8.9 H 1.8-7.8 10^3/uL Lymphocytes # (Auto) 2.3 1.0-4.0 10^3/uL Monocytes # (Auto) 0.8 0.0-1.0 10^3/uL Eosinophils # (Auto) 0.4 H 0.0-0.3 10^3/uL Basophils # (Auto) 0.2 H 0.0-0.1 10^3/uL Immature Granulocyte # (Auto) 0.1 0.0-0.1 10^3/uL Sodium Level 137 135-145 MMOL/L Potassium Level 4.0 3.6-5.0 MMOL/L Chloride Level 101 98-107 MMOL/L Carbon Dioxide Level 24 21-32 MMOL/L Anion Gap 12 5-14 MMOL/L Blood Urea Nitrogen 10 7-18 MG/DL Creatinine 0.87 0.60-1.30 MG/DL Estimat Glomerular Filtration Rate 81 BUN/Creatinine Ratio 11 Glucose Level 161 H 70-105 MG/DL Calcium Level 9.0 8.5-10.1 MG/DL Corrected Calcium 9.4 8.5-10.1 MG/DL Total Bilirubin 0.2 0.1-1.0 MG/DL Aspartate Amino Transf (AST/SGOT) 13 5-34 U/L Alanine Aminotransferase (ALT/SGPT) 18 0-55 U/L Alkaline Phosphatase 101 40-136 U/L Total Protein 6.8 6.4-8.2 GM/DL Albumin 3.5 3.2-4.5 GM/DL Amylase Level 22 L 25-125 U/L Serum Test, Qualitative NEGATIVE NEGATIVE Salicylates Level < 5.0 L 5.0-20.0 MG/DL Acetaminophen Level < 10 L 10-30 UG/ML Serum Alcohol < 10 <10 MG/DL My Orders Orders - AMBROSE WELLINGTON DO Ed Iv/Invasive Line Start (02/09/23 22:19) Monitor-Rhythm Ecg Trace Only (02/09/23 22:19) Acetaminophen (02/09/23 22:19) Alcohol (02/09/23 22:19) Amylase (02/09/23 22:19) Cbc With Automated Diff (02/09/23 22:19) Comprehensive Metabolic Panel (02/09/23 22:19) Drug Screen Stat (Urine) (02/09/23 22:19) Hcg,Qualitative Serum (02/09/23 22:19) Salicylate (02/09/23 22:19) Ua Culture If Indicated (02/09/23 22:19) Ed Iv/Invasive Line Start (02/09/23 22:19) Lactated Ringers (Lr 1000 Ml Iv Solution (02/09/23 22:30) Accucheck Stat ONCE (02/09/23 22:24) Straight Cath For Spec.-Adult (02/09/23 22:24) Ondansetron Injection (Zofran Injectio (02/09/23 23:00) Medications Given in ED Current Medications Medications Dose Ordered Sig/Luis Route Start Time Stop Time Status Last Admin Dose Admin Ondansetron HCl 8 mg ONCE ONCE IM 02/09/23 23:00 02/09/23 23:01 DC 02/09/23 23:01 8 MG Vital Signs/I&O 02/09/23 22:15 Pulse 81 Resp 18 B/P (MAP) 147/87 (107) Pulse Ox 96 O2 Delivery Room Air Capillary Refill : Less Than 3 Seconds Blood Pressure Mean: 107 Progress Note : Progress Note EXTREMELY DIFFICULTY IV STICK AND UNABLE TO OBTAIN IV. POISON CONTROL CONTACTED--SUPPORTIVE / SYMPTOMATIC CARE, THERE ARE NO "TOXIC" LEVELS OF MARIJUANA TO FOLLOW. 2252--PT CALLING OUT, WANTING A BLANKET, SPEECH IS CLEAR AND DOES NOT APPEAR CONFUSED. 2253--PT NOW VOMITING ALL OVER THE FLOOR. DENYS AHN ORDERED Departure Impression Primary Impression: Marijuana use Additional Impressions: Marijuana intoxication Nausea & vomiting Disposition: HOME, SELF-CARE Condition: Stable Departure-Patient Inst. Decision time for Depature: 23:25 Referrals: [facility] (PCP) Primary Care Physician SUSAN COLEMAN DO (Family) Primary Care Physician Patient Instructions: Marijuana Use and Addiction (DC), Nausea and Vomiting, Adult ED Add. Discharge Instructions: NO MARIJUANA OR ANY ILLEGAL DRUGS CONTINUE YOUR PRESCRIBED MEDICATIONS INSTRUCTED CLEAR LIQUIDS--WATER, BROTH, JELLO, GATORADE BRATS DIET--BANANAS, RICE, APPLESAUCE, TOAST, SALTINES FOLLOW UP WITH YOUR DR TOMORROW IF YOUR SYMPTOMS PERSIST All discharge instructions reviewed with patient and/or family. Voiced understanding. AMBROSE WELLINGTON DO Feb 09, 2023 22:36
[2023-02-09 22:56] LABS: BASOPHILS # (AUTO) 0.2 10^3/uL (0.0-0.1); BASOPHILS % (AUTO) 1 % (0-10); EOSINOPHILS # (AUTO) 0.4 10^3/uL (0.0-0.3); EOSINOPHILS % (AUTO) 4 % (0-10); HEMATOCRIT 37 % (35-52); HEMOGLOBIN 11.2 g/dL (11.5-16.0); LYMPHOCYTES # (AUTO) 2.3 10^3/uL (1.0-4.0); LYMPHOCYTES % (AUTO) 18 % (12-44); MEAN CORPUSCULAR HEMOGLOBIN 23 pg (25-34); MEAN CORPUSCULAR HGB CONC 30 g/dL (32-36); MEAN CORPUSCULAR VOLUME 74 fL (80-99); MEAN PLATELET VOLUME 10.2 fL (9.0-12.2); MONOCYTES # (AUTO) 0.8 10^3/uL (0.0-1.0); MONOCYTES % (AUTO) 7 % (0-12); NEUTROPHILS # (AUTO) 8.9 10^3/uL (1.8-7.8); NEUTROPHILS % (AUTO) 70 % (42-75); PLATELET COUNT 411 10^3/uL (130-400); WHITE BLOOD COUNT 12.7 10^3/uL (4.3-11.0)
[2023-02-09] MEDS ORDERED: ONDANSETRON 4 MG/2 ML (SDV) Z0FRAN IM ONE (23:00)
[2023-02-09 23:02] LABS: ALBUMIN 3.5 GM/DL (3.2-4.5)
[2023-02-09 23:03] LABS: CHLORIDE 101 MMOL/L (98-107); SODIUM 137 MMOL/L (135-145)
[2023-02-09 23:04] LABS: AMYLASE 22 U/L (25-125)
[2023-02-09 23:05] LABS: GLUCOSE 161 MG/DL (70-105); TOTAL PROTEIN 6.8 GM/DL (6.4-8.2)
[2023-02-09 23:06] LABS: CARBON DIOXIDE 24 MMOL/L (21-32)
[2023-02-09 23:07] LABS: BILIRUBIN,TOTAL 0.2 MG/DL (0.1-1.0)
[2023-02-09 23:08] LABS: ALKALINE PHOSPHATASE 101 U/L (40-136)
[2023-02-09 23:09] LABS: CREATININE SERUM 0.87 MG/DL (0.60-1.30); GFR ESTIMATED 81
[2023-02-09 23:10] LABS: BUN/CREATININE RATIO 11
[2023-02-09 23:12] LABS: ALANINE AMINOTRANSFERASE 18 U/L (0-55); SALICYLATE < 5.0 MG/DL (5.0-20.0)
[2023-02-09 23:13] LABS: ACETAMINOPHEN < 10 UG/ML (10-30)
[2023-02-09] MEDS ORDERED: RX-ONDANSETRON 4 MG ODT (ZOFRAN) PPK #4 PO STA (23:25)
[2023-02-09 23:30] VITALS: BP 150/77
== END 2023-02-09 23:45 | disposition home or self-care (01) ==
LOC: EDUNIT# 22:10 → ER 22:11
DX: F12.929 Cannabis use, unspecified with intoxication, unspecified (principal); R11.2 Nausea with vomiting, unspecified; E66.01 Morbid (severe) obesity due to excess calories; Z68.32 Body mass index [BMI] 32.0-32.9, adult; Z28.310 Unvaccinated for COVID-19
CPT/HCPCS: 36415; 80053; 80320; 80329; 82150; 84703; 85025; 93041

== ENCOUNTER 2023-04-27 15:58 | Emergency (ER) | payer MEDICAID ==
[~2023-04-27] VITALS: Ht 160 cm; Wt 102.9 kg
--- NOTE | 2023-04-27 16:18 | ED Chest Pain ---
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 PT REPORTS INCREASE IN STRESS RECENTLY. PT DENIES SOA OR NAUSEA. PT REPORTS CP RESOLVED UPON ARRIVAL TO ED Source: patient Exam Limitations: no limitations History of Present Illness Date Seen by Provider: April 27, 2023 Time Seen by Provider: 16:09 Initial Comments 52-year-old female presents from home for chest pain. Symptoms started about 25 to 30 minutes prior to arrival. Is described as a sharp stabbing pain intermittently in her right anterior chest. Last about 15 seconds but it comes on and spontaneously relieves. She has not happened about 3 times since onset. No specific aggravating or alleviating factors. Is not necessarily pleuritic in nature. No unilateral lower extremity pain, swelling, recent long distance travel or surgeries. No cardiac history. No fevers chills cough abdominal pain or changes in bowel or bladder habits. She is pain-free at present. All other systems reviewed and negative except documented per HPI. Voice recognition software was used to help create this chart Allergies and Home Medications Allergies Coded Allergies: No Known Drug Allergies (Verified , 10/31/07) Uncoded Allergies: NKDA (Allergy, Mild, 04/04/09) Patient Home Medication List Home Medication List Reviewed: Yes Albuterol Sulfate (Albuterol Sulfate) 2.5 Mg/3 Ml Vial.neb, 2.5 MG IH Q4H Prescribed by: MISSY LUTHER on 10/19/17 1101 Amoxicillin/Potassium Clav (Augmentin 250-62.5 mg/5 ml) 250 Mg/5 Ml Susp.recon, 2 TSP PO TID Prescribed by: GEE CAPONE on 04/29/18 211 Azithromycin (Azithromycin) 250 Mg Tablet, 250 MG PO UD Prescribed by: MISSY LUTHER on 12/30/17 0741 Butalb/Acetaminophen/Caffeine (Tkzzal-Lpujrnfi-Ibvw 50-300-40) 1 Each Capsule, 1 EACH PO Q4H PRN for headache Prescribed by: GEE CAPONE on 10/22/19 2319 Cephalexin (Keflex) 500 Mg Capsule, 500 MG PO TID Prescribed by: MISSY LUTHER on 06/26/19 2242 Cephalexin (Cephalexin) 500 Mg Tablet, 500 MG PO BID Prescribed by: VICK ALDRIDGE MD on 09/20/22 0100 Fluconazole (Diflucan) 150 Mg Tablet, 150 MG PO ONCE Prescribed by: MISSY LUTHER on 06/26/192241 Fluconazole (Diflucan) 200 Mg Tablet, 200 MG PO DAILY Prescribed by: AMBROSE WELLINGTON on 08/20/19258 Hyoscyamine Sulfate (Levsin-Sl) 0.125 Mg Tab.subl, 0.125 MG SL Q4H PRN for CRAMPS Prescribed by: MISSY LUTHER on 12/19/17 225 Ipratropium/Albuterol Sulfate (Combivent Inhaler) 14.7 Gm Aer.w.adap, (Reported) Entered as Reported by: TRACEY MONTEMAYOR on 08/15/09 182 Miconazole Nitrate (Monistat 7) 45 Gm Cream.appl, 45 GM VG HS Prescribed by: AMBROSE WELLINGTON on 08/20/19258 Mupirocin (Mupirocin) 1 Gm Oin.pf.yonny, 1 GM TP BID Prescribed by: AMBROSE WELLINGTON on 08/20/19258 Ondansetron (Ondansetron Odt) 4 Mg Tab.rapdis, 4 MG SL Q4H PRN for NAUSEA/VOMITING-1ST LINE Prescribed by: MISSY LUTHER on 06/26/192241 Ondansetron (Ondansetron Odt) 4 Mg Tab.rapdis, 4 MG PO Q6H PRN for NAUSEA/VOMIT ING Prescribed by: LAURIE ARORA on 03/29/22 0313 Pantoprazole Sodium (Protonix) 40 Mg Tablet.dr, 40 MG PO DAILY Prescribed by: GEE CAPONE on 04/29/18 2118 Prednisone (Prednisone) 10 Mg Tab, 10 MG PO UD Prescribed by: MISSY LUTHER on 10/19/17 1101 Prednisone (Prednisone) 20 Mg Tab, 20 MG PO DAILY Prescribed by: MISSY LUTHER on 12/30/17 0741 Sulfamethoxazole/Trimethoprim (Bactrim Ds Tablet) 1 Each Tablet, 1 EACH PO BID Prescribed by: AMBROSE WELLINGTON on 9/22/19 0259 Review of Systems Review of Systems Constitutional: see HPI Past Vueyxuj-Jbcaox-Qjpspb Hx Patient Social History Tobacco Use?: Yes Smoking Status: Current Everyday Smoker Use of E-Cig and/or Vaping dev: Yes E-Cig or Vaping type used: Marijuana Substance use?: No Alcohol Use?: No Pt feels they are or have been: No Immunizations Up To Date PED Vaccines UTD: Yes First/Initial COVID19 Vaccinat: 2020 Second COVID19 Vaccination Melquiades: 2020 Third COVID19 Vaccination Date: NONE Seasonal Allergies Seasonal Allergies: No Past Medical History Surgery/Hospitalization HX: ASTHMA, DM2, DEGENERATIVE DISC DISEASE Surgeries: Yes (LITHOTRIPSY) Section, Gallbladder, Renal, Tonsillectomy Respiratory: Yes Asthma Cardiac: Yes High Cholesterol Neurological: No Reproductive Disorders: No Genitourinary: Yes Bladder Infection, Kidney Stones Gastrointestinal: Yes Gastroesophageal Reflux Musculoskeletal: Yes Degenerate Disk Disease, Chronic Back Pain Endocrine: Yes (EXTREME NON-COMPLIANCE; MORBID OBESITY) Hypothyroidsim, Diabetes, Non-Insulin dep HEENT: No Cancer: No Psychosocial: Yes Sleep Difficulties, Anxiety Integumentary: Yes (CANDIDIASIS, SKIN ABSCESSES/CELLULITIS) Blood Disorders: No Family Medical History No Pertinent Family Hx Physical Exam Vital Signs Vital Signs - First Documented 04/27/23 16:02 Temp 36.5 Pulse 84 Resp 14 B/P (MAP) 127/60 (82) Pulse Ox 99 Capillary Refill : Less Than 3 Seconds Height, Weight, BMI Height: 5'3.00" Weight: 240lbs. 14.4oz. 108.131606bd; 40.00 BMI Method:Stated General Appearance: No Apparent Distress, WD/WN HEENT: Normal ENT Inspection, Pharynx Normal Neck: Full Range of Motion, Normal Inspection, Non Tender, Supple Respiratory: Chest Non Tender, Lungs Clear, Normal Breath Sounds, No Accessory Muscle Use, No Respiratory Distress Cardiovascular: Regular Rate, Rhythm, No Edema, Normal Peripheral Pulses Gastrointestinal: Normal Bowel Sounds, No Organomegaly, Non Tender, Soft Extremity: Normal Capillary Refill, Normal Inspection, Normal Range of Motion, Non Tender, No Calf Tenderness, No Pedal Edema Neurologic/Psychiatric: Alert, Oriented x3, Normal Mood/Affect Skin: Normal Color, Warm/Dry Progress/Results/Core Measures Results/Orders Lab Results Laboratory Tests Test 04/27/23 16:18 Range/Units White Blood Count 13.0 H 4.3-11.0 10^3/uL Red Blood Count 5.15 H 3.80-5.11 10^6/uL Hemoglobin 12.3 11.5-16.0 g/dL Hematocrit 40 35-52 % Mean Corpuscular Volume 77 L 80-99 fL Mean Corpuscular Hemoglobin 24 L 25-34 pg Mean Corpuscular Hemoglobin Concent 31 L 32-36 g/dL Red Cell Distribution Width 19.7 H 10.0-14.5 % Platelet Count 440 H 130-400 10^3/uL Mean Platelet Volume 10.0 9.0-12.2 fL Immature Granulocyte % (Auto) 1 % Neutrophils (%) (Auto) 68 42-75 % Lymphocytes (%) (Auto) 20 12-44 % Monocytes (%) (Auto) 7 0-12 % Eosinophils (%) (Auto) 4 0-10 % Basophils (%) (Auto) 1 0-10 % Neutrophils # (Auto) 8.8 H 1.8-7.8 10^3/uL Lymphocytes # (Auto) 2.6 1.0-4.0 10^3/uL Monocytes # (Auto) 0.9 0.0-1.0 10^3/uL Eosinophils # (Auto) 0.5 H 0.0-0.3 10^3/uL Basophils # (Auto) 0.2 H 0.0-0.1 10^3/uL Immature Granulocyte # (Auto) 0.1 0.0-0.1 10^3/uL Sodium Level 138 135-145 MMOL/L Potassium Level 4.1 3.6-5.0 MMOL/L Chloride Level 105 98-107 MMOL/L Carbon Dioxide Level 23 21-32 MMOL/L Anion Gap 10 5-14 MMOL/L Blood Urea Nitrogen 12 7-18 MG/DL Creatinine 0.93 0.60-1.30 MG/DL Estimat Glomerular Filtration Rate 74 BUN/Creatinine Ratio 13 Glucose Level 106 H 70-105 MG/DL Calcium Level 9.1 8.5-10.1 MG/DL Corrected Calcium 9.5 8.5-10.1 MG/DL Magnesium Level 1.8 1.6-2.4 MG/DL Total Bilirubin 0.2 0.1-1.0 MG/DL Aspartate Amino Transf (AST/SGOT) 31 5-34 U/L Alanine Aminotransferase (ALT/SGPT) 23 0-55 U/L Alkaline Phosphatase 94 40-136 U/L Troponin I < 0.028 <0.028 NG/ML Total Protein 7.6 6.4-8.2 GM/DL Albumin 3.5 3.2-4.5 GM/DL My Orders Orders - VICK ALDRIDGE DO Ekg Tracing (04/27/23 16:04) Cbc With Automated Diff (04/27/23 16:15) Magnesium (04/27/23 16:15) Chest 1 View, Ap/Pa Only (04/27/23 16:15) Comprehensive Metabolic Panel (04/27/23 16:15) Monitor-Rhythm Ecg Trace Only (04/27/23 16:15) Ed Iv/Invasive Line Start (04/27/23 16:15) Troponin I [place] (04/27/23 16:15) Vital Signs/I&O 04/27/23 16:02 Temp 36.5 Pulse 84 Resp 14 B/P (MAP) 127/60 (82) Pulse Ox 99 Blood Pressure Mean: 82 Comment Sinus rhythm with a rate of 80 bpm. Normal intervals. Normal axis. No ST or T wave abnormalities. No ectopy. No STEMI. Departure Communication (Admissions) Heart score is 1 for age. Troponin is negative. EKG is nonischemic. Have independently reviewed labs EKG and chest x-ray. Chest x-ray shows no acute cardiopulmonary abnormalities. No bony abnormalities. She is extremely low risk for ACS at this point. Her story is not really consistent with this. This is likely pleurisy. No evidence for pneumothorax or pneumonia. She be discharged with supportive care, recommended anti-inflammatories and deep breathing exercises. Discharged in stable condition. Impression Primary Impression: Atypical chest pain Disposition: 01 HOME, SELF-CARE Condition: Stable Departure-Patient Inst. Referrals: [facility] (PCP) Primary Care Physician SUSAN COLEMAN DO (Family) Primary Care Physician Patient Instructions: Chest Pain That Is Not Caused by the Heart (DC) Add. Discharge Instructions: Use anti-inflammatory such as Motrin Aleve for pains. Follow-up with your primary doctor for any nonemergent needs. Return to the emergency department for any severe concerns All discharge instructions reviewed with patient and/or family. Voiced understanding. LUIS CARLOS,VICK L DO April 27, 2023 16:18
[2023-04-27 16:24] LABS: BASOPHILS # (AUTO) 0.2 10^3/uL (0.0-0.1); BASOPHILS % (AUTO) 1 % (0-10); EOSINOPHILS # (AUTO) 0.5 10^3/uL (0.0-0.3); EOSINOPHILS % (AUTO) 4 % (0-10); HEMATOCRIT 40 % (35-52); HEMOGLOBIN 12.3 g/dL (11.5-16.0); LYMPHOCYTES # (AUTO) 2.6 10^3/uL (1.0-4.0); LYMPHOCYTES % (AUTO) 20 % (12-44); MEAN CORPUSCULAR HEMOGLOBIN 24 pg (25-34); MEAN CORPUSCULAR HGB CONC 31 g/dL (32-36); MEAN CORPUSCULAR VOLUME 77 fL (80-99); MONOCYTES # (AUTO) 0.9 10^3/uL (0.0-1.0); MONOCYTES % (AUTO) 7 % (0-12); NEUTROPHILS # (AUTO) 8.8 10^3/uL (1.8-7.8); NEUTROPHILS % (AUTO) 68 % (42-75); PLATELET COUNT 440 10^3/uL (130-400)
--- NOTE | 2023-04-27 16:34 | Diagnostic Imaging Report ---
INDICATION: Chest pain. TIME OF EXAM: 4:18 p.m. COMPARISON: Correlation is made with prior chest from 09/19/2022. FINDINGS: Heart size is stable. Lungs are clear. No infiltrates are detected. No effusion or pneumothorax is identified. IMPRESSION: No acute cardiopulmonary process is detected. Dictated by: Dictated on workstation # [id number]
[2023-04-27 16:41] LABS: ALBUMIN 3.5 GM/DL (3.2-4.5); CHLORIDE 105 MMOL/L (98-107); POTASSIUM 4.1 MMOL/L (3.6-5.0); SODIUM 138 MMOL/L (135-145)
[2023-04-27 16:42] LABS: CALCIUM 9.1 MG/DL (8.5-10.1)
[2023-04-27 16:43] LABS: GLUCOSE 106 MG/DL (70-105); TOTAL PROTEIN 7.6 GM/DL (6.4-8.2)
[2023-04-27 16:44] LABS: CARBON DIOXIDE 23 MMOL/L (21-32)
[2023-04-27 16:45] LABS: BILIRUBIN,TOTAL 0.2 MG/DL (0.1-1.0)
[2023-04-27 16:47] LABS: ALKALINE PHOSPHATASE 94 U/L (40-136); CREATININE SERUM 0.93 MG/DL (0.60-1.30); GFR ESTIMATED 74
[2023-04-27 16:48] LABS: BUN/CREATININE RATIO 13
[2023-04-27 16:50] LABS: ALANINE AMINOTRANSFERASE 23 U/L (0-55); MAGNESIUM 1.8 MG/DL (1.6-2.4)
[2023-04-27 17:16] VITALS: BP 120/50
== END 2023-04-27 17:18 | disposition home or self-care (01) ==
LOC: EDUNIT# 15:58 → ER 15:58
DX: R07.89 Other chest pain (principal); E66.01 Morbid (severe) obesity due to excess calories; F17.290 Nicotine dependence, other tobacco product, uncomplicated; Z68.41 Body mass index [BMI] 40.0-44.9, adult
CPT/HCPCS: 36415; 71045; 80053; 83735; 84484; 85025; 93005; 93041

== ENCOUNTER 2023-05-08 18:45 | Emergency (ER) | payer MEDICAID ==
[2023-05-08] MEDS ORDERED: TETANUS,DIPTH,PERTUSS P/F (BOOSTRIX) 0.5 ML VIAL IM ONE (19:15)
--- NOTE | 2023-05-08 19:19 | ED Lower Extremity ---
General Chief Complaint: Laceration Stated Complaint: RIGHT LEG INJ History of Present Illness Date Seen by Provider: May 08, 2023 Time Seen by Provider: 19:10 Initial Comments 52 year old female was cutting vinyl with an exacto knife when it fell and caused cut to her right inner calf. Unsure of last tetanus vaccine. She is diabetic, blood sugars run 160-180. No other injuries. Onset: just prior to arrival Pain/Injury Location: right leg Method of Injury: incised Allergies and Home Medications Allergies Coded Allergies: No Known Drug Allergies (Verified , 10/31/07) Uncoded Allergies: NKDA (Allergy, Mild, 04/04/09) Patient Home Medication List Home Medication List Reviewed: Yes Albuterol Sulfate (Albuterol Sulfate) 2.5 Mg/3 Ml Vial.neb, 2.5 MG IH Q4H Prescribed by: MISSY LUTHER on 10/19/17 1101 Amoxicillin/Potassium Clav (Augmentin 250-62.5 mg/5 ml) 250 Mg/5 Ml Susp.recon, 2 TSP PO TID Prescribed by: GEE CAPONE on 04/29/18 211 Azithromycin (Azithromycin) 250 Mg Tablet, 250 MG PO UD Prescribed by: MISSY LUTHER on 12/30/17 0741 Butalb/Acetaminophen/Caffeine (Ofbhul-Ertfzmti-Iicf 50-300-40) 1 Each Capsule, 1 EACH PO Q4H PRN for headache Prescribed by: GEE CAPONE on 10/22/19 2319 Cephalexin (Keflex) 500 Mg Capsule, 500 MG PO TID Prescribed by: MISSY LUTHER on 06/26/19 224 Cephalexin (Cephalexin) 500 Mg Tablet, 500 MG PO BID Prescribed by: VICK ALDRIDGE MD on 09/20/22 0100 Fluconazole (Diflucan) 150 Mg Tablet, 150 MG PO ONCE Prescribed by: MISSY LUTHER on 06/26/19 224 Fluconazole (Diflucan) 200 Mg Tablet, 200 MG PO DAILY Prescribed by: AMBROSE WELLINGTON on 08/20/19 0259 Hyoscyamine Sulfate (Levsin-Sl) 0.125 Mg Tab.subl, 0.125 MG SL Q4H PRN for CRAMP S Prescribed by: MISSY LUTHER on 12/19/17 2250 Ipratropium/Albuterol Sulfate (Combivent Inhaler) 14.7 Gm Aer.w.adap, (Reported) Entered as Reported by: TRACEY MONTEMAYOR on 08/15/09 182 Miconazole Nitrate (Monistat 7) 45 Gm Cream.appl, 45 GM VG HS Prescribed by: AMBROSE WELLINGTON on 08/20/19 025 Mupirocin (Mupirocin) 1 Gm Oin.pf.yonny, 1 GM TP BID Prescribed by: AMBROSE WELLINGTON on 08/20/19 025 Ondansetron (Ondansetron Odt) 4 Mg Tab.rapdis, 4 MG SL Q4H PRN for NAUSEA/VOMITING-1ST LINE Prescribed by: MISSY LUTHER on 06/26/19 224 Ondansetron (Ondansetron Odt) 4 Mg Tab.rapdis, 4 MG PO Q6H PRN for NAUSEA/VOMITING Prescribed by: LAURIE ARORA on 03/29/22 0313 Pantoprazole Sodium (Protonix) 40 Mg Tablet.dr, 40 MG PO DAILY Prescribed by: GEE CAPONE on 04/29/18 2118 Prednisone (Prednisone) 10 Mg Tab, 10 MG PO UD Prescribed by: MISSY LUTHER on 10/19/17 1101 Prednisone (Prednisone) 20 Mg Tab, 20 MG PO DAILY Prescribed by: MISSY LUTHER on 12/30/17 0741 Sulfamethoxazole/Trimethoprim (Bactrim Ds Tablet) 1 Each Tablet, 1 EACH PO BID Prescribed by: AMBROSE WELLINGTON on 08/20/19258 Review of Systems Constitutional: no symptoms reported, see HPI Skin: see HPI, other (laceration right lower leg) All Other Systems Reviewed Negative Unless Noted: Yes Past Ocjermu-Qcdoeb-Vcdxgd Hx Immunizations Up To Date PED Vaccines UTD: Yes First/Initial COVID19 Vaccinat: 2020 Second COVID19 Vaccination Melquiades: 2020 Third COVID19 Vaccination Date: NONE Seasonal Allergies Seasonal Allergies: No Past Medical History Surgery/Hospitalization HX: ASTHMA, DM2, DEGENERATIVE DISC DISEASE Surgeries: Yes (LITHOTRIPSY) Section, Gallbladder, Renal, Tonsillectomy Respiratory: Yes Asthma Cardiac: Yes High Cholesterol Neurological: No Reproductive Disorders: No Genitourinary: Yes Bladder Infection, Kidney Stones Gastrointestinal: Yes Gastroesophageal Reflux Musculoskeletal: Yes Degenerate Disk Disease, Chronic Back Pain Endocrine: Yes (EXTREME NON-COMPLIANCE; MORBID OBESITY) Hypothyroidsim, Diabetes, Non-Insulin dep HEENT: No Cancer: No Psychosocial: Yes Sleep Difficulties, Anxiety Integumentary: Yes (CANDIDIASIS, SKIN ABSCESSES/CELLULITIS) Blood Disorders: No Family Medical History Reviewed Nursing Family Hx No Pertinent Family Hx Physical Exam Vital Signs Vital Signs - First Documented 05/08/23 19:09 Temp 36.0 Pulse 73 Resp 16 B/P (MAP) 129/89 (102) Pulse Ox 100 O2 Delivery Room Air Capillary Refill : Height, Weight, BMI Height: 5'3.00" Weight: 240lbs. 14.4oz. 108.859608tw; 40.00 BMI Method:Stated General Appearance: WD/WN, no apparent distress Cardiovascular: normal peripheral pulses, regular rate, rhythm Respiratory: chest non-tender, lungs clear Legs: right leg normal range of motion, right leg abrasions (1.2 cm laceration to right medial calf) Neurologic/Psychiatric: no motor/sensory deficits, alert, normal mood/affect, oriented x 3 Skin: normal color, warm/dry Procedures/Interventions Wound Location: Lower Extremities (right medial calf) Wound Length (cm): 1.2 Wound's Depth, Shape: superficial Wound Explored: clean Irrigated w/ Saline (ccs): 100 Betadine Prep?: Yes Anesthesia: 1% Lidocaine Volume Anesthetic (ccs): 2 Suture: Ethlion Suture Size: 4-0 Number of Sutures: 2 Sterile Dressing Applied?: Yes Progress Wound well approximated, patient tolerated well. Bulky sterile dressing applied. Progress/Results/Core Measures Results/Orders My Orders Orders - ONEIL MOREIRA Dipht,Pertuss(Acell),Tet Adult (Boostrix (05/08/23 19:15) Medications Given in ED Current Medications Medications Dose Ordered Sig/Luis Route Start Time Stop Time Status Last Admin Dose Admin Diphtheria/ Tetanus/Acell Pertussis 0.5 ml ONCE ONCE IM 05/08/23 19:15 05/08/23 19:16 DC 05/08/23 19:21 0.5 ML Vital Signs/I&O 05/08/23 19:09 Temp 36.0 Pulse 73 Resp 16 B/P (MAP) 129/89 (102) Pulse Ox 100 O2 Delivery Room Air Departure Impression Primary Impression: Laceration Disposition: 01 HOME, SELF-CARE Condition: Improved Departure-Patient Inst. Decision time for Depature: 19:15 Referrals: [facility] (PCP) Primary Care Physician SUSAN COLEMAN DO (Family) Primary Care Physician Patient Instructions: Laceration Repair With Stitches (DC) Add. Discharge Instructions: Keep the dressing dry and in place for 24 hours, you may re-inforce if needed. Do not submerge the wound in standing water (tub, pool, sink, coleman, etc). Leave sutures in place, return to Emergency Dept or your Primary Care Provider in 7-10 days for removal. You may shower, do not have water hit directly over wound. Clean with peroxide after shower, leave open to air when at home, cover with dressing or band-aid when out of the house. Watch for signs of infection: Redness, increased tenderness, warmth, discolored drainage or foul smelling drainage. Return to the emergency department for new, urgent health care problems. All discharge instructions reviewed with patient and/or family. Voiced u nderstanding. ONEIL MOREIRA May 08, 2023 19:19
[2023-05-08 19:33] VITALS: BP 129/89
== END 2023-05-08 19:33 | disposition home or self-care (01) ==
LOC: EDUNIT# 18:45 → ER 18:47
DX: S81.811A Laceration without foreign body, right lower leg, initial encounter (principal); E66.01 Morbid (severe) obesity due to excess calories; Z68.41 Body mass index [BMI] 40.0-44.9, adult; Z23 Encounter for immunization; W26.0XXA Contact with knife, initial encounter
CPT/HCPCS: 12001; 90715

== ENCOUNTER 2023-08-03 11:14 | Emergency (ER) | payer MEDICAID ==
[~2023-08-03] VITALS: Ht 160 cm; Wt 106.0 kg
--- NOTE | 2023-08-03 11:33 | ED Cough/URI ---
General Chief Complaint: COVID19 Suspect/Confirmed Stated Complaint: COVID-LIKE SYMPTOMS Nursing Triage Note: PT AMB TO RM 9 PT STATES HAS COUGH, HAD LOSS OF SMELL, BOYFRIEND HAS COVID. PT HAS HAD SX FOR 4-5 DAYS. PT WANTING PAXLOVID. Source: patient Exam Limitations: no limitations History of Present Illness Date Seen by Provider: Aug 03, 2023 Time Seen by Provider: 11:21 Initial Comments 53-year-old female presents to the ER with concerns of COVID-like symptoms. She states she has had posterior nasal drainage which results in a cough, loss of smell, and subjective fevers and chills for the past 4 days. She states that her boyfriend tested positive for COVID. She denies shortness of air, abdominal pain, nausea, vomiting. Past medical history includes diabetes, asthma, hyperlipidemia. Allergies and Home Medications Allergies Coded Allergies: No Known Drug Allergies (Verified , 10/31/07) Uncoded Allergies: NKDA (Allergy, Mild, 04/04/09) Patient Home Medication List Home Medication List Reviewed: Yes Albuterol Sulfate (Albuterol Sulfate) 2.5 Mg/3 Ml Vial.neb, 2.5 MG IH Q4H Prescribed by: MISSY LUTHER on 10/19/17 1101 Amoxicillin/Potassium Clav (Augmentin 250-62.5 mg/5 ml) 250 Mg/5 Ml Susp.recon, 2 TSP PO TID Prescribed by: GEE CAPONE on 04/29/182118 Azithromycin (Azithromycin) 250 Mg Tablet, 250 MG PO UD Prescribed by: MISSY LUTHER on 12/30/17 0741 Butalb/Acetaminophen/Caffeine (Cgdput-Nfqezrhr-Lxrd 50-300-40) 1 Each Capsule, 1 EACH PO Q4H PRN for headache Prescribed by: GEE CAPONE on 10/22/19 2319 Cephalexin (Keflex) 500 Mg Capsule, 500 MG PO TID Prescribed by: MISSY LUTHER on 06/26/19 224 Cephalexin (Cephalexin) 500 Mg Tablet, 500 MG PO BID Prescribed by: VICK ALDRIDGE MD on 09/20/22 0100 Fluconazole (Diflucan) 150 Mg Tablet, 150 MG PO ONCE Prescribed by: MISSY LUTHER on 06/26/192241 Fluconazole (Diflucan) 200 Mg Tablet, 200 MG PO DAILY Prescribed by: AMBORSE WELLINGTON on 08/20/19258 Hyoscyamine Sulfate (Levsin-Sl) 0.125 Mg Tab.subl, 0.125 MG SL Q4H PRN for CRAMPS Prescribed by: MISSY LUTHER on 12/19/17 225 Ipratropium/Albuterol Sulfate (Combivent Inhaler) 14.7 Gm Aer.w.adap, (Reported) Entered as Reported by: TRACEY MONTEMAYOR on 08/15/09 182 Miconazole Nitrate (Monistat 7) 45 Gm Cream.appl, 45 GM VG HS Prescribed by: AMBROSE WELLINGTON on 08/20/19258 Mupirocin (Mupirocin) 1 Gm Oin.pf.yonny, 1 GM TP BID Prescribed by: AMBROSE WELLINGTON on 08/20/19258 Nirmatrelvir/Ritonavir (Paxlovid 300-100 mg Pack (Eua)) 300 Mg (150 Mg X 2)-100 Mg Tab.ds.pk, 1 EACH PO BID Prescribed by: Kenia Vela on 08/03/23 1241 Ondansetron (Ondansetron Odt) 4 Mg Tab.rapdis, 4 MG SL Q4H PRN for NAUSEA/VOMITING-1ST LINE Prescribed by: MISSY LUTHER on 06/26/192241 Ondansetron (Ondansetron Odt) 4 Mg Tab.rapdis, 4 MG PO Q6H PRN for NAUSEA/VOMITING Prescribed by: LAURIE ARORA on 03/29/22 0313 Pantoprazole Sodium (Protonix) 40 Mg Tablet.dr, 40 MG PO DAILY Prescribed by: GEE CAPONE on 04/29/18 2118 Prednisone (Prednisone) 10 Mg Tab, 10 MG PO UD Prescribed by: MISSY LUTHER on 10/19/17 1101 Prednisone (Prednisone) 20 Mg Tab, 20 MG PO DAILY Prescribed by: MISSY LUTHER on 12/30/17 0741 Sulfamethoxazole/Trimethoprim (Bactrim Ds Tablet) 1 Each Tablet, 1 EACH PO BID Prescribed by: AMBROSE WELLINGTON on 08/20/19258 Review of Systems Review of Systems Constitutional: see HPI Past Nmrgokm-Mxuqpt-Wqknqw Hx Patient Social History Tobacco Use?: Yes Tobacco type used: Cigarettes Smoking Status: Current Everyday Smoker Use of E-Cig and/or Vaping dev: Yes E-Cig or Vaping type used: Marijuana Use of E-Cig and/or Vaping Yusuf: Current Everyday User Substance use?: Yes Substance type: Marijuana Substance frequency: Daily Alcohol Use?: No Pt feels they are or have been: No Immunizations Up To Date PED Vaccines UTD: Yes First/Initial COVID19 Vaccinat: 2020 Second COVID19 Vaccination Melquiades: 2020 Third COVID19 Vaccination Date: 2020 Seasonal Allergies Seasonal Allergies: No Past Medical History Surgery/Hospitalization HX: ASTHMA, DM2, DEGENERATIVE DISC DISEASE Surgeries: Yes (LITHOTRIPSY) Section, Gallbladder, Renal, Tonsillectomy Respiratory: Yes Asthma Cardiac: Yes High Cholesterol Neurological: No Reproductive Disorders: No Genitourinary: Yes Bladder Infection, Kidney Stones Gastrointestinal: Yes Gastroesophageal Reflux Musculoskeletal: Yes Degenerate Disk Disease, Chronic Back Pain Endocrine: Yes (EXTREME NON-COMPLIANCE; MORBID OBESITY) Hypothyroidsim, Diabetes, Non-Insulin dep HEENT: No Cancer: No Psychosocial: Yes Sleep Difficulties, Anxiety Integumentary: Yes (CANDIDIASIS, SKIN ABSCESSES/CELLULITIS) Blood Disorders: No Family Medical History No Pertinent Family Hx Physical Exam Vital Signs - First Documented 08/03/23 11:20 Temp 36.5 Pulse 78 Resp 18 B/P (MAP) 120/67 (84) Pulse Ox 98 Capillary Refill : Less Than 3 Seconds Height: 5'3.00" Weight: 240lbs. 14.4oz. 108.529827ad; 41.00 BMI Method:Stated General Appearance: WD/WN, no apparent distress Neck: supple, normal inspection Respiratory: lungs clear, normal breath sounds, no respiratory distress, no accessory muscle use Cardiovascular: regular rate, rhythm Extremities: normal range of motion, normal inspection Neurologic/Psychiatric: alert, normal mood/affect Skin: normal color, warm/dry Procedures/Interventions Suture Size: 4-0 Progress/Results/Core Measures Suspected Sepsis SIRS Temperature: Pulse: 78 Respiratory Rate: 18 Blood Pressure 120 /67 Mean: 84 Results/Orders Lab Results Laboratory Tests Test 08/03/23 11:28 Range/Units Influenza Type A (RT-PCR) Not Detected Not Detecte Influenza Type B (RT-PCR) Not Detected Not Detecte SARS-CoV-2 RNA (RT-PCR) Detected H Not Detecte My Orders Orders - KENIA GOMEZ APRN Covid 19 Inhouse Test (08/03/23 11:20) Influenza A And B By Pcr (08/03/23 11:20) Vital Signs/I&O 08/03/23 08/03/23 11:20 12:55 Temp 36.5 36.5 Pulse 78 78 Resp 18 18 B/P (MAP) 120/67 (84) 120/67 Pulse Ox 98 98 Capillary Refill : Less Than 3 Seconds Blood Pressure Mean: 84 Progress Note : Progress Note Patient seen and evaluated, resting comfortably in bed, no acute distress. Based on exam and symptoms, COVID and flu swab ordered. Patient asking about Paxlovid. Discussed risks and benefits of Paxlovid with patient. 1235 COVID test positive. Will prescribe Paxlovid. Patient given quarantine i nstructions. Discharge instructions and return precautions provided. Departure Impression Primary Impression: COVID-19 Disposition: 01 HOME, SELF-CARE Condition: Stable Departure-Patient Inst. Decision time for Depature: 12:36 Referrals: NO,LOCAL PHYSICIAN (PCP/Family) Primary Care Physician Patient Instructions: COVID-19 Home Care/Discharge Add. Discharge Instructions: Take Paxlovid as prescribed. If it causes severe side effects like vomiting and diarrhea, you may discontinue. It can also cause the COVID to return after you finish the course. It also interferes with a lot of medications, double check with your pharmacist that it does not interfere with your current medications. You should take zinc, vitamin D, vitamin C to help boost your immune system. Sure you drink plenty water, stay away from caffeinated, high sugar beverages. Return if you develop severe shortness of breath, or any other new, concerning, or worsening symptoms. All discharge instructions reviewed with patient and/or family. Voiced understanding. Scripts Nirmatrelvir/Ritonavir (Paxlovid 300-100 mg Pack (Eua)) 300 Mg (150 Mg X 2)-100 Mg Tab.ds.pk 1 EACH PO BID for 5 Days, #1 PKG 0 Refills Prov: KENIA GOMEZ APRN 08/03/23 KENIA GOMEZ APRN Aug 03, 2023 11:33
[2023-08-03] MEDS ORDERED: NIRM1TAB PO (12:41)
[2023-08-03 12:55] VITALS: BP 120/67
== END 2023-08-03 12:55 | disposition home or self-care (01) ==
LOC: EDUNIT# 11:14 → ER 11:17
DX: U07.1 COVID-19 (principal); R05.9 Cough, unspecified; R50.9 Fever, unspecified; R09.89 Other specified symptoms and signs involving the circulatory and respiratory systems; E66.01 Morbid (severe) obesity due to excess calories; F17.210 Nicotine dependence, cigarettes, uncomplicated; Z68.41 Body mass index [BMI] 40.0-44.9, adult
CPT/HCPCS: 87636; 99283

== ENCOUNTER 2023-09-12 19:45 | Emergency (ER) | payer MEDICAID ==
[~2023-09-12] VITALS: Ht 160 cm; Wt 103.0 kg
[~2023-09-12 19:45] MED LIST changes: +NIRM1TAB PO
[2023-09-12 20:30] VITALS: BP 155/89
[2023-09-12] MEDS ORDERED: ATOR20TA66 (20:36)
[2023-09-12] MEDS ORDERED: TIRZ5PEN (20:36)
[2023-09-12] MEDS ORDERED: SITA100T12 (20:36)
[2023-09-12] MEDS ORDERED: ROPI3TAB21 (20:36)
[2023-09-12] MEDS ORDERED: GABA800T10 (20:36)
[2023-09-12] MEDS ORDERED: BUPR150T24 (20:36)
[2023-09-12] MEDS ORDERED: LISI1TAB46 (20:36)
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
[2023-09-12] MEDS ORDERED: CEPHALEXIN 250 MG CAPSULE PO ONE (21:00)
[2023-09-12] MEDS ORDERED: Sulfamethoxazole/Trimethoprim DS TABLET PO ONE (21:00)
[2023-09-12] MEDS ORDERED: CEPH500T PO (21:04)
== END 2023-09-12 21:06 | disposition home or self-care (01) ==
LOC: EDUNIT# 19:45 → ER 19:48
DX: L03.115 Cellulitis of right lower limb (principal); L03.116 Cellulitis of left lower limb
CPT/HCPCS: 87070; 87077; 87205; 99283

== ENCOUNTER → 2023-09-14 | Outpatient (CLI) | payer MEDICAID ==
[~2023-09-14] MED LIST changes: +ATOR20TA66; +BUPR150T24; +GABA800T10; +LISI1TAB46; +ROPI3TAB21; +SITA100T12; +TIRZ5PEN
[2023-09-14 13:25] LABS: BASOPHILS # (AUTO) 0.2 10^3/uL (0.0-0.1); BASOPHILS % (AUTO) 1 % (0-10); EOSINOPHILS # (AUTO) 0.4 10^3/uL (0.0-0.3); EOSINOPHILS % (AUTO) 3 % (0-10); HEMATOCRIT 38 % (35-52); HEMOGLOBIN 11.9 g/dL (11.5-16.0); LYMPHOCYTES # (AUTO) 2.3 10^3/uL (1.0-4.0); LYMPHOCYTES % (AUTO) 20 % (12-44); MEAN CORPUSCULAR HEMOGLOBIN 25 pg (25-34); MEAN CORPUSCULAR HGB CONC 32 g/dL (32-36); MEAN CORPUSCULAR VOLUME 78 fL (80-99); MEAN PLATELET VOLUME 9.7 fL (9.0-12.2); MONOCYTES # (AUTO) 0.7 10^3/uL (0.0-1.0); MONOCYTES % (AUTO) 6 % (0-12); NEUTROPHILS # (AUTO) 7.9 10^3/uL (1.8-7.8); NEUTROPHILS % (AUTO) 69 % (42-75); PLATELET COUNT 447 10^3/uL (130-400); WHITE BLOOD COUNT 11.5 10^3/uL (4.3-11.0)
[2023-09-14 13:46] LABS: ALBUMIN 3.5 GM/DL (3.2-4.5); BILIRUBIN,TOTAL 0.3 MG/DL (0.1-1.0); CALCIUM 8.8 MG/DL (8.5-10.1); CREATININE SERUM 0.84 MG/DL (0.60-1.30); POTASSIUM 3.8 MMOL/L (3.6-5.0); TOTAL PROTEIN 7.1 GM/DL (6.4-8.2)
[2023-09-14 13:57] LABS: ERYTHROCYTE SEDIMENTATION RATE 30 MM/HR (0-30)
== END ==
LOC: WOUNDCARE 12:08
PROVIDERS: ATTEND Family Medicine
DX: E11.622 Type 2 diabetes mellitus with other skin ulcer (principal); L97.212 Non-pressure chronic ulcer of right calf with fat layer exposed; L97.222 Non-pressure chronic ulcer of left calf with fat layer exposed; A49.8 Other bacterial infections of unspecified site; S80.852A Superficial foreign body, left lower leg, initial encounter; E66.01 Morbid (severe) obesity due to excess calories; F17.210 Nicotine dependence, cigarettes, uncomplicated; E11.52 Type 2 diabetes mellitus with diabetic peripheral angiopathy with gangrene
CPT/HCPCS: 11042; 11045; 36415; 80053; 85025; 85652; 86141; 87070; 87205

== ENCOUNTER → 2023-09-21 | Outpatient (CLI) | payer MEDICAID | LOC: WOUNDCARE 09:48 | PROVIDERS: ATTEND Family Medicine | DX: E11.622 Type 2 diabetes mellitus with other skin ulcer (principal); L97.212 Non-pressure chronic ulcer of right calf with fat layer exposed; L97.222 Non-pressure chronic ulcer of left calf with fat layer exposed; E66.01 Morbid (severe) obesity due to excess calories; A49.01 Methicillin susceptible Staphylococcus aureus infection, unspecified site; F17.210 Nicotine dependence, cigarettes, uncomplicated; E11.52 Type 2 diabetes mellitus with diabetic peripheral angiopathy with gangrene | CPT/HCPCS: 11042; 11045 ==

== ENCOUNTER → 2023-09-28 | Outpatient (CLI) | payer MEDICAID | LOC: WOUNDCARE 13:24 | PROVIDERS: ATTEND Family Medicine | DX: E11.622 Type 2 diabetes mellitus with other skin ulcer (principal); L97.212 Non-pressure chronic ulcer of right calf with fat layer exposed; L97.222 Non-pressure chronic ulcer of left calf with fat layer exposed; E66.01 Morbid (severe) obesity due to excess calories; I89.0 Lymphedema, not elsewhere classified; F17.210 Nicotine dependence, cigarettes, uncomplicated; E11.52 Type 2 diabetes mellitus with diabetic peripheral angiopathy with gangrene | CPT/HCPCS: 11042; 11045 ==

== ENCOUNTER → 2023-10-06 | Outpatient (CLI) | payer MEDICAID | LOC: WOUNDCARE 13:25 | PROVIDERS: ATTEND Family Medicine | DX: S80.811A Abrasion, right lower leg, initial encounter (principal); S80.812A Abrasion, left lower leg, initial encounter; E11.9 Type 2 diabetes mellitus without complications; E66.9 Obesity, unspecified; F17.210 Nicotine dependence, cigarettes, uncomplicated | CPT/HCPCS: 99212 ==